=== PATIENT | female | born 1955 | race Caucasian/White ===

== ENCOUNTER → 2019-08-03 10:33 | Outpatient (BNVA) | payer MEDICARE, MEDICAID, SELFPAY | PROVIDERS: Family Provider Family Medicine; Visit Provider Nurse Practitioner Psychiatric/Mental Health | DX: F43.12 Post-traumatic stress disorder, chronic (principal); F32.4 Major depressive disorder, single episode, in partial remission; F33.41 Major depressive disorder, recurrent, in partial remission | CPT/HCPCS: 99214 ==

== ENCOUNTER → 2019-10-13 08:20 | Outpatient (BNVA) | payer MEDICARE, MEDICAID, SELFPAY | PROVIDERS: Family Provider Family Medicine; Visit Provider Nurse Practitioner Psychiatric/Mental Health | DX: F43.12 Post-traumatic stress disorder, chronic (principal); F32.4 Major depressive disorder, single episode, in partial remission; F33.41 Major depressive disorder, recurrent, in partial remission; F41.8 Other specified anxiety disorders | CPT/HCPCS: 99214 ==

== ENCOUNTER → 2019-10-27 07:40 | Outpatient (BNVA) | payer MEDICARE, MEDICAID, SELFPAY | PROVIDERS: Family Provider Family Medicine; Visit Provider Nurse Practitioner Psychiatric/Mental Health | DX: F43.12 Post-traumatic stress disorder, chronic (principal); F32.4 Major depressive disorder, single episode, in partial remission; F33.41 Major depressive disorder, recurrent, in partial remission; F41.8 Other specified anxiety disorders | CPT/HCPCS: 99214 ==

== ENCOUNTER → 2019-11-23 07:30 | Outpatient (BNVA) | payer MEDICARE, MEDICAID, SELFPAY | PROVIDERS: Family Provider Family Medicine; Visit Provider Nurse Practitioner Psychiatric/Mental Health | DX: F33.41 Major depressive disorder, recurrent, in partial remission (principal); F41.8 Other specified anxiety disorders; F43.12 Post-traumatic stress disorder, chronic | CPT/HCPCS: 99214 ==

== ENCOUNTER 2019-11-25 00:02 | Emergency (ER) | payer MEDICARE, MEDICAID, SELFPAY ==
[2019-11-25 00:06] VITALS: BP 143/84; PULSE 87; RESP 18; TEMP 36.1; O2SAT 97; BMI 34.5
--- NOTE | 2019-11-25 00:09 | W.ED.EYEPROB ---
HPI - Eye Problem General: Chief complaint: Eye Problems Stated complaint: FOREIGN BODY IN EYE Time Seen by Provider: 11/25/19 00:09 Source: patient Mode of arrival: ambulatory Limitations: no limitations History of Present Illness: HPI Narrative: Patient comes in for eye irritation to the left eye. Patient states that while she was reading she felt like something had gone into her eye. Patient had rubbed it quite a bit at home but and check to see if she got out but could not tell. Patient appears well. Patient appears in no acute distress at this time. Review of Systems General: Reports: 10 or more systems reviewed and unremarkable except in HPI and below Eyes: Reports: eye discomfort PFSH ED PFSH: Medical History (Updated 11/25/19 @ 00:31 by [facility] Mitchell) Chronic post-traumatic stress disorder High blood pressure High cholesterol History of fibromyalgia History of skull fracture Major depressive disorder, recurrent episode, in partial remission with anxious distress Neuropathy Obstructive sleep apnea Osteoarthritis Type 2 diabetes mellitus Surgical History (Updated 06/30/19 @ 15:14 by Lisa Solorzano LPN) History of bilateral knee replacement History of carpal tunnel surgery Hx of rotator cuff surgery Family History (Updated 06/30/19 @ 15:16 by Lisa Solorzano LPN) Son Suicide Other Diabetes Hypertension Psychiatric illness Social History (Updated 08/03/19 @ 10:38 by Lisa Solorzano LPN) Smoking and tobacco status: never smoked Physical Exam Const: COMMON NORMALS: no acute distress and patient oriented x3 GENERAL APPEARANCE: cooperative HENMT: COMMON NORMALS: normocephalic, TM's normal bilaterally and Normal external nose present HEAD & SCALP: normal to inspection and normocephalic NOSE: Normal external nose present TYMPANIC MEMBRANE: TM's normal bilaterally MOUTH: Normal oral and palatal mucosa present THROAT: posterior oropharynx normal Eye: COMMON NORMALS: Equal, round and reactive pupils present and conjunctivae normal GENERAL EYE: appearance normal, both eyes and all related structures and normal light reflex EYELID: eyelids normal CONJUNCTIVA: Yes conjunctivae normal PUPIL: Yes Equal, round and reactive pupils present DIRECT OPHTHALMOSCOPY: Yes normal light reflex SLIT LAMP EXAM: Yes cornea (No foreign body was present. Eye was irrigated and medication was applied for comfort.) Cornea details: normal appearing Neck/C-Spine: COMMON NORMALS: full ROM Lymph: LYMPHATIC: no lymphadenopathy noted Chest: COMMONS NORMALS: normal inspection of the chest Resp: COMMON NORMALS: normal respiratory effort EFFORT & INSPECTION: Yes able to speak in complete sentences Cardio: COMMON NORMALS: regular rate and regular rhythm RATE: regular rate RHYTHM: regular rhythm GI: COMMON NORMALS: non-tender : COMMON NORMALS: Yes no CVA tenderness BLADDER/KIDNEY EXAM: Yes no CVA tenderness Back/Pelvis: COMMON NORMALS: no CVA tenderness and thoracic and lumbar spine normal to inspection Extremity: COMMON NORMALS: normal to inspection Neuro: COMMON NORMALS: patient oriented x3 and moves all extremities Psych: COMMON NORMALS: mental status grossly normal and cooperative Skin: COMMON NORMALS: no rashes or lesions noted GENERAL SKIN EXAM: no rashes or lesions noted Procedures FB Removal Eye Location: eye (L) Topical anesthetic used: tetracaine Evidence of corneal penetration: No Technique: irrigation Procedure performed under: direct visualization with magnification Post-procedure medication: ophthalmic antibiotic Patient tolerated procedure: well Complications: other (No foreign body was identified before or after procedure.) Course Vital Signs: Vital signs: Vital Signs Temperature 97.0 F L 11/25/19 00:06 Pulse Rate 87 20 00:06 Respiratory Rate 18 20 00:06 Blood Pressure 143/84 11/25/19 00:06 Pulse Oximetry 97 11/25/19 00:06 MDM - Eye Problem MDM Narrative: Medical decision making narrative: Patient comes in today for complaints of discomfort to the left eye. On exam fluorescein stain was used along with lidocaine and eyestrain medication to clear the eye of any foreign body. No foreign body was located. No significant abrasion or corneal scratch was noted. Differential diagnosis includes foreign body, corneal abrasion, conjunctivitis. I believe the patient probably had a foreign body in the eye and an she has sustained a small scratch to the cornea that was unable to visualize due to either placement or location of the scratch under the upper eyelid. We had thoroughly irrigated the eye. Patient tolerated well and felt better after procedure. Patient will be continued on antibiotic ointment eyedrops with steroid for comfort. Patient reports understanding of care plan and need for follow-up. Discharge Plan Discharge Patient Disposition: Home, Self-Care Clinical Impression: Sensation of foreign body in eye Condition: Stable Prescriptions: No Action gabapentin 300 mg capsule 300 mg PO DAILY RF: 0 omega-3 fatty acids [Fish Oil Concentrate] 1,000 mg capsule 1,000 mg PO BID RF: 0 tramadol 50 mg tablet 50 mg PO DAILY PRNRF: 0 hydrocodone-acetaminophen 10-325 mg tablet 1 tab PO Q4H PRNRF: 0 meloxicam 7.5 mg tablet 7.5 mg PO ONCE RF: 0 atorvastatin 80 mg tablet 80 mg PO ONCE RF: 0 topiramate [Topamax] 100 mg tablet 100 mg PO BID RF: 0 levocetirizine [Allergy Relief (levocetirizin)] 5 mg tablet 5 mg PO ONCE RF: 0 oxybutynin chloride 5 mg tablet extended release 24hr 10 mg PO ONCE RF: 0 metformin 500 mg tablet 1,000 mg PO BID RF: 0 lisinopril 10 mg tablet 5 mg PO DAILY RF: 0 venlafaxine [Effexor XR] 150 mg capsule,extended release 24hr 150 mg PO QAM Qty: 90 RF: 2 venlafaxine [Effexor XR] 75 mg capsule,extended release 24hr 75 mg PO QAM Qty: 90 RF: 2 aripiprazole [Abilify] 10 mg tablet 10 mg PO .evening Qty: 90 RF: 2 Discharge Orders: Discharge Order (Routine); Ordered 11/25/19 Ordered By: Luis Goins Referrals: Savannah Jerry MD [Family Provider] - Discharge Diet: Usual diet Discharge Activity: Increase activity as tolerated Activity Restrictions/Additional Instructions: Home and rest. Use eyedrops 1 drop to the affected eye 4 times a day for the next 3 to 5 days. Have eye rechecked in 3 days if continued complaints. Return to the ER for worsening symptoms or new concerns. Coding Level of Care Code ED Hydraulic Controls Technician for Gloria Valdez Exam Comprehensive
[2019-11-25] MEDS: tobramycin-dexametha Op Susp 5 mL Btl 2 DROP EYE-LEFT (00:30)
[2019-11-25] MEDS: tetracaine 0.5% Op Soln 4 mL Btl 1 DROP EYE-LEFT (00:31)
[2019-11-25] MEDS: fluorescein 1 mg Strip EYE-LEFT (00:32)
[2019-11-25] MEDS: eye irrigation 30 mL Btl EYE-LEFT (00:32)
== END 2019-11-25 00:40 | disposition home or self-care (01) ==
PROVIDERS: Emergency Provider Nurse Practitioner Family; Family Provider Family Medicine
DX: H57.12 Ocular pain, left eye (principal); E11.40 Type 2 diabetes mellitus with diabetic neuropathy, unspecified
CPT/HCPCS: 12345; 99281; 99283

== ENCOUNTER 2019-12-03 20:54 | Emergency (ER) | payer MEDICARE, MEDICAID, SELFPAY ==
[2019-12-03 21:01] VITALS: BP 100/72; PULSE 88; RESP 18; TEMP 36.4; O2SAT 97; BMI 34.0
--- NOTE | 2019-12-03 21:10 | ED_ITS ---
HPI - Skin/Abscess/Foreign Bdy General: Chief complaint: Skin/Abscess/Foreign Body Stated complaint: bite Time Seen by Provider: 12/03/19 21:05 History of Present Illness: HPI narrative: Patient states he was bit by some earlier today near her left elbow and is just been itching ever since and she like to have some medicine for the itching has no other signs of allergic reaction MD complaint: insect bite/sting Onset (ago): hour(s) Tetanus up to date: yes Location: LUE Severity: mild Quality: pruritic Associated symptoms: Deny chills, fever(s), nausea or vomiting Review of Systems Const: Denies: fever(s), chills or body aches Eyes: Denies: change in vision or blurry vision ENMT: Denies: throat pain or nasal congestion Card: Denies: chest pain or dyspnea on exertion Resp: Denies: dyspnea, productive cough or non-productive cough GI: Denies: abdominal pain, nausea or vomiting Musc: Denies: extremity pain Skin/Breast: Reports: other (Insect bite left elbow); Denies: rash Neuro: Denies: headache(s) Psych: Denies: anxiety or depression Raymond/Lymph: Denies: easy bruising PFSH ED PFSH: Medical History (Updated 12/03/19 @ 21:10 by [facility] Mcfarland) Chronic post-traumatic stress disorder High blood pressure High cholesterol History of fibromyalgia History of skull fracture Major depressive disorder, recurrent episode, in partial remission with anxious distress Neuropathy Obstructive sleep apnea Osteoarthritis Type 2 diabetes mellitus Surgical History (Updated 06/30/19 @ 15:14 by Lisa Solorzano LPN) History of bilateral knee replacement History of carpal tunnel surgery Hx of rotator cuff surgery Family History (Updated 06/30/19 @ 15:16 by Lisa Solorzano LPN) Son Suicide Other Diabetes Hypertension Psychiatric illness Social History (Updated 08/03/19 @ 10:38 by Lisa Solorzano LPN) Smoking and tobacco status: never smoked Physical Exam Const: COMMON NORMALS: no acute distress, average body habitus and patient oriented x3 HENMT: COMMON NORMALS: normocephalic HEAD & SCALP: normal to inspection and normocephalic FACE & SINUS: normal facial exam Eye: COMMON NORMALS: conjunctivae normal GENERAL EYE: appearance normal, both eyes and all related structures CONJUNCTIVA: Yes conjunctivae normal Neck/C-Spine: COMMON NORMALS: no JVD Chest: COMMONS NORMALS: normal inspection of the chest Resp: COMMON NORMALS: normal respiratory effort and clear to auscultation bilaterally AUSCULTATION: clear to auscultation bilaterally Cardio: COMMON NORMALS: no JVD, regular rate and regular rhythm RATE: regular rate RHYTHM: regular rhythm GI: COMMON NORMALS: Normal to inspection, nondistended, normoactive bowel sounds present Extremity: COMMON NORMALS: normal to inspection and full ROM Neuro: COMMON NORMALS: patient oriented x3 Skin: NARRATIVE SKIN EXAM: Slight area of redness to the left elbow obvious bite but no erythema no swelling no rashes Course Vital Signs: Vital signs: Vital Signs Temperature 97.5 F L 12/03/19 21:01 Pulse Rate 88 12/03/19 21:01 Respiratory Rate 18 12/03/19 21:01 Blood Pressure 100/72 12/03/19 21:01 Pulse Oximetry 97 12/03/19 21:01 Discharge Plan Discharge Patient Disposition: Home, Self-Care Clinical Impression: Insect bites Qualifiers: Encounter type: initial encounter Site of insect bite: forearm Laterality: left Qualified Code(s): S50.862A - Insect bite (nonvenomous) of left forearm, initial encounter Condition: Stable Prescriptions: New hydroxyzine HCl 25 mg tablet 25 mg PO TID PRN (Reason: itching) Qty: 10 RF: 0 Medrol (Robert) 4 mg tablets,dose pack See Rx Instructions .ROUTE .COMPLEX Qty: 21 RF: 0 No Action gabapentin 300 mg capsule 300 mg PO DAILY RF: 0 omega-3 fatty acids [Fish Oil Concentrate] 1,000 mg capsule 1,000 mg PO BID RF: 0 tramadol 50 mg tablet 50 mg PO DAILY PRNRF: 0 hydrocodone-acetaminophen 10-325 mg tablet 1 tab PO Q4H PRNRF: 0 meloxicam 7.5 mg tablet 7.5 mg PO ONCE RF: 0 atorvastatin 80 mg tablet 80 mg PO ONCE RF: 0 topiramate [Topamax] 100 mg tablet 100 mg PO BID RF: 0 levocetirizine [Allergy Relief (levocetirizin)] 5 mg tablet 5 mg PO ONCE RF: 0 oxybutynin chloride 5 mg tablet extended release 24hr 10 mg PO ONCE RF: 0 metformin 500 mg tablet 1,000 mg PO BID RF: 0 lisinopril 10 mg tablet 5 mg PO DAILY RF: 0 venlafaxine [Effexor XR] 150 mg capsule,extended release 24hr 150 mg PO QAM Qty: 90 RF: 2 venlafaxine [Effexor XR] 75 mg capsule,extended release 24hr 75 mg PO QAM Qty: 90 RF: 2 aripiprazole [Abilify] 10 mg tablet 10 mg PO .evening Qty: 90 RF: 2 Discharge Orders: Discharge Order (Routine); Ordered 12/03/19 Ordered By: Fabrizio Zhou Referrals: Savannah Jerry MD [Primary Care Provider] - Discharge Diet: Usual diet Discharge Activity: Resume usual activity Patient Instructions: Insect Bite or Sting (ED) Activity Restrictions/Additional Instructions: Follow-up with medical provider as directed. Take medications as prescribed. Return to the ER or your medical provider if condition worsens. Please read and understand discharge instructions. If any questions ask please. Coding Level of Care Code ED Computer Discovery Teacher for Gloria Valdez
[2019-12-03] MEDS: hyDROXYzine 25 mg Capsule PO (21:15)
[2019-12-03] MEDS: predniSONE 10 mg Tablet PO (21:15)
[2019-12-03 21:25] VITALS: BP 88/63; PULSE 93; RESP 19; O2SAT 97
== END 2019-12-03 21:26 | disposition home or self-care (01) ==
PROVIDERS: Emergency Provider Nurse Practitioner Family; PCP Family Medicine
DX: S50.862A Insect bite (nonvenomous) of left forearm, initial encounter (principal); W57.XXXA Bitten or stung by nonvenomous insect and other nonvenomous arthropods, initial encounter; E11.40 Type 2 diabetes mellitus with diabetic neuropathy, unspecified
CPT/HCPCS: 12345; 99281; 99283; J7512

== ENCOUNTER → 2020-01-18 08:23 | Outpatient (BNVA) | payer MEDICARE, MEDICAID, SELFPAY | PROVIDERS: PCP Family Medicine; Visit Provider Nurse Practitioner Psychiatric/Mental Health | DX: F33.41 Major depressive disorder, recurrent, in partial remission (principal); F41.8 Other specified anxiety disorders; F43.12 Post-traumatic stress disorder, chronic | CPT/HCPCS: 99213 ==

== ENCOUNTER 2020-03-05 09:37 | Outpatient (CLI) | payer MEDICARE, MEDICAID, SELFPAY ==
--- NOTE | 2020-03-05 09:47 | MM_ITS ---
WS: [id number] SCREENING DIGITAL MAMMOGRAM WITH CAD HISTORY: SCREENING COMPARISON: 02/15/2019, 02/13/2019, 01/26/2018 and 09/14/2012 Bilateral CC and MLO views submitted. Computer aided detection analyzed. Breast composition: There are scattered areas of fibroglandular density. Asymmetry noted in the anter ior LEFT breast above the nipple on the lateral projection measures 6 mm. This is probably just centr al or lateral to the nipple on the CC projection. This is not the same asymmetry as described on the prior mammogram. Additional benign calcifications. MM/[place] [id number] IMPRESSION: BI-RADS: 0-Incomplete: Need additional imaging evaluation FOLLOW UP: Need Additional Imaging LEFT breast: Spot compression views (CC and MLO). True ML. Ultrasound to follow if abnormality persists.
== END 2020-03-05 09:38 | disposition home or self-care (01) ==
PROVIDERS: PCP Nurse Practitioner Family; Visit Provider Family Medicine
DX: N64.89 Other specified disorders of breast (principal); Z12.31 Encounter for screening mammogram for malignant neoplasm of breast
CPT/HCPCS: 77067

== ENCOUNTER 2020-04-04 09:08 | Outpatient (CLI) | payer MEDICARE, MEDICAID, SELFPAY ==
--- NOTE | 2020-04-04 09:15 | US_ITS ---
WS: [id number] ADDITIONAL VIEWS LEFT MAMMOGRAM LEFT BREAST ULTRASOUND HISTORY: ABNORMAL MAMMOGRAM COMPARISON: 03/05/2020 and 02/15/2019 and 02/13/2019 LEFT MAMMOGRAM: Spot compression views and true ML. Asymmetry nearly completely resolves in the anterior breast. Small patch of persistent asymmetry at 1 2:00. Ultrasound will be performed. LEFT BREAST ULTRASOUND 2-D and color Doppler imaging submitted. Ultrasound directed circumferentially around the areola. There are several minimally prominent ducts and a small hypoechoic nodule measuring 8 x 3 mm at 12:00 which is benign in appearance and may be in spissated material in the duct. No increased vascularity. US/US breast LT limited* [id number] IMPRESSION: BI-RADS: 2-Benign FOLLOW UP: 1 Year Follow-up
== END 2020-04-04 09:09 | disposition home or self-care (01) ==
LOC: RADSHAW 09:11
PROVIDERS: PCP Nurse Practitioner Family; Visit Provider Nurse Practitioner Family
DX: R92.8 Other abnormal and inconclusive findings on diagnostic imaging of breast (principal); N63.25 Unspecified lump in the left breast, overlapping quadrants
CPT/HCPCS: 76642; 77065

== ENCOUNTER 2020-04-05 09:44 | Outpatient (CLI) | payer MEDICARE, MEDICAID, SELFPAY ==
--- NOTE | 2020-04-05 09:52 | US_ITS ---
WS: [id number] Gallbladder and right upper quadrant ultrasound, 04/05/2020 Clinical Data: EPIGASTRIC ABDOMINAL PAIN/DIARRHEA Comparison: None. Findings: The gallbladder shows no sludge or stone. The wall measures 0.3 cm with no pericholecystic fluid. The common bile duct is 0.3 cm and there are no intrahepatic ductal abnormalities. Liver shows no cysts, masses or dilated intrahepatic ducts. The liver is enlarged measuring 17.47 cm with fatty infiltration The pancreas is not obscured by overlying bowel gas and no cyst, pseudocyst, or evidence of pancreati tis is noted. Right kidney measures 9.9 cm and no cyst, masses or hydronephrosis can be seen. The aorta and inferior vena cava show no vascular abnormalities. US/US abdomen limited [id number] Impression: 1. Negative gallbladder. 2. Fatty infiltration of the liver and hepatomegaly.
== END 2020-04-05 09:45 | disposition home or self-care (01) ==
LOC: US 09:45
PROVIDERS: PCP Nurse Practitioner Family; Visit Provider Nurse Practitioner Family
DX: R10.13 Epigastric pain (principal); R19.7 Diarrhea, unspecified; K76.0 Fatty (change of) liver, not elsewhere classified; R16.0 Hepatomegaly, not elsewhere classified
CPT/HCPCS: 76705

== ENCOUNTER → 2020-04-11 08:27 | Outpatient (BNVA) | payer MEDICARE, MEDICAID, SELFPAY | PROVIDERS: PCP Family Medicine; Visit Provider Nurse Practitioner Psychiatric/Mental Health | DX: F33.41 Major depressive disorder, recurrent, in partial remission (principal); F41.8 Other specified anxiety disorders; F43.12 Post-traumatic stress disorder, chronic | CPT/HCPCS: 99213 ==

== ENCOUNTER 2020-05-03 07:35 | Outpatient (CLI) | payer MEDICARE, MEDICAID, SELFPAY ==
--- NOTE | 2020-05-03 07:39 | NM_ITS ---
WS: [id number] NUCLEAR MEDICINE HIDA SCAN CLINICAL INFORMATION: RUQ ABDOMINAL PAIN TECHNIQUE: Following intravenous administration of 8.0 mCi of technetium 99m mebrofenin, images of th e abdomen were obtained over the course of 60 minutes. Next, gallbladder ejection fraction was determ ined by obtaining preprandial and one-hour postprandial images of the gallbladder following oral quincy stion of Ensure. COMPARISON: None. FINDINGS: Normal hepatic uptake at 5 minutes. Gallbladder is visualized by 10 minutes. Normal hepatic excretion . No evidence of acute cholecystitis. Normal small bowel activity. No evidence of choledocholithiasis . Gallbladder ejection fraction 96% within normal limits. No evidence of chronic cholecystitis. NM/NM hepatobiliary w phar* [id number] IMPRESSION: 1. No evidence of acute or chronic cholecystitis. 2. Normal Gallbladder ejection fraction 96%.
== END 2020-05-03 07:36 | disposition home or self-care (01) ==
LOC: NM 07:36
PROVIDERS: PCP Nurse Practitioner Family; Visit Provider Nurse Practitioner Family
DX: R10.11 Right upper quadrant pain (principal)
CPT/HCPCS: 78227; A9537

== ENCOUNTER 2020-05-13 08:49 | Outpatient (CLI) | payer MEDICARE, MEDICAID, SELFPAY ==
--- NOTE | 2020-05-13 08:56 | CT_ITS ---
WS: [id number] Exam: CT abdomen wo/w con [id number] Date/Time of Exam: 05/13/2020 9:01 AM Reason For Exam: ABDOMINAL PAIN, RIGHT UPPER QUADRANT DLP: 1197.[address] scans at [facility] use at least one of these dose optimization techniques: automat ed exposure control; mA and/or kV adjustment per patient size (includes targeted exams where dose is matched to clinical indication); or iterative reconstruction. 100 mL of the nonionic contrast adminis tered intravenously for the contrast study. Lower lung zones are clear. The liver, gallbladder, stomach, spleen and pancreas appear normal. The a bdominal aorta is normal in caliber. The portal vein and IVC are patent. Normal adrenal glands. No ly mphadenopathy. No free air. Small bowel loops are not dilated. No significant large bowel abnormality seen. No destructive bone lesions. No significant abdominal wall defect. Moderately advanced degener ative changes of the lower lumbar spine. Tiny fat filled periumbilical hernia. CT/CT abdomen wo/w con [id number] IMPRESSION: 1. No mass, lymphadenopathy or acute finding in the abdomen. 2. Moderate atherosclerotic plaquing of the abdominal aorta.
[2020-05-13] MEDS: iohexol 300 mg/mL 50 mL Btl PO (09:15)
[2020-05-13] MEDS: iohexol 300 mg/mL 100 mL Btl IV (09:38)
== END 2020-05-13 08:50 | disposition home or self-care (01) ==
LOC: RADWPI 08:53
PROVIDERS: PCP Nurse Practitioner Family; Visit Provider Nurse Practitioner Family
DX: R10.11 Right upper quadrant pain (principal)
CPT/HCPCS: 74170; Q9967

== ENCOUNTER 2020-07-24 06:00 | Outpatient (RCR) | payer MEDICARE, MEDICAID, SELFPAY | END 2020-07-28 23:59 | disposition home or self-care (01) | LOC: SPT 06:00 | PROVIDERS: PCP Nurse Practitioner Family; Referring Provider Internal Medicine; Visit Provider Internal Medicine | DX: M67.929 Unspecified disorder of synovium and tendon, unspecified upper arm (principal); F33.41 Major depressive disorder, recurrent, in partial remission; F41.8 Other specified anxiety disorders; F43.12 Post-traumatic stress disorder, chronic; F33.2 Major depressive disorder, recurrent severe without psychotic features | CPT/HCPCS: 97110; 99213 ==

== ENCOUNTER 2020-07-29 06:00 | Outpatient (RCR) | payer MEDICARE, MEDICAID, SELFPAY | END 2020-08-25 23:59 | disposition home or self-care (01) | LOC: SPT 06:00 | PROVIDERS: PCP Nurse Practitioner Family; Referring Provider Internal Medicine; Visit Provider Internal Medicine | DX: F33.41 Major depressive disorder, recurrent, in partial remission (principal); F41.8 Other specified anxiety disorders; F43.12 Post-traumatic stress disorder, chronic; F33.2 Major depressive disorder, recurrent severe without psychotic features; M67.929 Unspecified disorder of synovium and tendon, unspecified upper arm | CPT/HCPCS: 97110 ==

== ENCOUNTER 2020-08-26 06:00 | Outpatient (RCR) | payer MEDICARE, MEDICAID, SELFPAY | END 2020-09-25 23:59 | disposition home or self-care (01) | LOC: SPT 06:00 | PROVIDERS: PCP Nurse Practitioner Family; Referring Provider Internal Medicine; Visit Provider Internal Medicine | DX: F33.41 Major depressive disorder, recurrent, in partial remission (principal); F41.8 Other specified anxiety disorders; F43.12 Post-traumatic stress disorder, chronic; F33.2 Major depressive disorder, recurrent severe without psychotic features; M67.929 Unspecified disorder of synovium and tendon, unspecified upper arm | CPT/HCPCS: 97110 ==

== ENCOUNTER 2020-09-26 06:00 | Outpatient (RCR) | payer MEDICARE, MEDICAID, SELFPAY | END 2020-10-25 23:59 | disposition home or self-care (01) | LOC: SPT 06:00 | PROVIDERS: PCP Nurse Practitioner Family; Referring Provider Internal Medicine; Visit Provider Internal Medicine | DX: F33.41 Major depressive disorder, recurrent, in partial remission (principal); F41.8 Other specified anxiety disorders; F43.12 Post-traumatic stress disorder, chronic; F33.2 Major depressive disorder, recurrent severe without psychotic features | CPT/HCPCS: 97110 ==

== ENCOUNTER 2020-10-11 10:40 | Outpatient (CLI) | payer MEDICARE, MEDICAID, SELFPAY ==
--- NOTE | 2020-10-11 10:49 | XR_ITS ---
WS: [id number] Right shoulder, 2 views, 10/11/2020 Clinical Data: R SHOULDER PAIN/BICEPS TENDON DISORDER/R ARM PAIN Comparison: None. Findings: No fractures or dislocations are seen. The AC joint is normal. The adjacent right clavicle, right sca pula and ribs are normal. The soft tissues are unremarkable. The patient has had cervical disc surgery. XR/XR shoulder RT min 2V* [id number] Impression: Negative right shoulder.
== END 2020-10-11 10:41 | disposition home or self-care (01) ==
LOC: RAD 10:47
PROVIDERS: PCP Nurse Practitioner Family; Visit Provider Nurse Practitioner Family
DX: M25.511 Pain in right shoulder (principal); M79.601 Pain in right arm; M67.921 Unspecified disorder of synovium and tendon, right upper arm
CPT/HCPCS: 73030

== ENCOUNTER → 2020-10-15 09:25 | Outpatient (BNVA) | payer MEDICARE, MEDICAID, SELFPAY | PROVIDERS: PCP Nurse Practitioner Family; Visit Provider Nurse Practitioner Psychiatric/Mental Health | DX: F33.41 Major depressive disorder, recurrent, in partial remission (principal); F41.8 Other specified anxiety disorders; F43.12 Post-traumatic stress disorder, chronic | CPT/HCPCS: 99213 ==

== ENCOUNTER 2020-10-16 10:48 | Emergency (ER) | payer MEDICARE, MEDICAID, SELFPAY ==
[2020-10-16 11:10] VITALS: PULSE 101; RESP 16; TEMP 36.5; O2SAT 95; BMI 33.6
--- NOTE | 2020-10-16 11:12 | ED_ITS ---
HPI - General Adult General: Chief complaint: Nausea/Vomiting/Diarrhea Stated complaint: AB PAIN, VOMITING Time Seen by Provider: 10/16/20 11:09 History of Present Illness: HPI narrative: 65-year-old female presents with some generalized malaise and not feeling well for about 3 days. Patient reports that she had a bit of a stomach cramp today vomited x1. Reports that she has had a recent urinary tract infection and is on day 6 of 10 out of Bactrim. She does not report any fevers. Her biggest concern is she just feels little bit shaky. She reports she is diabetic and only on Metformin. She does not check her blood sugars. No reports of cough. She states that she has not had a bowel movement in about 4 to 5 days. No other systemic complaints. Associated symptoms: Reports malaise and nausea; Deny chest pain, dyspnea, headache(s), rash or palpitations Review of Systems Const: Reports: malaise; Denies: fever(s) or chills Eyes: Denies: change in vision ENMT: Denies: throat pain or mouth pain Card: Denies: chest pain, palpitations or irregular heart rhythm Resp: Denies: dyspnea or productive cough GI: Reports: abdominal pain (With vomiting), nausea, vomiting and constipation : Reports: other (Please see HPI); Denies: flank pain Skin/Breast: Denies: rash Neuro: Reports: other (Shaky); Denies: headache(s) [facility] ED PFSH: Medical History Chronic post-traumatic stress disorder High blood pressure High cholesterol History of fibromyalgia History of skull fracture Major depressive disorder, recurrent episode, in partial remission with anxious distress Neuropathy Obstructive sleep apnea Osteoarthritis Type 2 diabetes mellitus Surgical History History of bilateral knee replacement History of carpal tunnel surgery Hx of rotator cuff surgery Family History Son Suicide Other Diabetes Hypertension Psychiatric illness Social History Smoking and tobacco status: never smoked Physical Exam Const: COMMON NORMALS: no acute distress and patient oriented x3 GENERAL APPEARANCE: cooperative NUTRITIONAL APPEARANCE: overweight ORIENTATION/CONSCIOUSNESS: Yes awake Resp: COMMON NORMALS: normal respiratory effort and clear to auscultation bilaterally EFFORT & INSPECTION: Yes able to speak in complete sentences AUSCULTATION: clear to auscultation bilaterally Cardio: COMMON NORMALS: regular rate and regular rhythm RATE: regular rate RHYTHM: regular rhythm GI: COMMON NORMALS: Soft to palpation and non-tender PALPATION: Yes Soft to palpation : COMMON NORMALS: Yes no CVA tenderness BLADDER/KIDNEY EXAM: Yes no CVA tenderness Back/Pelvis: COMMON NORMALS: no CVA tenderness Extremity: COMMON NORMALS: full ROM Neuro: COMMON NORMALS: patient oriented x3 and no focal motor deficits COORDINATION/BALANCE: other (Mild shakes/tremors) SPEECH: speech normal COORDINATION: other (Mild shakes/tremors) Psych: APPEARANCE: Yes grossly normal ATTITUDE: Yes calm ACTIVITY/MOTOR BEHAVIOR: Yes appropriate eye contact Skin: COMMON NORMALS: no rashes or lesions noted GENERAL SKIN EXAM: no rashes or lesions noted Course Vital Signs: Vital signs: Vital Signs Temperature 97.7 F 10/16/20 11:10 Pulse Rate 90 10/16/20 11:48 Respiratory Rate 15 10/16/20 11:48 Blood Pressure 98/73 10/16/20 11:48 Pulse Oximetry 96 10/16/20 11:48 MDM - General Adult MDM Narrative: Medical decision making narrative: Patient is feeling better following some IV fluids. She does have some mild constipation on x-ray. Patient is urine seems to be improving. Patient will stable and will be discharged home. She is to follow-up with her primary care provider in a couple days for recheck of her symptoms and her labs. Lab Data: Labs: Lab Results 10/16/20 10/16/20 10/16/20 Range/Units 11:25 11:37 11:45 WBC 7.1 (4.0-10.0) 10^3/ uL RBC 5.01 (4.1-5.3) 10^6/u L Hgb 14.3 (11.5-15.3) g/dL Hct 45.4 (37.0-47.0) % MCV 90.6 (81-99) fL MCH 28.5 (28.0-34.0) pg MCHC 31.5 (30.0-36.0) g/dL RDW 13.0 (12.1-15.1) % Plt Count 297 (130-400) 10^3/c mm MPV 10.5 H (7.4-10.4) fL Neut % (Auto) 55.7 % Lymph % (Auto) 35.8 % [place] % (Auto) 6.7 % Eos % (Auto) 1.1 % Baso % (Auto) 0.6 % Neut # (Auto) 3.97 (1.8-7.7) 10^3/u L Lymph # (Auto) 2.6 (0.8-4.8) 10^3/u L [place] # (Auto) 0.5 (0.2-0.9) 10^3/u L Eos # (Auto) 0.1 (0.0-0.8) 10^3/u L Baso # (Auto) 0.0 (0.0-0.1) 10^3/u L Nucleated RBC % (a uto) 0 % Nucleated RBCs # 0.0 /100WBC Sodium (136-145) mmol/L Potassium (3.5-5.1) mmol/L Chloride (98-107) mmol/L Carbon Dioxide (22-29) mmol/L Anion Gap (5-19) BUN (8-23) mg/dL Creatinine (0.5-0.9) mg/dL GFR Calculation (90-130) mL/min Glucose (65-115) mg/dL POC Glucose 167 H (70-110) mg/dL Calculated Osmolal ity (285-295) mOsm/k g Calcium (8.5-10.5) mg/dL Total Bilirubin (0.15-1.2) mg/dL AST (0-32) U/L ALT (0-33) U/L Alkaline Phosphata se (35-105) IU/L Total Protein (6.6-8.7) g/dL Albumin (3.5-5.2) g/dL Globulin (1.3-4.6) g/dL Lipase (13-60) U/L Urine Color Yellow (Yellow) Urine Appearance Hazy A (CLEAR) Urine pH 5 (5-7) Ur Specific Gravit y 1.025 (1.005-1.030) Urine Protein Neg (Negative) Urine Glucose (UA) Norm (Normal) Urine Ketones Negative (Negative) Urine Blood Neg (Negative) Urine Nitrate Negative (Negative) Urine Bilirubin 1+ H (Negative) Urine Urobilinogen Norm (Negative) mg/dL Ur Leukocyte Guillermina ase Negative (Negative) Urine RBC None (0-2) /hpf Urine WBC 0-4 H (0-5) /hpf Ur Squamous Epith Cells 10-15 H (0-5) /hpf Uric Acid Crystals 0-4 /hpf Amorphous Sediment Not Reportable Urine Bacteria Trace (NONE) /hpf Hyaline Casts 0-4 H /lpf 10/16/20 Range/Units 11:45 WBC (4.0-10.0) 10^3/ uL RBC (4.1-5.3) 10^6/u L Hgb (11.5-15.3) g/dL Hct (37.0-47.0) % MCV (81-99) fL MCH (28.0-34.0) pg MCHC (30.0-36.0) g/dL RDW (12.1-15.1) % Plt Count (130-400) 10^3/c mm MPV (7.4-10.4) fL Neut % (Auto) % Lymph % (Auto) % [place] % (Auto) % Eos % (Auto) % Baso % (Auto) % Neut # (Auto) (1.8-7.7) 10^3/u L Lymph # (Auto) (0.8-4.8) 10^3/u L [place] # (Auto) (0.2-0.9) 10^3/u L Eos # (Auto) (0.0-0.8) 10^3/u L Baso # (Auto) (0.0-0.1) 10^3/u L Nucleated RBC % (a uto) % Nucleated RBCs # /100WBC Sodium 138 (136-145) mmol/L Potassium 4.6 (3.5-5.1) mmol/L Chloride 101 (98-107) mmol/L Carbon Dioxide 22 (22-29) mmol/L Anion Gap 19.6 H (5-19) BUN 42 H (8-23) mg/dL Creatinine 1.6 H (0.5-0.9) mg/dL GFR Calculation 32.6 L (90-130) mL/min Glucose 164 H (65-115) mg/dL POC Glucose (70-110) mg/dL Calculated Osmolal ity 300 H (285-295) mOsm/k g Calcium 10.0 (8.5-10.5) mg/dL Total Bilirubin 0.2 (0.15-1.2) mg/dL AST 23 (0-32) U/L ALT 28 (0-33) U/L Alkaline Phosphata se 91 (35-105) IU/L Total Protein 7.5 (6.6-8.7) g/dL Albumin 4.9 (3.5-5.2) g/dL Globulin 2.6 (1.3-4.6) g/dL Lipase 60 (13-60) U/L Urine Color (Yellow) Urine Appearance (CLEAR) Urine pH (5-7) Ur Specific Gravit y (1.005-1.030) Urine Protein (Negative) Urine Glucose (UA) (Normal) Urine Ketones (Negative) Urine Blood (Negative) Urine Nitrate (Negative) Urine Bilirubin (Negative) Urine Urobilinogen (Negative) mg/dL Ur Leukocyte Guillermina ase (Negative) Urine RBC (0-2) /hpf Urine WBC (0-5) /hpf Ur Squamous Epith Cells (0-5) /hpf Uric Acid Crystals /hpf Amorphous Sediment Urine Bacteria (NONE) /hpf Hyaline Casts /lpf Imaging Data^: KUB: Attestation: I personally reviewed and interpreted this imaging study as follows: My impression: moderate constipation Radiologist's impression: Findings: No abnormal intraabdominal masses or calcifications are seen. There is no dilatated small bowel or evidence of obstruction. There is a moderate amount of fecal material in the transverse and descending colons. Degenerative change of the lower lumbar spine is moderate. XR/XR KUB portable [id number] Impression: Discharge Plan Discharge Patient Disposition: Home Condition: Stable Prescriptions: No Action gabapentin 300 mg capsule 300 mg PO DAILY RF: 0 omega-3 fatty acids [Fish Oil Concentrate] 1,000 mg capsule 1,000 mg PO BID RF: 0 tramadol 50 mg tablet 50 mg PO DAILY PRNRF: 0 hydrocodone-acetaminophen 10-325 mg tablet 1 tab PO Q4H PRNRF: 0 meloxicam 7.5 mg tablet 7.5 mg PO ONCE RF: 0 atorvastatin 80 mg tablet 80 mg PO ONCE RF: 0 topiramate [Topamax] 100 mg tablet 100 mg PO BID RF: 0 levocetirizine [Allergy Relief (levocetirizin)] 5 mg tablet 5 mg PO ONCE RF: 0 oxybutynin chloride 5 mg tablet extended release 24hr 10 mg PO ONCE RF: 0 metformin 500 mg tablet 1,000 mg PO BID RF: 0 venlafaxine [Effexor XR] 150 mg capsule,extended release 24hr 150 mg PO QAM Qty: 90 RF: 2 venlafaxine [Effexor XR] 75 mg capsule,extended release 24hr 75 mg PO QAM Qty: 90 RF: 2 aripiprazole [Abilify] 10 mg tablet 10 mg PO .evening Qty: 90 RF: 2 lisinopril 10 mg tablet 5 mg PO DAILY RF: 0 coenzyme Q10 100 mg capsule 100 mg PO DAILY RF: 0 Medrol (Robert) 4 mg tablets,dose pack See Rx Instructions .ROUTE .COMPLEX Qty: 21 RF: 0 Discharge Orders: Discharge ED (Routine); Ordered 10/16/20 Ordered By: Sina Rangel Referrals: Rk Garcia NP [Primary Care Provider] - Discharge Diet: Usual diet Discharge Activity: Resume usual activity Patient Instructions: Opioid Safety, Acute Kidney Injury (GEN), Constipation (ED) Activity Restrictions/Additional Instructions: Stop Bactrim after tomorrow. Follow-up with your primary care provider next week for recheck of today's symptoms and your kidney function Coding Level of Care Code ED [place] Machine Operator for Gloria Fwd Exam Comprehensive
--- NOTE | 2020-10-16 11:16 | XR_ITS ---
WS: [id number] KUB, AP view, 10/16/2020 Clinical Data: constipation Comparison: Acute abdomen series, 01/05/2016. Findings: No abnormal intraabdominal masses or calcifications are seen. There is no dilatated small bowel or ev idence of obstruction. There is a moderate amount of fecal material in the transverse and descending colons. Degenerative ch estrada of the lower lumbar spine is moderate. XR/XR KUB portable [id number] Impression: Negative KUB.
[2020-10-16 11:30] LABS: Glucose Point of Care 167 mg/dL (70-110)
[2020-10-16] MEDS: lactated ringers 1,000 ML 999 ML IV (11:47)
[2020-10-16] MEDS: ondansetron 2 mg/ML SDV 2 mL 4 MG IVP (11:47)
[2020-10-16 11:48] VITALS: BP 98/73; PULSE 90; RESP 15; O2SAT 96
[2020-10-16 11:55] LABS: Basophils % 0.6 %; Eosinophils # 0.1 10^3/uL (0.0-0.8); Eosinophils % 1.1 %; Hematocrit 45.4 % (37.0-47.0); Hemoglobin 14.3 g/dL (11.5-15.3); Lymphocytes # 2.6 10^3/uL (0.8-4.8); Lymphocytes % 35.8 %; Mean Corpuscular HGB Conc 31.5 g/dL (30.0-36.0); Mean Corpuscular Hemoglobin 28.5 pg (28.0-34.0); Mean Corpuscular Volume 90.6 fL (81-99); Mean Platelet Volume 10.5 fL (7.4-10.4); Monocytes # 0.5 10^3/uL (0.2-0.9); Monocytes % 6.7 %; Neutrophils # 3.97 10^3/uL (1.8-7.7); Neutrophils % 55.7 %; Nucleated Red Blood Cells % 0 %; Platelet Count 297 10^3/cmm (130-400); Red Blood Count 5.01 10^6/uL (4.1-5.3); White Blood Count 7.1 10^3/uL (4.0-10.0)
[2020-10-16 12:17] LABS: Urine Appearance Hazy (CLEAR); Urine Color Yellow (Yellow); pH Urine 5 (5-7)
[2020-10-16 12:18] LABS: Add Urine Microscopic? YES; Blood Urine Neg (Negative); Glucose Urine UA Norm (Normal); Ketones Urine Negative (Negative); Leukocyte Esterase Urine Negative (Negative); Nitrate Urine Negative (Negative); Protein Urine Neg (Negative); Specific Gravity, Urine 1.025 (1.005-1.030); Urobilinogen Urine Norm (Negative)
[2020-10-16 12:29] LABS: Alanine Aminotransferase 28 U/L (0-33); Albumin Level 4.9 g/dL (3.5-5.2); Alkaline Phosphatase 91 IU/L (35-105); Anion Gap 19.6 (5-19); Aspartate Amino Transferase 23 U/L (0-32); Blood Urea Nitrogen 42 mg/dL (8-23); Carbon Dioxide 22 mmol/L (22-29); Chloride 101 mmol/L (98-107); Globulin 2.6 g/dL (1.3-4.6); Glomerular Filtration Rate 32.6 mL/min (90-130); Glucose 164 mg/dL (65-115); Lipase 60 U/L (13-60); Osmolality Calculated 300 mOsm/kg (285-295); Potassium 4.6 mmol/L (3.5-5.1); Sodium 138 mmol/L (136-145); Total Bilirubin 0.2 mg/dL (0.15-1.2); Total Protein 7.5 g/dL (6.6-8.7)
[2020-10-16 12:40] LABS: Bilirubin Urine 1+ (Negative)
[2020-10-16 12:42] LABS: Bacteria Urine TRACE /hpf; Hyaline Casts Urine 0-4 /lpf; WBC Urine 0-4 /hpf (0-5)
[2020-10-16 12:49] LABS: Add Urine Culture? No; Uric Acid Crystals Urine 0-4 /hpf
[2020-10-16 13:11] VITALS: BP 102/63; PULSE 83; RESP 15; O2SAT 98
== END 2020-10-16 13:17 | disposition home or self-care (01) ==
PROVIDERS: Emergency Provider Student in an Organized Health Care Education/Training Program; PCP Nurse Practitioner Family
DX: R11.0 Nausea (principal); R53.81 Other malaise; E11.40 Type 2 diabetes mellitus with diabetic neuropathy, unspecified
CPT/HCPCS: 36416; 74018; 80053; 81001; 82962; 83690; 85025; 96361; 96374; 99283; J2405

== ENCOUNTER 2021-01-27 06:27 | Outpatient (CLI) | payer MEDICARE, MEDICAID, SELFPAY ==
--- NOTE | 2021-01-27 | USCV_ITS ---
Corrine eRn Age: 65 Gender: F : 1955 Exam Date: 01/27/2021 06:49 Ordering Phys: Kelli Robbins Technologist: Tena Fiore [place] [facility] [place]: SMOKER/DM2 RIGHT LEFT Brachial 113.00 mmHg Brachial 114.00 mmHg Pressure (mmHg) Waveform Pressure (mmHg) Waveform 136.00 TRANSMISSION AND COORDINATION ENGINEER 135.00 131.00 DPA 137.00 1.19 Ankle/Brachial Index 1.20 94.00 Pre-Exercise Toe Pressure 75.00 0.82 Pre-Exercise Toe/Brachial Index 0.66 FINDINGS Normal resting DEBORAH and TBI on the right side Normal resting DEBORAH with a slightly diminished resting TBI on the left side CONCLUSIONS No significant arterial obstruction on the right side Features of mild peripheral artery disease on the left side Dr Miley Knox MD FAC (Electronically Signed) Final Date: 02 February 2021 18:38 S
--- NOTE | 2021-01-27 | US_ITS ---
WS: [id number] INDICATION: Right upper arm pain TECHNIQUE: Ultrasound right upper arm area of concern FINDINGS: Ultrasound right upper arm area of concern. No evidence of cystic or solid mass. No drainab le fluid collections. No suspicious findings. US/US soft tissue/extremity [id number] IMPRESSION: No suspicious findings.
== END 2021-01-27 06:28 | disposition home or self-care (01) ==
PROVIDERS: PCP Nurse Practitioner Family; Visit Provider Nurse Practitioner Family
DX: M79.601 Pain in right arm (principal); F17.210 Nicotine dependence, cigarettes, uncomplicated; E11.9 Type 2 diabetes mellitus without complications
CPT/HCPCS: 76882; 93922

== ENCOUNTER 2021-01-29 08:03 | Outpatient (CLI) | payer MEDICARE, MEDICAID, SELFPAY ==
[2021-01-29 08:39] VITALS: BP 119/75; PULSE 72; RESP 18; O2SAT 98; BMI 24.2
[2021-01-29 09:01] VITALS: BP 103/64; PULSE 101; RESP 16; O2SAT 96
[2021-01-29 11:18] VITALS: BP 103/64; PULSE 101; RESP 19; O2SAT 96
== END 2021-01-29 14:12 | disposition home or self-care (01) ==
PROVIDERS: PCP Nurse Practitioner Family; Visit Provider Nurse Practitioner Family
DX: U07.1 COVID-19 (principal)
CPT/HCPCS: 96365

== ENCOUNTER → 2021-02-06 07:37 | Outpatient (BNVA) | payer MEDICARE, MEDICAID, SELFPAY | PROVIDERS: PCP Nurse Practitioner Family; Visit Provider Nurse Practitioner Psychiatric/Mental Health | DX: F33.41 Major depressive disorder, recurrent, in partial remission (principal); F41.8 Other specified anxiety disorders; F43.12 Post-traumatic stress disorder, chronic | CPT/HCPCS: 99214 ==

== ENCOUNTER 2021-03-06 05:49 | Emergency (ER) | payer MEDICARE, MEDICAID, SELFPAY ==
[2021-03-06 05:51] VITALS: BP 110/79; PULSE 122; RESP 20; TEMP 36.6; O2SAT 96; BMI 31.8
--- NOTE | 2021-03-06 06:09 | ECG_ITS ---
[facility] Test Date: 2021-03-06 Pat Name: Corrine Ren Department: Room: Gender: Female Comprehensive Ophthalmologist: : 1955 Requested By: Vin Lee Order Number: [id number] Nubia MD: Figueroa Carrillo M.D. Measurements Intervals [place] Rate: 95 P: -78 TN: 93 QRS: -17 QRSD: 82 T: 16 QT: 336 QTc: 424 Interpretive Statements ECTOPIC SUPRAVENTRICULAR RHYTHM No previous ECG available for comparison Electronically Signed On 03-06-2021 20:05:31 CDT by Figueroa Carrillo M.D. [id number]
[2021-03-06] MEDS: ondansetron 2 mg/ML SDV 2 mL 4 MG IVP (06:16)
[2021-03-06] MEDS: sodium chloride 0.9% 1,000 ML 999 ML IV (06:16)
--- NOTE | 2021-03-06 06:19 | ED_ITS ---
HPI - Nausea/Vomiting/Diarrhea General: Chief complaint: Nausea/Vomiting/Diarrhea Stated complaint: N\V Diarrhea Time Seen by Provider: 03/06/21 05:59 History of Present Illness: MD elicited complaint: nausea, vomiting and diarrhea Onset (ago): hour(s) Description of vomiting: food contents and bilious Description of diarrhea: semi-solid Associated nausea: Yes Associated abdominal pain: No Location of pain: None Severity: mild Quality: cramping Exacerbating factors: none Relieving factors: none Associated symtoms: Reports nausea; Denies altered mental status, anxiety, bloating, change in vision, chest pain, cough, diaphoresis, decreased urine output, dizziness, dysuria, epistaxis, fatigue, fecal incontinence, fevers/chills, headache(s), anorexia, malaise, myalgias, numbness, palpitations, rash, short of breath, syncope, tenesmus, tinnitus or weakness Review of Systems Const: Denies: fatigue, malaise or diaphoresis Eyes: Denies: change in vision ENMT: Denies: tinnitus or epistaxis Card: Denies: chest pain, palpitations or syncope Resp: Denies: dyspnea, productive cough or non-productive cough GI: Reports: nausea; Denies: bloating or fecal incontinence : Denies: dysuria Skin/Breast: Denies: rash or pruritus Neuro: Denies: headache(s) or dizziness Psych: Denies: anxiety PFSH ED PFSH: Medical History Chronic post-traumatic stress disorder High blood pressure High cholesterol History of fibromyalgia History of skull fracture Major depressive disorder, recurrent episode, in partial remission with anxious distress Neuropathy Obstructive sleep apnea Osteoarthritis Type 2 diabetes mellitus Surgical History History of bilateral knee replacement History of carpal tunnel surgery Hx of rotator cuff surgery Family History Son Suicide Other Diabetes Hypertension Psychiatric illness Social History Smoking and tobacco status: former smoker Physical Exam Const: COMMON NORMALS: no acute distress EXAM LIMITATIONS: no altered mental status GENERAL APPEARANCE: cooperative and comfortable ORIENTATION/CONSCIOUSNESS: Yes awake, Yes oriented to person, Yes oriented to place and Yes oriented to time HENMT: COMMON NORMALS: normocephalic, atraumatic and hearing grossly normal bilaterally HEAD & SCALP: normocephalic and atraumatic Neck/C-Spine: COMMON NORMALS: no JVD Resp: COMMON NORMALS: normal respiratory effort, No retractions, No use of accessory muscles and clear to auscultation bilaterally AUSCULTATION: clear to auscultation bilaterally Cardio: COMMON NORMALS: no JVD, regular rate, regular rhythm and No murmurs present (Cardio) RATE: regular rate RHYTHM: regular rhythm GI: COMMON NORMALS: Soft to palpation and No hepatosplenomegaly present AUSCULTATION: Yes normoactive bowel sounds PALPATION: Yes Soft to palpation, No Tenderness to palpation present (GI), No Guarding due to palpation present (GI) and Yes No hepatosplenomegaly present Extremity: COMMON NORMALS: normal to inspection, capillary refill normal, no clubbing, cyanosis or edema, no calf tenderness and no pedal edema Neuro: SENSORIUM/ORIENTATION: Yes oriented to person, Yes oriented to place and Yes oriented to time Skin: COMMON NORMALS: no rashes or lesions noted GENERAL SKIN EXAM: no rashes or lesions noted Course Vital Signs: Vital signs: Vital Signs Temperature 97.8 F 03/06/21 05:51 Pulse Rate 103 H 03/06/21 08:39 Respiratory Rate 19 H 03/06/21 08:39 Blood Pressure 116/68 03/06/21 08:39 Pulse Oximetry 99 03/06/21 08:39 MDM - Nausea/Vomiting/Diarrhea MDM Narrative: Medical decision making narrative: Patient improved after insulin and fluids we will discharge her home and have her hold her lisinopril continue her other medications give her Zofran to use. Follow-up wth your primary care physician within the next 5 to 7 days. Lab Data: Labs: Lab Results 03/06/21 03/06/21 03/06/21 Range/Units 06:10 06:10 07:16 WBC 11.4 H (4.0-10.0) 10^3/ uL RBC 4.56 (4.1-5.3) 10^6/u L Hgb 13.0 (11.5-15.3) g/dL Hct 40.8 (37.0-47.0) % MCV 89.5 (81-99) fl MCH 28.5 (28.0-34.0) pg MCHC 31.9 (30.0-36.0) g/dL RDW 13.6 (12.1-15.1) % Plt Count 234 (130-400) 10^3/c mm MPV 10.5 H (7.4-10.4) fL Neut % (Auto) 83.1 % Lymph % (Auto) 9.1 % [place] % (Auto) 7.1 % Eos % (Auto) 0.0 % Baso % (Auto) 0.4 % Neut # (Auto) 9.45 H (1.8-7.7) 10^3/u L Lymph # (Auto) 1.0 (0.8-4.8) 10^3/u L [place] # (Auto) 0.8 (0.2-0.9) 10^3/u L Eos # (Auto) 0.0 (0.0-0.8) 10^3/u L Baso # (Auto) 0.0 (0.0-0.1) 10^3/u L Nucleated RBC % (a uto) 0 % Nucleated RBCs # 0.0 /100WBC Sodium 141 (136-145) mmol/L Potassium 4.5 (3.5-5.1) mmol/L Chloride 107 (98-107) mmol/L Carbon Dioxide 17 L (22-29) mmol/L Anion Gap 21.5 H (5-19) BUN 26 H (8-23) mg/dL Creatinine 0.9 (0.5-0.9) mg/dL GFR Calculation 63.2 L (90-130) mL/min Glucose 268 H (65-115) mg/dL POC Glucose (70-110) mg/dL Calculated Osmolal ity 306 H (285-295) mOsm/k g Calcium 8.8 (8.5-10.5) mg/dL Total Bilirubin 0.3 (0.15-1.2) mg/dL AST 22 (0-32) U/L ALT 28 (0-33) U/L Alkaline Phosphata se 94 (35-105) IU/L Creatine Kinase 47 (26-192) U/L Total Protein 7.1 (6.6-8.7) g/dL Albumin 4.3 (3.5-5.2) g/dL Globulin 2.8 (1.3-4.6) g/dL Lipase 40 (13-60) U/L Urine Color Yellow (Yellow) Urine Appearance Clear (CLEAR) Urine pH 5 (5-7) Ur Specific Gravit y 1.020 (1.005-1.030) Urine Protein Neg (Negative) Urine Glucose (UA) Trace H (Normal) Urine Ketones Negative (Negative) Urine Blood Neg (Negative) Urine Nitrate Negative (Negative) Urine Bilirubin Neg (Negative) Urine Urobilinogen Norm (Negative) mg/dL Ur Leukocyte Guillermina ase Negative (Negative) 03/06/21 Range/Units 07:53 WBC (4.0-10.0) 10^3/ uL RBC (4.1-5.3) 10^6/u L Hgb (11.5-15.3) g/dL Hct (37.0-47.0) % MCV (81-99) fl MCH (28.0-34.0) pg MCHC (30.0-36.0) g/dL RDW (12.1-15.1) % Plt Count (130-400) 10^3/c mm MPV (7.4-10.4) fL Neut % (Auto) % Lymph % (Auto) % [place] % (Auto) % Eos % (Auto) % Baso % (Auto) % Neut # (Auto) (1.8-7.7) 10^3/u L Lymph # (Auto) (0.8-4.8) 10^3/u L [place] # (Auto) (0.2-0.9) 10^3/u L Eos # (Auto) (0.0-0.8) 10^3/u L Baso # (Auto) (0.0-0.1) 10^3/u L Nucleated RBC % (a uto) % Nucleated RBCs # /100WBC Sodium (136-145) mmol/L Potassium (3.5-5.1) mmol/L Chloride (98-107) mmol/L Carbon Dioxide (22-29) mmol/L Anion Gap (5-19) BUN (8-23) mg/dL Creatinine (0.5-0.9) mg/dL GFR Calculation (90-130) mL/min Glucose (65-115) mg/dL POC Glucose 182 H (70-110) mg/dL Calculated Osmolal ity (285-295) mOsm/k g Calcium (8.5-10.5) mg/dL Total Bilirubin (0.15-1.2) mg/dL AST (0-32) U/L ALT (0-33) U/L Alkaline Phosphata se (35-105) IU/L Creatine Kinase (26-192) U/L Total Protein (6.6-8.7) g/dL Albumin (3.5-5.2) g/dL Globulin (1.3-4.6) g/dL Lipase (13-60) U/L Urine Color (Yellow) Urine Appearance (CLEAR) Urine pH (5-7) Ur Specific Gravit y (1.005-1.030) Urine Protein (Negative) Urine Glucose (UA) (Normal) Urine Ketones (Negative) Urine Blood (Negative) Urine Nitrate (Negative) Urine Bilirubin (Negative) Urine Urobilinogen (Negative) mg/dL Ur Leukocyte Guillermina ase (Negative) Discharge Plan Discharge Patient Disposition: Home Clinical Impression: Diabetes mellitus, Nausea & vomiting Condition: Stable Prescriptions: New Zofran 4 mg tablet 4 mg PO Q6H PRN (Reason: nausea and vomiting) Qty: 14 RF: 0 Discontinued lisinopril 10 mg tablet 5 mg PO DAILY RF: 0 No Action gabapentin 300 mg capsule 300 mg PO DAILY RF: 0 omega-3 fatty acids [Fish Oil Concentrate] 1,000 mg capsule 1,000 mg PO BID RF: 0 tramadol 50 mg tablet 50 mg PO DAILY PRNRF: 0 hydrocodone-acetaminophen 10-325 mg tablet 1 tab PO Q4H PRNRF: 0 meloxicam 7.5 mg tablet 7.5 mg PO ONCE RF: 0 atorvastatin 80 mg tablet 80 mg PO ONCE RF: 0 topiramate [Topamax] 100 mg tablet 100 mg PO BID RF: 0 levocetirizine [Allergy Relief (levocetirizin)] 5 mg tablet 5 mg PO ONCE RF: 0 oxybutynin chloride 5 mg tablet extended release 24hr 10 mg PO ONCE RF: 0 metformin 500 mg tablet 1,000 mg PO BID RF: 0 aripiprazole [Abilify] 10 mg tablet 10 mg PO .evening Qty: 90 RF: 2 venlafaxine [Effexor XR] 150 mg capsule,extended release 24hr 150 mg PO QAM Qty: 90 RF: 2 venlafaxine [Effexor XR] 75 mg capsule,extended release 24hr 75 mg PO QAM Qty: 90 RF: 2 coenzyme Q10 100 mg capsule 100 mg PO DAILY RF: 0 dicyclomine 10 mg capsule 10 mg PO DAILY RF: 0 Discharge Orders: Discharge ED (Routine); Ordered 03/06/21 Ordered By: Vin Orellana Discharge Diet: Usual diet Discharge Activity: Increase activity as tolerated Patient Instructions: Opioid Safety Coding Level of Care Code ED Boat Tester for Gloria Fwd Exam Comprehensive
[2021-03-06 06:22] LABS: Basophils % 0.4 %; Hematocrit 40.8 % (37.0-47.0); Lymphocytes % 9.1 %; Mean Corpuscular HGB Conc 31.9 g/dL (30.0-36.0); Mean Corpuscular Hemoglobin 28.5 pg (28.0-34.0); Mean Corpuscular Volume 89.5 fl (81-99); Mean Platelet Volume 10.5 fL (7.4-10.4); Monocytes # 0.8 10^3/uL (0.2-0.9); Monocytes % 7.1 %; Neutrophils # 9.45 10^3/uL (1.8-7.7); Neutrophils % 83.1 %; Nucleated Red Blood Cells % 0 %; Platelet Count 234 10^3/cmm (130-400); Red Blood Count 4.56 10^6/uL (4.1-5.3); Red Cell Distribution Width 13.6 % (12.1-15.1); White Blood Count 11.4 10^3/uL (4.0-10.0)
[2021-03-06 06:38] LABS: Alanine Aminotransferase 28 U/L (0-33); Albumin Level 4.3 g/dL (3.5-5.2); Alkaline Phosphatase 94 IU/L (35-105); Anion Gap 21.5 (5-19); Aspartate Amino Transferase 22 U/L (0-32); Blood Urea Nitrogen 26 mg/dL (8-23); Calcium 8.8 mg/dL (8.5-10.5); Carbon Dioxide 17 mmol/L (22-29); Chloride 107 mmol/L (98-107); Creatine Phosphokinase 47 U/L (26-192); Globulin 2.8 g/dL (1.3-4.6); Glomerular Filtration Rate 63.2 mL/min (90-130); Glucose 268 mg/dL (65-115); Lipase 40 U/L (13-60); Osmolality Calculated 306 mOsm/kg (285-295); Potassium 4.5 mmol/L (3.5-5.1); Sodium 141 mmol/L (136-145); Total Bilirubin 0.3 mg/dL (0.15-1.2); Total Protein 7.1 g/dL (6.6-8.7)
[2021-03-06] MEDS: insulin regular-human 100 units/1 mL 5 UNIT IVP (07:13)
[2021-03-06 07:18] VITALS: PULSE 106; RESP 14; O2SAT 98
[2021-03-06 07:22] LABS: Add Urine Microscopic? NO; Charge for UA Resulting for Rev
[2021-03-06 07:41] LABS: Bilirubin Urine Neg (Negative); Blood Urine Neg (Negative); Glucose Urine UA Trace (Normal); Ketones Urine Negative (Negative); Nitrate Urine Negative (Negative); Protein Urine Neg (Negative); Urine Appearance Clear (CLEAR); Urine Color Yellow (Yellow); pH Urine 5 (5-7)
[2021-03-06 07:42] LABS: Leukocyte Esterase Urine Negative (Negative); Urobilinogen Urine Norm (Negative)
[2021-03-06 07:57] LABS: Glucose Point of Care 182 mg/dL (70-110)
[2021-03-06 08:39] VITALS: BP 116/68; PULSE 103; RESP 19; O2SAT 99
== END 2021-03-06 08:44 | disposition home or self-care (01) ==
PROVIDERS: Emergency Provider Family Medicine
DX: E11.40 Type 2 diabetes mellitus with diabetic neuropathy, unspecified (principal); R11.2 Nausea with vomiting, unspecified; Z79.84 Long term (current) use of oral hypoglycemic drugs; Z87.891 Personal history of nicotine dependence
CPT/HCPCS: 36416; 80053; 81003; 82550; 82962; 83690; 85025; 93005; 96361; 96374; 96375; 99284; J1815; J2405; J7030

== ENCOUNTER 2021-03-31 10:17 | Outpatient (CLI) | payer MEDICARE, MEDICAID, SELFPAY ==
--- NOTE | 2021-03-31 10:24 | MM_ITS ---
WS: [id number] Bilateral screening digital mammogram, 03/31/2021 Clinical Data: SCREENING Comparison: 04/04/2020, 03/05/2020, 02/15/2019, 02/13/2019, 01/26/2018, 01/06/2017, 06/12/2016, 09/14/2012, 07/04/2010, 05/31/2008. Findings: The breast parenchymal pattern shows fibroglandular tissue No spiculated masses or clustered calcific ations are seen. There are no secondary signs of carcinoma. There are small scattered benign calcific ations throughout both breasts. MM/[place] [id number] Impression: 1. Negative bilateral mammogram unchanged. 2. Recommend annual screening mammograms. BIRADS: 1-Negative FOLLOW UP: 1 Year Follow-up The CAD credit checker was used.
== END 2021-03-31 10:18 | disposition home or self-care (01) ==
LOC: RADSHAW 10:22
PROVIDERS: PCP Nurse Practitioner Family; Visit Provider Nurse Practitioner Family
DX: Z12.31 Encounter for screening mammogram for malignant neoplasm of breast (principal)
CPT/HCPCS: 77067

== ENCOUNTER 2021-04-01 09:07 | Outpatient (CLI) | payer MEDICARE, MEDICAID, SELFPAY ==
--- NOTE | 2021-04-01 09:21 | MR_ITS ---
WS: [id number] MRI RIGHT SHOULDER HISTORY: SHOULDER PAIN RIGHT/ARM PAIN,RIGHT COMPARISON: Radiograph 10/11/2020 TECHNIQUE: Multiplanar sequences of the shoulder joint are submitted. Moderate osteoarthritis at the AC joint. Bone and soft tissue hypertrophy with fluid along the AC lig ament and in the subacromial and subdeltoid bursa. Moderate impingement upon the supraspinatus tendon and muscle. Mild subacromial impingement. Subacromial impingement is due to a 5 mm osteophyte. Along the undersurface of the acromion causing a significant encroachment upon the anterior supraspinatus tendon and muscle. Os acromion. Biceps tendon in normal position. There is a large amount of increased T2 signal in the distal 3 to 4 cm of the supraspinatus tendon. L oss of the normal signal of the tendon. No retraction but there is mild atrophy of the supraspinatus. There is an insertion site tear and fluid extending interstitial along the supraspinatus tendon. The re is also superimposed tendinopathy. Significant tendinopathy of the infraspinatus tendon but no def inite tear is identified. There may be a very slight insertion site tear at the overlapping of the in terdigitations between the supraspinatus and infraspinatus tendons. No muscle atrophy or edema of the infraspinatus. Increased signal and thickening within the distal subscapularis tendon from tendinopa thy. There is narrowing of the coracohumeral interval by osteophytes. No labral tear. No fracture. MR/MR shoulder RT wo con* [id number] IMPRESSION: 1. Moderate AC joint hypertrophy with moderate impingement upon the supraspina tus muscle and tendon. 2. 5 mm osteophyte from the distal undersurface of the acromion causing subacr omial impingement. 3. Significant tendinopathy in the distal supraspinatus tendon. There is an in sertion site tear with interstitial fluid extending along the tendon. 4. Mild atrophy of the supraspinatus muscle. 5. Insertion site tear suspected between the interdigitations between the infr aspinatus and supraspinatus tendons. No atrophy of the infraspinatus muscle.
== END 2021-04-01 09:08 | disposition home or self-care (01) ==
LOC: RADWPI 09:10
PROVIDERS: PCP Nurse Practitioner Family; Visit Provider Nurse Practitioner Family
DX: M25.511 Pain in right shoulder (principal); M79.601 Pain in right arm; M25.711 Osteophyte, right shoulder; M62.511 Muscle wasting and atrophy, not elsewhere classified, right shoulder
CPT/HCPCS: 73221

== ENCOUNTER 2021-05-19 12:07 | Outpatient (CLI) | payer MEDICARE, MEDICAID, SELFPAY ==
--- NOTE | 2021-05-19 12:15 | XRR_ITS ---
PROCEDURE INFORMATION: Exam: XR Right Hip Exam date and time: 05/19/2021 12:15 PM Age: 65 years old Clinical indication: Hip pain; Right hip; Patient HX: No known injury pain to RT hip x 2-3 months; Additional info: R hip pain TECHNIQUE: Imaging protocol: XR Right hip. Views: 1 view hip with pelvis when performed. COMPARISON: CR XR KUB portable [id number] 10/16/2020 11:16 AM FINDINGS: Bones/joints: No evidence of acute or aggressive osseous lesion. The femoral head is in normal position. Minimal joint space narrowing. Soft tissues: Unremarkable. XR/XR hip RT 2-3V wo/w pel* [id number] IMPRESSION: No acute radiographic findings. Radiation Dose CTDIVOL = (mGy): DLP = (mGy-cm)
== END 2021-05-19 12:08 | disposition home or self-care (01) ==
LOC: RAD 12:11
PROVIDERS: PCP Nurse Practitioner Family; Visit Provider Nurse Practitioner Family
DX: M25.551 Pain in right hip (principal)
CPT/HCPCS: 73502

== ENCOUNTER → 2021-05-29 08:47 | Outpatient (BNVA) | payer MEDICARE, MEDICAID, SELFPAY | PROVIDERS: PCP Nurse Practitioner Family; Referring Provider Nurse Practitioner Family; Visit Provider Nurse Practitioner Family | DX: N39.0 Urinary tract infection, site not specified (principal) | CPT/HCPCS: 81003 ==

== ENCOUNTER → 2021-06-09 07:37 | Outpatient (BNVA) | payer MEDICARE, MEDICAID, SELFPAY | PROVIDERS: PCP Nurse Practitioner Family; Visit Provider Nurse Practitioner Psychiatric/Mental Health | DX: F33.41 Major depressive disorder, recurrent, in partial remission (principal); F41.8 Other specified anxiety disorders; F43.12 Post-traumatic stress disorder, chronic | CPT/HCPCS: 99214 ==

== ENCOUNTER 2021-07-08 20:00 | Outpatient (CLI) | payer MEDICARE, MEDICAID, SELFPAY | END 2021-07-08 20:01 | disposition home or self-care (01) | LOC: SLEEP 07-09 05:46 | PROVIDERS: PCP Nurse Practitioner Family; Visit Provider Nurse Practitioner Family | DX: G47.33 Obstructive sleep apnea (adult) (pediatric) (principal) | CPT/HCPCS: 95811 ==

== ENCOUNTER 2021-07-16 12:25 | Outpatient (CLI) | payer MEDICARE, MEDICAID, SELFPAY ==
--- NOTE | 2021-07-16 | MR_ITS ---
WS: [id number] MRI RIGHT HIP non- CONTRAST. COMPARISON: Radiograph 05/19/2021. Multiplanar, multisequence imaging is performed without contrast. Moderate narrowing of the RIGHT hip joint. Moderate subchondral cysts along the superior acetabulum w ith loss of the normal joint. No subluxation or fracture. There is no marrow edema or significant katy nt effusion. No loose body is identified. There is mild acetabular osteophytic ridging. No labral tea r is identified. No muscle edema or atrophy. Very mild joint space narrowing and arthritis involving the LEFT hip. Atrophic uterus. No free fluid or adenopathy visualized within the pelvis. MR/MR hip RT wo con* [id number] IMPRESSION: 1. Moderate osteoarthritis at the RIGHT hip. Moderate-sized subchondral cysts along the superior acetabulum. 2. No marrow edema or fracture.
== END 2021-07-16 12:26 | disposition home or self-care (01) ==
LOC: RADSHAW 12:31
PROVIDERS: PCP Nurse Practitioner Family; Visit Provider Nurse Practitioner Family
DX: M16.11 Unilateral primary osteoarthritis, right hip (principal)
CPT/HCPCS: 73721

== ENCOUNTER → 2021-10-02 10:48 | Outpatient (BNVA) | payer MEDICARE, MEDICAID, SELFPAY | PROVIDERS: PCP Nurse Practitioner Family; Visit Provider Nurse Practitioner Psychiatric/Mental Health | DX: F33.41 Major depressive disorder, recurrent, in partial remission (principal); F41.8 Other specified anxiety disorders; F43.12 Post-traumatic stress disorder, chronic | CPT/HCPCS: 99214 ==

== ENCOUNTER → 2021-12-24 12:56 | Outpatient (BNVA) | payer MEDICARE, MEDICAID, SELFPAY | PROVIDERS: PCP Nurse Practitioner Family; Visit Provider Nurse Practitioner Psychiatric/Mental Health | DX: F33.41 Major depressive disorder, recurrent, in partial remission (principal); F41.8 Other specified anxiety disorders; F43.12 Post-traumatic stress disorder, chronic | CPT/HCPCS: 99214 ==

== ENCOUNTER → 2022-01-12 12:06 | Outpatient (BNVA) | payer MEDICARE, MEDICAID, SELFPAY | PROVIDERS: PCP Nurse Practitioner Family; Visit Provider Urology | DX: N39.0 Urinary tract infection, site not specified (principal); N39.46 Mixed incontinence | CPT/HCPCS: 51798; 81003; 99213 ==

== ENCOUNTER 2022-04-03 10:56 | Outpatient (CLI) | payer MEDICARE, MEDICAID, SELFPAY ==
--- NOTE | 2022-04-03 11:05 | MM_ITS ---
WS: [id number] SCREENING DIGITAL TOMOSYNTHESIS MAMMOGRAM WITH CAD HISTORY: SCREENING COMPARISON: 03/31/2021 and 03/05/2020 Bilateral CC and MLO with tomosynthesis views submitted. Synthetic mammography reviewed. Computer aid ed detection analyzed. Breast composition: There are scattered areas of fibroglandular density. No suspicious masses, microc alcifications or architectural distortion. Benign calcifications in each breast. Stable nodule centra l RIGHT breast. MM/[place] [id number] IMPRESSION: BI-RADS: 2-Benign FOLLOW UP: 1 Year Follow-up
== END 2022-04-03 10:57 | disposition home or self-care (01) ==
LOC: RAD 10:56
PROVIDERS: PCP Family Medicine; Visit Provider Family Medicine
DX: Z12.31 Encounter for screening mammogram for malignant neoplasm of breast (principal)
CPT/HCPCS: 77063; 77067

== ENCOUNTER → 2022-05-15 15:01 | Outpatient (BNVA) | payer MEDICARE, MEDICAID, SELFPAY | PROVIDERS: PCP Family Medicine; Visit Provider Emergency Medicine | DX: J02.9 Acute pharyngitis, unspecified (principal); J02.0 Streptococcal pharyngitis | CPT/HCPCS: 87071; 87880 ==

== ENCOUNTER → 2022-06-09 08:34 | Outpatient (BNVA) | payer MEDICARE, MEDICAID, SELFPAY | PROVIDERS: PCP Family Medicine; Visit Provider Family Medicine | DX: E11.9 Type 2 diabetes mellitus without complications (principal); I10 Essential (primary) hypertension | CPT/HCPCS: 80053; 80061; 83036 ==

== ENCOUNTER 2022-06-12 11:20 | Outpatient (CLI) | payer MEDICARE, MEDICAID, SELFPAY ==
--- NOTE | 2022-06-12 11:32 | MR_ITS ---
WS: [id number] MRI LUMBAR SPINE WITH CONTRAST TECHNIQUE: Sagittal T1, T2 and STIR imaging. Axial T1 and T2 imaging. Post gadolinium imaging was obt ained. CLINICAL INFORMATION: FAILED BACK SYNDROME/LUMBOSACRAL RADICULOPATHY COMPARISON: MRI January 16, 2019 FINDINGS: Mild lumbar curve. No acute compression. Disc desiccation worse at L4-L5 with presumed laminectomies microdiscectomy at this level. Chronic anterior wedging in the lower thoracic spine. No abnormal gado linium enhancement. Prior postoperative changes with normal postoperative enhancement L1-L2: No significant disc bulging. Moderate facet arthropathy. Slight narrowing of the subarticular recess. Spinal canal and foramen are patent. L2-L3: Mild annular bulging with slight effacement of the ventral thecal sac. Moderate facet arthropa thy. Spinal canal and foramen are patent. L3-L4: Mild disc bulging with osteophytic ridging. Mild central canal stenosis. Slight impingement on the LEFT subarticular recess. Moderate facet arthropathy. Small RIGHT foraminal protrusion with mild RIGHT foraminal narrowing and slight impingement on the exiting RIGHT L3 nerve root. L4-L5: Disc osteophyte complex with endplate ridging. Mild central canal stenosis. Slight impingement traversing L5 nerve roots bilaterally. Moderate facet arthropathy with small facet effusions consist ent with synovitis. Moderate LEFT foraminal narrowing impinges the exiting LEFT L4 nerve root. L5-S1: Disc osteophyte complex with endplate ridging eccentric to the RIGHT. Severe RIGHT and mild LE FT foraminal narrowing. Moderate facet arthropathy. Spinal canal remains patent. Small bilateral renal cysts LEFT greater than RIGHT. MR/MR lumbar spine wo/w con [id number] IMPRESSION: 1. Mild lumbar curve. No acute compression. Anterior wedging lower thoracic sp ine at T10 and T11 appears progressed compared to 2000 however no acute appeari ng compression fractures. 2. Presumed prior microdiscectomy L4-L5. Central canal stenosis at this level has progressed with mild central canal stenosis and impingement traversing L5 n erve roots bilaterally. 3. Moderate LEFT L4-L5 foraminal narrowing impinges the exiting LEFT L4 nerve root slightly progressed. 4. Severe RIGHT L5-S1 foraminal narrowing impinges the exiting RIGHT L5 nerve root appears slightly progressed. 5. Mild central canal stenosis L2-L3 progressed compared to previous. 6. Mild central canal stenosis L3-L4 has progressed with impingement traversin g L4 nerve roots bilaterally. 7. RIGHT foraminal protrusion L3-L4 impinges the exiting RIGHT L3 nerve root w ith mild RIGHT foraminal narrowing. This is similar to previous.
[2022-06-12] MEDS: gadobenate dimeglumine 20 mL vial IV (12:25)
== END 2022-06-12 11:21 | disposition home or self-care (01) ==
LOC: RAD 11:25
PROVIDERS: PCP Family Medicine; Visit Provider General Practice
DX: M96.1 Postlaminectomy syndrome, not elsewhere classified (principal); M54.17 Radiculopathy, lumbosacral region
CPT/HCPCS: 72158; A9577

== ENCOUNTER → 2022-07-13 12:49 | Outpatient (BNVA) | payer MEDICARE, MEDICAID, SELFPAY | PROVIDERS: PCP Family Medicine; Visit Provider Urology | DX: N39.0 Urinary tract infection, site not specified (principal); N39.46 Mixed incontinence | CPT/HCPCS: 81003; 99213 ==

== ENCOUNTER 2022-09-01 20:00 | Outpatient (CLI) | payer MEDICARE, MEDICAID, SELFPAY | END 2022-09-01 20:01 | disposition home or self-care (01) | LOC: SLEEP 09-02 08:06 | PROVIDERS: PCP Family Medicine; Visit Provider Specialist | DX: G47.33 Obstructive sleep apnea (adult) (pediatric) (principal) | CPT/HCPCS: 95810 ==

== ENCOUNTER 2022-09-14 13:47 | Outpatient (CLI) | payer MEDICARE, MEDICAID, SELFPAY ==
--- NOTE | 2022-09-14 14:29 | ECG_ITS ---
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 Measurements Intervals [place] Rate: 97 P: -84 [place]: 100 QRS: -38 QRSD: 82 T: 36 QT: 333 QTc: 424 Interpretive Statements JUNCTIONAL RHYTHM LEFT AXIS DEVIATION [QRS AXIS < -30] PATTERN CONSISTENT WITH PULMONARY DISEASE Compared to ECG 03/06/2021 06:42:43 Junctional rhythm now present Left-axis deviation now present Supraventricular rhythm no longer present Electronically Signed On 09-15-2022 23:13:22 CDT by Miley Knox M.D. [id number]
[2022-09-14 14:38] LABS: Basophils % 0.7 %; Eosinophils # 0.1 10^3/uL (0.0-0.8); Eosinophils % 0.9 %; Hematocrit 50.1 % (37.0-47.0); Hemoglobin 16.1 g/dL (11.5-15.3); Lymphocytes # 1.8 10^3/uL (0.8-4.8); Lymphocytes % 30.8 %; Mean Corpuscular HGB Conc 32.1 g/dL (30.0-36.0); Mean Corpuscular Hemoglobin 27.8 pg (28.0-34.0); Mean Corpuscular Volume 86.5 fl (81-99); Mean Platelet Volume 10.9 fL (7.4-10.4); Monocytes # 0.4 10^3/uL (0.2-0.9); Monocytes % 6.7 %; Neutrophils # 3.56 10^3/uL (1.8-7.7); Neutrophils % 60.7 %; Nucleated Red Blood Cells % 0 %; Platelet Count 226 10^3/cmm (130-400); Red Blood Count 5.79 10^6/uL (4.1-5.3); Red Cell Distribution Width 13.2 % (12.1-15.1); White Blood Count 5.9 10^3/uL (4.0-10.0)
[2022-09-14 14:56] LABS: Alanine Aminotransferase 21 U/L (0-33); Albumin Level 4.6 g/dL (3.5-5.2); Alkaline Phosphatase 110 U/L (35-105); Anion Gap 17.6 (5-19); Aspartate Amino Transferase 16 U/L (0-32); Blood Urea Nitrogen 32 mg/dL (8-23); Carbon Dioxide 25 mmol/L (22-29); Chloride 101 mmol/L (98-107); Globulin 2.5 g/dL (1.3-4.6); Glomerular Filtration Rate 37.7 mL/min (90-130); Glucose 293 mg/dL (65-115); Osmolality Calculated 306 mOsm/kg (285-295); Potassium 4.6 mmol/L (3.5-5.1); Sodium 139 mmol/L (136-145); Total Bilirubin 0.3 mg/dL (0.15-1.2); Total Protein 7.1 g/dL (6.6-8.7)
== END 2022-09-14 13:48 | disposition home or self-care (01) ==
PROVIDERS: PCP Family Medicine; Visit Provider Family Medicine
DX: E11.9 Type 2 diabetes mellitus without complications (principal); I10 Essential (primary) hypertension
CPT/HCPCS: 80053; 85025; 93005

== ENCOUNTER → 2022-09-15 08:46 | Outpatient (BNVA) | payer MEDICARE, MEDICAID, SELFPAY | PROVIDERS: PCP Family Medicine; Visit Provider Family Medicine | DX: I10 Essential (primary) hypertension (principal); E11.9 Type 2 diabetes mellitus without complications; R42 Dizziness and giddiness | CPT/HCPCS: 80053; 80061; 83036 ==

== ENCOUNTER → 2022-12-17 09:46 | Outpatient (BNVA) | payer MEDICARE, MEDICAID, SELFPAY | PROVIDERS: PCP Family Medicine; Visit Provider Family Medicine | DX: I10 Essential (primary) hypertension (principal); E11.9 Type 2 diabetes mellitus without complications | CPT/HCPCS: 80053; 80061; 83036 ==

== ENCOUNTER → 2023-03-10 14:22 | Outpatient (BNVA) | payer MEDICARE, SELFPAY | PROVIDERS: PCP Family Medicine; Visit Provider Family Medicine | DX: E11.9 Type 2 diabetes mellitus without complications; I10 Essential (primary) hypertension | CPT/HCPCS: 80053; 80061; 83036 ==

== ENCOUNTER 2023-04-05 10:02 | Outpatient (CLI) | payer MEDICARE, MEDICAID, SELFPAY ==
--- NOTE | 2023-04-05 10:10 | MM_ITS ---
WS: [id number] BILATERAL SCREENING DIGITAL TOMOSYNTHESIS MAMMOGRAM WITH CAD HISTORY: screening COMPARISON: 04/03/2022 and 03/31/2021 Bilateral CC and MLO views with tomosynthesis and synthetic mammography submitted. Computer aided det ection analyzed. Breast composition: There are scattered areas of fibroglandular density. No suspicious masses, microc alcifications or architectural distortion. Benign calcifications. Stable nodules which may be lymph n odes in the central RIGHT breast. IMPRESSION: MM/[place] [id number] BI-RADS: 2-Benign FOLLOW UP: 1 Year Follow-up
== END 2023-04-05 10:03 | disposition home or self-care (01) ==
PROVIDERS: PCP Family Medicine; Visit Provider Family Medicine
DX: Z12.31 Encounter for screening mammogram for malignant neoplasm of breast
CPT/HCPCS: 77063; 77067

== ENCOUNTER 2023-04-11 18:26 | Emergency (ER) | payer MEDICARE, MEDICAID, SELFPAY ==
[2023-04-11 18:28] VITALS: BP 168/95; PULSE 121; RESP 18; TEMP 36.9; O2SAT 96; BMI 35.4
[2023-04-11 20:51] LABS: SARS Covid-2 Antigen negative (Negative)
[2023-04-11] MEDS: ketorolac 60 mg/2 mL INJ IM (20:58)
[2023-04-11] MEDS: predniSONE 20 mg Tablet 60 MG PO (20:58)
--- NOTE | 2023-04-11 21:06 | ED_ITS ---
HPI - URI/Sore Throat General: Chief Complaint: Upper Respiratory Infection Stated Complaint: sore throat/fever Time Seen by Provider: 04/11/23 19:40 Source: patient Mode of arrival: ambulatory Limitations: no limitations History of Present Illness: Patient presents to the emergency department today for evaluation treatment of complaints of sore throat. Patient states she woke up this morning with sore throat. She was seen at another facility today and tested negative for strep. However, she states she did not receive any medication from them and states they told her it was due to her allergies. Patient has chronic year-long allergies for which she takes medication daily but states she does not think this is due to her allergies. She has not had fever. She denies cough. No ear pain. Review of Systems General: Reports: 10 or more systems reviewed and unremarkable except in HPI and below PFSH ED PFSH: Medical History Chronic back pain Chronic post-traumatic stress disorder High blood pressure High cholesterol History of deviated nasal septum History of fibromyalgia History of skull fracture Hypertension Major depressive disorder, recurrent episode, in partial remission with anxious distress Mixed stress and urge urinary incontinence Neuropathy Obstructive sleep apnea Osteoarthritis Recurrent UTI Type 2 diabetes mellitus Surgical History History of bilateral knee replacement History of carpal tunnel surgery History of cervical spinal surgery History of thoracic surgery Hx of rotator cuff surgery Family History Son Suicide Father , AT 55 Heart disease Liver disease Mother , AT AGE 93 Natural Other Diabetes Hypertension Psychiatric illness Social History Smoking and tobacco/nicotine status: former use of tobacco/nicotine Alcohol intake: current Alcohol intake frequency: holidays/special occasions only Substance/Drug Use: never Marital status: Current occupational status: disabled Physical Exam Const: COMMON NORMALS: no acute distress, patient oriented x3 and alert HENMT: OTHER: TMs are translucent bilaterally without erythema or bulging. Pharynx is mildly erythematous but no signs of exudate or petechial rash. Eye: COMMON NORMALS: Equal, round and reactive pupils present, EOMs intact bilaterally and conjunctivae normal CONJUNCTIVA: Yes conjunctivae normal PUPIL: Yes Equal, round and reactive pupils present Neck/C-Spine: COMMON NORMALS: no JVD Lymph: LYMPHATIC: no lymphadenopathy noted Resp: COMMON NORMALS: normal respiratory effort, No retractions and No use of accessory muscles Cardio: COMMON NORMALS: no JVD and regular rate RATE: regular rate : COMMON NORMALS: Yes no CVA tenderness BLADDER/KIDNEY EXAM: Yes no CVA tenderness Back/Pelvis: COMMON NORMALS: no CVA tenderness, thoracic and lumbar spine normal to inspection and thoraco-lumbar ROM normal Extremity: COMMON NORMALS: normal to inspection, full ROM and no pedal edema Neuro: COMMON NORMALS: patient oriented x3 SENSORIUM/ORIENTATION: Yes alert Skin: COMMON NORMALS: no rashes or lesions noted and turgor normal GENERAL SKIN EXAM: no rashes or lesions noted and turgor normal Course Vital Signs: Vital signs: Vital Signs Temperature 98.4 F 04/11/23 18:28 Pulse Rate 121 H 04/11/23 18:28 Respiratory Rate 18 04/11/23 18:28 Blood Pressure 168/95 04/11/23 18:28 Pulse Oximetry 96 04/11/23 18:28 Oxygen Delivery Me thod Room Air 04/11/23 18:28 MDM - URI/Sore Throat Medical Decision Making Chart review shows patient had a negative strep test today and indicates that there is a culture pending. Patient did wish to have a COVID test performed which was negative here in the emergency department. Pharynx was erythematous but no signs of exudate or petechial rash. We treated symptomatically here in the emergency department as well as provided a prescription to be picked up and continued in the morning again, to help with symptomatic discomfort of the throat. She was given strict return precautions for change or worsening in condition including difficulty swallowing or breathing. Patient verbalized understanding and agreement to treatment plan. Differential Diagnosis Likely upper respiratory infection, viral infection and pharyngitis; Unlikely croup, otitis media, sinusitis, bronchitis or influenza Lab Data Laboratory Results SARS-CoV-2 Ag (Rapid) negative (Negative) 04/11/23 20:08 No radiology studies performed this visit Discharge Plan Discharge Patient Disposition: Home Clinical Impression: Pharyngitis Condition: Stable Prescriptions: New prednisone 20 mg tablet 20 mg PO BID 5 Days Qty: 10 0RF No Action gabapentin 300 mg capsule 300 mg PO DAILY hydrocodone-acetaminophen 10-325 mg tablet 1 tab PO Q4H PRN levocetirizine [Allergy Relief (levocetirizin)] 5 mg tablet 5 mg PO ONCE omega-3 fatty acids [Fish Oil Concentrate] 1,000 mg capsule 2,000 mg PO BID Rx Instructions: 2400MG BID dicyclomine 10 mg capsule 10 mg PO QID Jardiance 25 mg tablet 25 mg PO DAILY Carlos Zheng U-300 Insulin 300 unit/mL (1.5 mL) insulin pen 35 unit SUBCUT BID Qty: 4.5 11RF famotidine 20 mg tablet 40 mg PO BID Gemtesa 75 mg tablet 75 mg PO DAILY aripiprazole [Abilify] 10 mg tablet 10 mg PO .evening Qty: 90 2RF Rx Instructions: Take one tablet in evening venlafaxine [Effexor XR] 150 mg capsule,extended release 24hr 150 mg PO QAM Qty: 90 2RF Rx Instructions: Take one capsule every morning atorvastatin 80 mg tablet 80 mg PO DAILY Qty: 90 3RF Victoza 3-Robert 0.6 mg/0.1 mL (18 mg/3 mL) pen injector See Rx Instructions .ROUTE .COMPLEX Qty: 27 3RF Dose Instruction: INJECT SUBCUTANEOUSLY 1.8 MG DAILY Rx Instructions: INJECT SUBCUTANEOUSLY 1.8 MG DAILY (DME) Comfort EZ Pen [place] 33 gauge x 5/16 needle See Rx Instructions .Route Qty: 100 3RF Rx Instructions: As directed Discharge Orders: Discharge ED (Routine); Ordered 04/11/23 Ordered By: Alva Barber Referrals: Jt Ruiz MD [Primary Care Provider] - Discharge Diet: Usual diet Discharge Activity: Increase activity as tolerated Patient Instructions: Pharyngitis (ED) Activity Restrictions/Additional Instructions: After referencing the note from earlier today, it does appear he had a negative strep test but, they are using your throat swab for culture over the next 24 to 48 hours to look for a variant strain of strep. They indicated that if for any reason these cultures are positive you will be notified. Your COVID test today here in the emergency department is negative. We are treating your sore throat with medication here in the emergency department tonight with a prescription to be filled first thing in the morning and continued as prescribed. You may still continue your typical [id number] medications for your allergies in addition to warm salt water gargles, numbing throat lozenges and sprays, and soft/cold foods for the next few days as well. If you develop inability to swallow, any difficulty breathing, or develop a rash she should be seen and reevaluated. Coding Level of Care Code ED Deputy Sheriff Generalist/Bailiff for Gloria Valdez
[2023-04-11 21:13] VITALS: BP 168/95; PULSE 121; RESP 18; TEMP 36.9; O2SAT 96
== END 2023-04-11 21:15 | disposition home or self-care (01) ==
PROVIDERS: Emergency Provider Physician Assistant; PCP Family Medicine
DX: J02.9 Acute pharyngitis, unspecified (principal); Z79.4 Long term (current) use of insulin; Z11.52 Encounter for screening for COVID-19; Z87.891 Personal history of nicotine dependence; I10 Essential (primary) hypertension; E11.9 Type 2 diabetes mellitus without complications
CPT/HCPCS: 87071; 87426; 87880; 96372; 99284; J1885; J7512

== ENCOUNTER → 2023-06-14 10:19 | Outpatient (BNVA) | payer MEDICARE, MEDICAID, SELFPAY | PROVIDERS: PCP Family Medicine; Visit Provider Family Medicine | DX: E10.9 Type 1 diabetes mellitus without complications (principal); R25.1 Tremor, unspecified; R42 Dizziness and giddiness; I10 Essential (primary) hypertension | CPT/HCPCS: 80053; 80061; 83036; 85025 ==

== ENCOUNTER 2023-08-31 09:31 | Outpatient (CLI) | payer MEDICARE, MEDICAID, SELFPAY ==
--- NOTE | 2023-08-31 09:39 | XRR_ITS ---
PROCEDURE INFORMATION: Exam: XR Chest Exam date and time: 08/31/2023 9:53 AM Age: 68 years old Clinical indication: Shortness of breath; Additional info: SOB with exertion, worse after meals TECHNIQUE: Imaging protocol: Radiologic exam of the chest. Views: 2 views. COMPARISON: MR shoulder RT wo con* [id number] 04/01/2021 9:37 AM FINDINGS: Lungs: No consolidation. Pleural spaces: No pleural effusion. No pneumothorax. Heart/Mediastinum: No cardiomegaly. Vagal nerve stimulator. Bones/joints: No acute findings. XR/XR chest 2V* [id number] IMPRESSION: No acute findings.
== END 2023-08-31 09:32 | disposition home or self-care (01) ==
LOC: RAD 09:33
PROVIDERS: PCP Family Medicine; Visit Provider Clinical Nurse Specialist Adult Health
DX: R06.02 Shortness of breath (principal)
CPT/HCPCS: 71046

== ENCOUNTER 2023-09-20 12:11 | Outpatient (CLI) | payer MEDICARE, MEDICAID, SELFPAY ==
--- NOTE | 2023-09-20 | ECG_ITS ---
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 Interpretive Statements NAME OF STUDY: TREADMILL STRESS TEST INDICATION: [SOB WITH EXERTION, ] EXERCISE DATA: The patient was exercised by Thang protocol. Baseline heart rate was 87 beats per minute. Baseline blood pressure was 159/86 millimeters of mercury. Maximal predicted heart rate was 154 beats per minute. Maximum heart rate achieved was 133, which was 86% of the maximum predicted heart rate. Maximum blood pressure was 203/73 millimeters of mercury. Total exercise time was 2 minutes and 33 seconds. Maximum METs achieved was 4.6. The reason for ending the test was completion of protocol. The patient complained of shortness of breath during the stress test, which then resolved at the end of the test. ELECTROCARDIOGRAM: BASELINE: Showed ectopic atrial rhythm, normal axis, no significant ST-T changes at the baseline noted. [] EXERCISE: At the peak exercise level, [] No significant ST-T changes suggestive of ischemia noted. [] RECOVERY: During the recovery period, heart rate dropped appropriately. No significant ST-T changes in the recovery suggestive of ischemia noted. [] CONCLUSION: 1. Exercise capacity is poor 2. Heart rate response was appropriate. 3. Blood pressure response was hypertensive 4. Symptoms not suggestive of ischemia. 5. Stress test does not show ischemia Electronically Signed On 09-27-2023 12:16:58 CDT by Figueroa Carrillo M.D. [id number]
[2023-09-20 12:20] VITALS: BMI 36.6
[2023-09-20 12:50] VITALS: BP 191/85; PULSE 97
== END 2023-09-20 12:12 | disposition home or self-care (01) ==
LOC: CDL 12:12
PROVIDERS: PCP Family Medicine; Visit Provider Clinical Nurse Specialist Adult Health
DX: R06.02 Shortness of breath (principal)
CPT/HCPCS: 93017

== ENCOUNTER → 2023-09-27 08:48 | Outpatient (BNVA) | payer MEDICARE, MEDICAID, SELFPAY | PROVIDERS: PCP Family Medicine; Visit Provider Family Medicine | DX: E11.22 Type 2 diabetes mellitus with diabetic chronic kidney disease (principal); I12.9 Hypertensive chronic kidney disease with stage 1 through stage 4 chronic kidney disease, or unspecified chronic kidney disease; N18.9 Chronic kidney disease, unspecified; R73.03 Prediabetes; F33.41 Major depressive disorder, recurrent, in partial remission; F43.12 Post-traumatic stress disorder, chronic; F41.8 Other specified anxiety disorders | CPT/HCPCS: 80053; 80061; 83036; 85025 ==

== ENCOUNTER → 2023-12-18 18:11 | Outpatient (BNVA) | payer MEDICARE, MEDICAID, SELFPAY | PROVIDERS: PCP Family Medicine; Visit Provider Emergency Medicine | DX: R30.0 Dysuria (principal) | CPT/HCPCS: 81000 ==

== ENCOUNTER → 2023-12-29 09:41 | Outpatient (BNVA) | payer MEDICARE, MEDICAID, SELFPAY | PROVIDERS: PCP Family Medicine; Visit Provider Family Medicine | DX: E11.22 Type 2 diabetes mellitus with diabetic chronic kidney disease (principal); I11.0 Hypertensive heart disease with heart failure; N18.9 Chronic kidney disease, unspecified; R73.03 Prediabetes; F33.41 Major depressive disorder, recurrent, in partial remission; F41.8 Other specified anxiety disorders; E11.9 Type 2 diabetes mellitus without complications; F43.12 Post-traumatic stress disorder, chronic | CPT/HCPCS: 80053; 80061; 83036; 85025 ==

== ENCOUNTER 2024-01-20 13:41 | Emergency (ER) | payer MEDICARE, MEDICAID, SELFPAY ==
[2024-01-20 13:42] VITALS: BP 138/84; PULSE 108; RESP 16; TEMP 36.9; O2SAT 96
--- NOTE | 2024-01-20 13:54 | W.ED.GENADLT ---
HPI - General Adult General: Chief complaint: General Medical Stated complaint: throat problems Time Seen by Provider: 01/20/24 13:53 History of Present Illness: 68-year-old female comes in today with complaints of throat discomfort. Patient reports for the last 2 weeks she has felt like symptoms been in the back of her throat that when she swallows she gags. Patient appears nontoxic. Patient appears in no pain. Patient has a inspire device to help with sleep apnea. Review of Systems General: Reports: 10 or more systems reviewed and unremarkable except in HPI and below PFSH ED PFSH: Medical History Chronic back pain Hypertension Mixed stress and urge urinary incontinence History of deviated nasal septum Recurrent UTI Major depressive disorder, recurrent episode, in partial remission with anxious distress History of skull fracture Obstructive sleep apnea Chronic post-traumatic stress disorder Osteoarthritis High blood pressure High cholesterol Type 2 diabetes mellitus Neuropathy History of fibromyalgia Surgical History History of thoracic surgery History of cervical spinal surgery History of bilateral knee replacement History of carpal tunnel surgery Hx of rotator cuff surgery Family History Son Suicide Father , AT 55 Heart disease Liver disease Mother , AT AGE 93 Natural Other Diabetes Hypertension Psychiatric illness Social History Smoking and tobacco/nicotine status: unknown if used tobacco/nicotine Alcohol intake: current Alcohol intake frequency: holidays/special occasions only Substance/Drug Use: never Marital status: Current occupational status: disabled Physical Exam Const: COMMON NORMALS: alert HENMT: COMMON NORMALS: normocephalic HEAD & SCALP: normocephalic THROAT: posterior oropharynx abnormal cobblestoning Neck/C-Spine: COMMON NORMALS: full ROM Chest: COMMONS NORMALS: normal inspection of the chest Resp: COMMON NORMALS: normal respiratory effort and clear to auscultation bilaterally AUSCULTATION: clear to auscultation bilaterally Cardio: COMMON NORMALS: regular rate RATE: regular rate GI: COMMON NORMALS: non-tender : COMMON NORMALS: Yes no CVA tenderness BLADDER/KIDNEY EXAM: Yes no CVA tenderness Back/Pelvis: COMMON NORMALS: no CVA tenderness and thoracic and lumbar spine normal to inspection Extremity: COMMON NORMALS: normal to inspection Neuro: SENSORIUM/ORIENTATION: Yes alert Skin: COMMON NORMALS: turgor normal GENERAL SKIN EXAM: turgor normal Course Vital Signs: Vital signs: Vital Signs Temperature 98.4 F 01/20/24 13:42 Pulse Rate 108 H 01/20/24 13:42 Respiratory Rate 16 01/20/24 13:42 Blood Pressure 138/84 01/20/24 13:42 Pulse Oximetry 96 01/20/24 13:42 Oxygen Delivery Me thod Room Air 01/20/24 13:42 MDM - General Adult Medical Decision Making Patient presents with complaints of throat discomfort. Patient also reports some difficulty of swallowing. On exam posterior pharynx is slightly erythematous with cobblestoning. Mild discharge is noted in the nose. Bilateral TMs normal. Lungs are clear to auscultation. Differential diagnosis includes but not limited to postnasal drip, seasonal allergies, exposed surgical implant device. CT scan of the soft tissues of the neck did not notice any abscess or any erosion of the wire into the esophagus or trachea. Dr. Massey, radiologist, discussed this with me and expressed a concern about the coiling of the wire at the base of the tongue which may be contributing to patient's discomfort. She recommended the images be reviewed by the patient's specialist to see if this is appropriate placement or if patient may need to have an adjustment to her wire. Patient has no signs of severe illness or injury. It is recommended at this time that she follow-up with her specialist for further evaluation and treatment. Copies of the CT were sent with patient to take to her specialist. Patient was recommended to use daily antihistamine to help with seasonal allergies otherwise. Lab Data Radiology Impressions Neck CT 01/20/24 14:06 IMPRESSION: 1. Redundant wires along the RIGHT lateral neck are slightly coiled and extending very close to the lateral RIGHT tongue base. No prior studies to evaluate for possible change in position. Wires do not extend into the oropharynx or nasopharynx. 2. No abscess or mass. All radiology interpretation(s) finalized by discharge Discharge Plan Discharge Patient Disposition: Home Clinical Impression: Seasonal allergies Pharyngitis Qualifiers: Pharyngitis/tonsillitis etiology: unspecified etiology Qualified Code(s): J02.9 - Acute pharyngitis, unspecified Condition: Stable Prescriptions: No Action hydrocodone-acetaminophen 10-325 mg tablet 1 tab PO Q4H PRN venlafaxine [Effexor XR] 75 mg capsule,extended release 24hr 75 mg PO QAM Qty: 90 2RF Rx Instructions: Take one capsule every morning aripiprazole [Abilify] 10 mg tablet 10 mg PO .evening Qty: 90 2RF Rx Instructions: Take one tablet in evening famotidine 20 mg tablet 40 mg PO BID Gemtesa 75 mg tablet 75 mg PO DAILY Jardiance 25 mg tablet 25 mg PO DAILY Qty: 90 3RF phenazopyridine [Pyridium] 200 mg tablet 200 mg PO Q8H PRN (Reason: pain) Qty: 6 0RF sulfamethoxazole-trimethoprim [Bactrim DS] 800-160 mg tablet 1 tab PO BID 7 Days Qty: 14 0RF atorvastatin 80 mg tablet See Rx Instructions .ROUTE .COMPLEX Qty: 90 3RF Dose Instruction: TAKE 1 TABLET BY MOUTH DAILY Rx Instructions: TAKE 1 TABLET BY MOUTH DAILY Ozempic 0.25 mg or 0.5 mg (2 mg/3 mL) pen injector 0.5 mg SUBCUT .weekly Qty: 3 11RF (DME) pen needle, diabetic [BD Ultra-Fine Vilma Pen Needle] 32 gauge x 5/32 needle See Rx Instructions .ROUTE .COMPLEX Qty: 40 11RF Dose Instruction: USE DIRECTED Rx Instructions: USE DIRECTED dicyclomine 10 mg capsule 10 mg PO QID Qty: 60 11RF Toujeo SoloStar U-300 Insulin 300 unit/mL (1.5 mL) insulin pen 40 unit SUBCUT BID Qty: 27 11RF gabapentin 300 mg capsule 300 mg PO DAILY Qty: 90 3RF Discharge Orders: Discharge ED (Routine); Ordered 01/20/24 Ordered By: Luis Goins Referrals: Jt Ruiz MD [Primary Care Provider] - Discharge Diet: Usual diet Discharge Activity: Increase activity as tolerated Patient Instructions: Allergies (ED) Activity Restrictions/Additional Instructions: Contact your specialist office for follow-up and further evaluation throat irritation. At this time your CT scan did not see any erosion of the wire into the esophagus or signs of an abscess. The radiologist and myself recommend following up with your specialist for further evaluation with the CD images to see if there may need to be an adjustment of the wire to help with your discomfort. Other possibility for the discomfort it was noted cobblestoning in the posterior pharynx which may be indication of postnasal drip and seasonal allergies. I recommend Claritin 10 mg 1 tablet 1-2 times daily to help with seasonal allergies. You may use throat spray or lozenges to help with your discomfort otherwise. Return to ER for new concerns or worsening symptoms such as high fever, or increased shortness of breath. Coding Level of Care Code ED Hat Finishing Materials Preparer for Gloria Valdez
--- NOTE | 2024-01-20 14:06 | CT_ITS ---
WS: [id number] CT NECK WITH CONTRAST HISTORY: pharyngitis, possible migrated Inspire wire TECHNIQUE: Contiguous 2 mm axial images are performed through the neck with intravenous contrast. Sag ittal and coronal reformats are also submitted. All CT scans at [facility] use at least one o f these dose optimization techniques: automated exposure control; mA and/or kV adjustment per patient size (includes targeted exams where dose is matched to clinical indication); or iterative reconstruc tion. CONTRAST: CONTRAST: Omnipaque 350; 100 mL IV. DLP: 335.04 mGy.cm COMPARISON: None available. Implanted wire is noted along the RIGHT neck. The wires extend from the RIGHT upper chest wall superi francisco along the soft tissues over the sternocleidomastoid muscle. Wire become coiled at the level of t he parotid gland and submandibular glands. The wires are very closely associated with the soft tissue s and do abut the lateral tongue muscles on the RIGHT. The wires do not extend into the oropharynx. No soft tissue mass. Small cervical chain lymph nodes. Mild atherosclerosis through the aortic arch. CT/CT neck wo con [id number] IMPRESSION: 1. Redundant wires along the RIGHT lateral neck are slightly coiled and extend ing very close to the lateral RIGHT tongue base. No prior studies to evaluate f or possible change in position. Wires do not extend into the oropharynx or naso pharynx. 2. No abscess or mass.
[2024-01-20 15:38] VITALS: BP 135/82; PULSE 100; O2SAT 92
[2024-01-20 15:41] VITALS: BP 135/82; PULSE 92; O2SAT 92
== END 2024-01-20 15:43 | disposition home or self-care (01) ==
PROVIDERS: Emergency Provider Nurse Practitioner Family; PCP Family Medicine
DX: J02.9 Acute pharyngitis, unspecified (principal); J30.2 Other seasonal allergic rhinitis; Z79.85 Long-term (current) use of injectable non-insulin antidiabetic drugs; Z79.4 Long term (current) use of insulin; I10 Essential (primary) hypertension; E11.40 Type 2 diabetes mellitus with diabetic neuropathy, unspecified
CPT/HCPCS: 70490; 99284

== ENCOUNTER → 2024-03-21 10:47 | Outpatient (BNVA) | payer MEDICARE, OTHER, SELFPAY | PROVIDERS: PCP Family Medicine; Visit Provider Family Medicine | DX: E11.22 Type 2 diabetes mellitus with diabetic chronic kidney disease (principal); I12.9 Hypertensive chronic kidney disease with stage 1 through stage 4 chronic kidney disease, or unspecified chronic kidney disease; N18.9 Chronic kidney disease, unspecified | CPT/HCPCS: 80053; 80061; 83036; 85025 ==

== ENCOUNTER 2024-04-07 11:00 | Outpatient (CLI) | payer MEDICARE, MEDICAID, SELFPAY ==
--- NOTE | 2024-04-07 11:02 | MM_ITS ---
WS: [id number] BILATERAL 3D TOMOSYNTHESIS DIGITAL SCREENING MAMMOGRAPHY WITH CAD CLINICAL INFORMATION: SCREENING HISTORY: Screening mammogram. No current complaints. COMPARISON: 2022 TECHNIQUE: Bilateral CC and MLO views. FINDINGS: Scattered fibroglandular densities bilaterally. No suspicious focal mass, asymmetry, calcifications, or architectural distortion. No evidence of malignancy. Incidental punctate calcifications. MM/MM [facility] tomosynthesis [id number] IMPRESSION: DENSITY: There are scattered areas of fibroglandular density. BI-RADS: 2 - Benign. FOLLOW UP: 1 Year Follow-up Recommend return to annual screening mammography.
== END 2024-04-07 11:01 | disposition home or self-care (01) ==
LOC: RAD 11:01
PROVIDERS: PCP Family Medicine; Visit Provider Family Medicine
DX: Z12.31 Encounter for screening mammogram for malignant neoplasm of breast (principal); R92.323 Mammographic fibroglandular density, bilateral breasts; R92.1 Mammographic calcification found on diagnostic imaging of breast
CPT/HCPCS: 77063; 77067

== ENCOUNTER → 2024-06-27 15:12 | Outpatient (BNVA) | payer MEDICARE, MEDICAID, OTHER, SELFPAY | PROVIDERS: PCP Family Medicine; Visit Provider Family Medicine | DX: I10 Essential (primary) hypertension (principal); E78.00 Pure hypercholesterolemia, unspecified; E11.9 Type 2 diabetes mellitus without complications; R09.81 Nasal congestion | CPT/HCPCS: 87400; 87426 ==

== ENCOUNTER → 2024-07-10 08:30 | Outpatient (BNVA) | payer MEDICARE, MEDICAID, SELFPAY | PROVIDERS: PCP Family Medicine; Visit Provider Family Medicine | DX: Z00.00 Encounter for general adult medical examination without abnormal findings (principal); I10 Essential (primary) hypertension; E11.9 Type 2 diabetes mellitus without complications | CPT/HCPCS: 80053; 80061; 83036; 85025 ==

== ENCOUNTER → 2024-10-20 08:29 | Outpatient (BNVA) | payer MEDICARE, MEDICAID, SELFPAY | PROVIDERS: PCP Family Medicine; Visit Provider Family Medicine | DX: Z00.00 Encounter for general adult medical examination without abnormal findings (principal); E11.9 Type 2 diabetes mellitus without complications; I10 Essential (primary) hypertension | CPT/HCPCS: 80053; 80061; 83036; 85025 ==

== ENCOUNTER → 2024-12-12 10:23 | Outpatient (BNVA) | payer MEDICARE, MEDICAID, OTHER, SELFPAY | PROVIDERS: PCP Family Medicine; Visit Provider Orthopaedic Surgery | DX: M25.512 Pain in left shoulder (principal) | CPT/HCPCS: 73030; 99204 ==

== ENCOUNTER → 2025-01-19 11:40 | Outpatient (BNVA) | payer MEDICARE, MEDICAID, SELFPAY | PROVIDERS: PCP Family Medicine; Visit Provider Family Medicine | DX: I10 Essential (primary) hypertension (principal); E11.9 Type 2 diabetes mellitus without complications | CPT/HCPCS: 80053; 80061; 83036; 85025 ==

== ENCOUNTER 2025-01-20 10:10 | Emergency (ER) | payer MEDICARE, MEDICAID, SELFPAY ==
[2025-01-20 10:18] VITALS: BP 140/81; PULSE 91; RESP 16; TEMP 36.7; O2SAT 98; BMI 37.2
--- OUTSIDE RECORDS SUMMARY | 2025-01-20 10:20 | XMS_ITS | Clinical Summary ---
Author Organization [facility] Address [address] [place] [address] Care Team Providers Care Engagement Liaison Name Role Phone Jt Ruiz MD Primary Care Provider [phone] Allergies No known active allergies Medications OTHER VITAMINS AND SUPPLEMENTS 0 Active ARIPiprazole (ABILIFY) 10 mg tablet Take 5 mg by mouth daily at bedtime. 0 Active HYDROcodone-lacey taminophen (NORCO) 10-325 mg Tablet Take 1 Tablet by mouth every 4 hours as needed for Pain, Moderate. 0 Active ondansetron (ZOFRAN) 4 mg Tablet Take 1 Tablet (4 mg) by mouth every 12 hours as needed for Nausea/Emesis. Take one tablet 30 min prior to each prep half. 2 Tablet 0 1 Active venlafaxine (EFFEXOR XR) 150 mg Extended Release 24 hour capsule Take 150 mg by mouth daily at bedtime. 9 Active Lactoperoxi/Glu c Oxid/Pot Thio (BIOTENE DRY MOUTH MM) 5 Sprays by Mucous Membrane route daily at bedtime. 9 Active atorvastatin (LIPITOR) 80 mg tablet Take 80 mg by mouth daily at bedtime . 5 Active dicyclomine (BENTYL) 10 mg capsuleIndicati ons:Chronic diarrhea Take 1 Capsule (10 mg) by mouth 4 times daily as needed for Pain (abd cramping). 360 Capsule 3 2 Active gabapentin (NEURONTIN) 300 mg capsule Take 300 mg by mouth daily at bedtime. 9 Active levocetirizine (XYZAL) 5 mg tablet Take 5 mg by mouth daily at bedtime. 9 Active TechLITE Pen Needle 32 gauge x 32 Needle USE DIRECTED 3 Active montelukast (SINGULAIR) 10 mg tablet Take 10 mg by mouth daily. 3 Active Accu-Chek Softclix Lancets 3 Active Toujeo SoloStar U-300 Insulin 300 unit/mL (1.5 mL) pen syringe 3 Active Jardiance 25 mg tablet Take 25 mg by mouth daily in the morning. 3 Active oxygen home delivery Home Oxygen Concentrator yes 1 L/M Sleep, Delivery Device: Nasal Cannula Portability: yes, May provide device best for patient needs(E system,home fill, conserving device) Length of Need: 99 months 1 Each 4 Active CPAP / BIPAP supplies Resmed CPAP 6cwp Length of need: 99 months Mask Type: per patient comfort with headgear every 6 months, mask only every 3 months,as needed cushions per month. Tubing: heated 1 every 3 months, water chamber 1 every 6 months, chin strap 1 every 6 months, filters disposable 2 per month, filters reusable 1 per 6 months, Efficacy data download and mask fitting. Please link efficiency data download to Dr. Clark account. Diagnosis: G47.33 1 Each 5 Active Gemtesa 75 mg Tablet Take 1 Tablet by mouth daily. 4 Active Active Problems Problem Noted Date Diagnosed Date Thoracic spinal stenosis 01/17/2020 Allergic rhinitis 01/17/2020 Hyperkalemia 01/17/2020 Spondylosis with myelopathy 04/05/2019 Obesity (BMI 30.0-34.9) 04/05/2019 Elevated serum creatinine 04/05/2019 Status post total left knee replacement 12/24/19 16 Status post total right knee replacement 015 Preoperative general physical examination 2014 Female stress incontinence 10/17/2010 S/P carpal tunnel release 08/01/2009 Depression Diabetes mellitus Essential hypertension EPIFANIO on CPAP Dyslipidemia Anxiety Fibromyalgia Osteoporosis Peripheral neuropathy Resolved Problems Problem Noted Date Diagnosed Date Resolved Date Primary osteoarthritis of right knee 05/07/2015 10/09/2015 Shortness of breath on exertion 10/09/2015 Encounters Date Type Department Care Team Description 01/10/2025 External Device Data STL ABSTRACTION Provider, Abstract 01/10/2025 External Device Data STL ABSTRACTION Provider, Abstract 01/10/2025 External Device Data STL ABSTRACTION Provider, Abstract 12/26/2024 External Device Data STL ABSTRACTION Provider, Abstract 12/19/2024 External Device Data STL ABSTRACTION Provider, Abstract 11/15/2024 External Device Data STL ABSTRACTION Provider, Abstract 11/15/2024 External Device Data STL ABSTRACTION Provider, Abstract from Last 3 Months Immunizations Immunization Administration Dates Next Due (SPIKEVAX) (12 YRS UP PRIMAR Y SERIES) COVID-19 VACCINE - MRNA-1273(PF) 100 MCG/0.5 ML IM SUSP 09/18/2020,08/21/2020 Influenza Seasonal Unspecified Formulation IM Family History Medical History Relation Name Comments Diabetes Brother Eliseo Heart Disease Brother Eliseo Asthma Father Valeria Heart Disease Father Valeria Liver Disease Father Valeria Respiratory Disease Father Valeria Diabetes Mother Ludmila High Cholesterol Mother Ludmila Hypertension Mother Ludmila Asthma Sister 1 Paulette Healthy Sister 2 Ann Breast Cancer Sister 3 Roxanna Healthy Son 1 Jt Other Son 2 Everton Healthy Son 3 Danny Colon Cancer Neg Hx Relation Name Status Comments Brother Eliseo Alive Father Valeria (Age 55) Mother Ludmila (Age 93) Sister 1 Paulette Alive Sister 2 Ann Alive Sister 3 Roxanna Alive Son 1 Jt Alive Son 2 Everton Suicide Son 3 Danny Alive Social History Tobacco Use Types Packs/Day Years Used Date Smoking Tobacco: Former Cigarettes Q uit: 05/24/2006 Smokeless Tobacco: Never Tobacco Cessation:Counseling Given: Not Answered Alcohol Use Standard Drinks/Week Comments Yes 0 (1 standard drink = 0.6 oz pur e alcohol) Comments Unknown Sex and Gender Information Value Date Recorded Sex Assigned at Not on file Legal Sex Female 2:32 AM TERRA COTTA ROOFER HELPER Gender Identity Not on file Sexual Orientation Not on file Last Filed Vital Signs Vital Sign Reading Time Taken Comments Blood Pressure 142/91 08/04/2024 9:48 AM TERRA COTTA ROOFER HELPER Pulse 94 08/04/2024 9:48 AM TERRA COTTA ROOFER HELPER Temperature 36.9 C (98.4 F) 08/04/2024 9:48 AM TERRA COTTA ROOFER HELPER Respiratory Rate 20 08/04/2024 9:48 AM TERRA COTTA ROOFER HELPER Oxygen Saturation 98% 08/04/2024 9:48 AM TERRA COTTA ROOFER HELPER Inhaled Oxygen Concentration - - Weight 94.2 kg (207 lb 9.6 oz) 08/04/2024 9:48 A M TERRA COTTA ROOFER HELPER Height 160 cm (5' 3 ) 08/04/2024 9:48 AM TERRA COTTA ROOFER HELPER Body Mass Index 36.77 08/04/2024 9:48 AM TERRA COTTA ROOFER HELPER Plan of Treatment Health Maintenance Due Date Last Done Comments DIABETES ANNUAL FOOT EXAM 1975 DIABETES ANNUAL RETINAL EXAM 1975 DIABETES MICROALBUMIN ANNUAL SCREEN 1975 LDL CHOLESTEROL ANNUAL 1975 DTAP/TDAP/TD VACCINES (1 - Tdap) 1976 FIT-DNA Q 3 years 2002 FIT/FOBT Q 1 year 2002 Flex Sig/CT Colonography Q 5 years 2002 ZOSTER VACCINE (1 of 2) 2007 PNEUMOCOCCAL VACCINE 50+ YEA RS (2 of 2 - PCV) 04/19/2015 04/19/2014 RSV VACCINE (60+ or ) (1 - Risk 60-74 years 1-dose series) 2017 BREAST CANCER SCREENING 06/12/2017 06/12/2016 OSTEOPOROSIS SCREENING 2022 DIABETES HBA1C Q 6 MONTHS 09/01/20222021, 01/17/2020, 01/17/2020, Additional history exists COVID-19 Vaccine (5 - 2023-2 5 season) 2024 04/07/2022, 11/12/2021, 09/18/2020, Additional history exists INFLUENZA VACCINE (#1) 2025 , 05/30/2019, 06/28/2017, Additional history exists COLORECTAL SCREENING 08/29/2030 08/29/2020, 08/30/19 21 Colorectal Cancer Screening 08/29/2030 Medical Devices Implanted Type Area Portrait Consultant Device Identifier Shelf Expiration Date Model / Serial / Lot Sealant Duraseal 5ml - [id number] Implanted:02/06 by Jabier Silva MD (Quantity not on file) Biological N/A: Spine Thoracic [facility] [id number] 03/27/2021 / / [id number] Cement Simplex Hvisc 6194-1-001 - [id number] Implanted:Qty: 1 on 05/30/2015 by Jerome Eugene MD Cement Right: Knee [employer] 11/25/2016 6194-1-001 / / [id number] Cement Simplex Hvisc 6194-1-001 - [id number] Implanted:Qty: 1 on 10/24/2015 by Jerome Eugene MD Cement Left: Knee [employer] 05/27/2017 6194-1-001 / / [id number] Hemostatic Surgiflo 8ml W/Thrombin 2993 - [id number] Implanted:02/06 by Jabier Silva MD (Quantity not on file) Hemostatic N/A: Spine Thoracic [employer] [id number] 11/25/2020 299 / / [id number] Hemostatic Surgifoam Sz12-7 1971 - [id number] Implanted:02/06 by Jabier Silva MD (Quantity not on file) Hemostatic N/A: Spine Thoracic [employer] [id number] 08/03/2023 1972 / / [id number] Hemostatic Surgicel 3x4in 1942 - S0 [id number] Implanted:Qty: 1 on 06/08/2023 by Fredo Conley MD at [facility] Hemostatic Right: Chest Wall [employer] 08/06/20273 / [id number] 22 / Comp Fem Trthln Cr Sz4 Rt 5510-F-402 - [id number] Implanted:Qty: 1 on 05/30/2015 by Jerome Eugene MD Knee [employer] 03/27/2020 5510-F-402 / / [id number] Comp Tib Triathlon Cmnt 5520-B-400 - [id number] Implanted:Qty: 1 on 05/30/2015 by Jerome Eugene MD Knee [employer] 05/08/2020 5520-B-400 / / [id number] Insert Tib Triathlon Cr 5530-P-411 - [id number] Implanted:Qty: 1 on 05/30/2015 by Jerome Eugene MD Knee [employer] 08/25/2016 5530-P-411 / / [id number] Patella Trthln Asym Poly 5551-L-299 - [id number] Implanted:Qty: 1 on 05/30/2015 by Jerome Eugene MD Knee [employer] 04/06/2020 5551-L-299 / / [id number] Comp Fem Trthln Cr Sz4 Lt 5510-F-401 - [id number] Implanted:Qty: 1 on 10/24/2015 by Jerome Eugene MD Knee Left: Knee [employer] 08/06/2020 5510-F-401 / / [id number] Comp Tib Triathlon Cmnt 5520-B-400 - [id number] Implanted:Qty: 1 on 10/24/2015 by Jerome Eugene MD Knee Left: Knee [employer] 09/21/2020 5520-B-400 / / [id number] Tib Trthln Cs Sz4 5531-P-409 - [id number] Implanted:Qty: 1 on 10/24/2015 by Jerome Eugene MD Knee Left: Knee [employer] 12/26/2019 5531-P-409 / / [id number] Patella Trthln Asym Poly 5551-L-299 - [id number] Implanted:Qty: 1 on 10/24/2015 by Jerome Eugene MD Knee Left: Knee [employer] 08/19/2020 5551-L-299 / / [id number] Lead Neurostimulator Inspire Stim Obstruct Sleep 4063 - [id number] Implanted:Qty: 1 on 06/08/2023 by Fredo Conley MD at [facility] Lead Right: Neck [employer] 03/10/2026 4063 / [id number] / Lead Neurostimulator Inspire Pulse Gen Obstruct Sleep 3028 - [id number] Implanted:Qty: 1 on 06/08/2023 by Fredo Conley MD at [facility] Lead Right: Chest Wall [employer] 04/14/2026 3028 / [id number] / Lead Neurostimulator Inspire Respiration-Sen sing Obstruct Sleep 4340 - [id number] Implanted:Qty: 1 on 06/08/2023 by Fredo Conley MD at [facility] Lead Right: Chest Wall [employer] 04/19/2026 4340 / [id number] / [id number] - Bladder Slings And Tapes - 1 - Sling Lynx Mid Urethra [id number] Implanted:Qty: 1 on 09/25/2010 Other N/A: Urethra [place] [employer]- UROLOGY/ETYMOLOGY TEACHER 01/25/2013 [id number] / . / [id number] Disc Mobi-C Crvcl 15x15 H5 Hw3745 - [id number] Implanted:Qty: 1 on 04/24/2019 by Jabier Silva MD Spine N/A: Neck LDR SPINE 07/29/2023 [id number] / / [id number] Disc Mobi-C Crvcl 15x17 H5 Id8427 - [id number] Implanted:04/24 by Jabier Silva MD (Quantity not on file) Spine N/A: Neck LDR SPINE 07/29/2023 [id number] / / [id number] Procedures Procedure Name Priority Date/Time Associated Diagnosis Comments COLONOSCOPY REPORT 08/29/2020 7: 49 AM TERRA COTTA ROOFER HELPER HEMOGLOBIN A1C Routine 01/17/2020 1:29 PM CDT from Last 3 Months or Most Recently Relevant to Health Maintenance Results * COLONOSCOPY REPORT (08/29/2020 7:49 AM TERRA COTTA ROOFER HELPER) Narrative Procedure Note Sudhir Coronado DO - 08/29/2020 7:49 AM CST Procedures signed by Sudhir Coronado DO at 08/29/2020 7:49 AM Author: Sudhir Coronado DO Service: -- Author Type: Physician Filed: 08/29/2020 7:49 AM Date of Service: 08/29/2020 7:49 AM Status:Signed Journalists And Other Writers: Sudhir Coronado DO (Physician) Procedure Orders 1. COLONOSCOPY REPORT [[id number]] ordered by Sudhir Coronado DOat 08/29/[address] [facility] GI Patient Name: Corrine Ren Procedure Date: 08/29/2020 Date of : 1955 Admit Type: Outpatient Age: 65 Attending MD: Sudhir Coronado MD Procedure: Colonoscopy Indications: Chronic diarrhea Providers: Sudhir Coronado MD Referring MD: Savannah Jerry MD Medicines: Propofol per Anesthesia Complications: No immediate complications. Procedure: After I obtained informed consent, the scope was passed under direct vision. Throughout the procedure, the patient's blood pressure, pulse, and oxygen saturations were monitored continuously. The Colonoscope was introduced through the anus and advanced to the cecum, identified by appendiceal orifice and ileocecal valve. The colonoscopy was performed without difficulty. The patient tolerated the procedure well. The quality of the bowel preparation was adequate to identify polyps. Estimated Blood Loss: Estimated blood loss was minimal. Findings: Internal hemorrhoids were found during retroflexion. The hemorrhoids were small. Normal mucosa was found in the entire colon. Biopsies for histology were taken with a cold forceps from the right colon and left colon for evaluation of microscopic colitis. The terminal ileum appeared normal. Impression: - Internal hemorrhoids. - Normal mucosa in the entire examined colon. Biopsied. - The examined portion of the ileum was normal. Recommendation: - Patient has a contact number available for emergencies. The signs and symptoms of potential delayed complications were discussed with the patient. Return to normal activities tomorrow. Written discharge instructions were provided to the patient. - Resume previous diet. - Continue present medications. - Repeat colonoscopy date to be determined after pending pathology results are reviewed for surveillance. Sudhir Coronado MD 08/29/2020 7:49:10 AM Number of Addenda: 0 Note Initiated On: 08/29/2020 7:22 AM Scope Withdrawal Time 0 hours 7 minutes 52 seconds Scope In: 7:35:22 AM Scope Out: 7:47:16 AM [address] [place], [place] Sudhir Coronado DO GI PROCEDURE ORDERABLES Edited Result - Final * (ABNORMAL) HEMOGLOBIN A1C (01/17/2020 1:29 PM CDT) HEMOGLOBIN A1C 8.0(H) <=5.6 % 01/17/2020 1:59 PM CDT [facility] EST. AVG GLUCOSE, A1C 183 mg/dL 01/17/2020 1:59 PM CDT [facility] Blood Venipuncture / Unknown 01/17/2020 1:29 PM CDT 01/17/2020 1:33 PM CDT Narrative [facility] - 01/17/2020 1:59 PM CDT HGB A1C INTERPRETATION NORMAL: <5.7% PRE-DIABETES: 5.7 - 6.4% DIABETES: 6.5% OR GREATER Wade Castillo MD CHEMISTRY ORDERABLES Final Resu lt [facility] CLIA #[id number] [address] [place] [address] [id number] [address] [place] [address] from Last 3 Months or Most Recently Relevant to Health Maintenance Insurance [place]ID [place] D[place] COMPLETE H[place] [facility] [id number] [facility] DUAL ADVANTAGE O DSNP * Guarantor: CORRINE REN Account Type Relation to Patient Date of Phone Billing Address Personal/Family [address] [place] [id number] [employer] Medicare Part D Advance Directives For more information, please contact: [phone] * Full Code (Latest Code Status on File) Date Activated Date Inactivated Comments 06/08/2023 9:21 AM 06/08/2023 1:29 PM * Full Code Date Activated Date Inactivated Comments 06/08/2023 6:54 AM 06/08/2023 9:21 AM Care Teams Engagement Liaison Relationship Specialty Start Date End Date Jt Ruiz MD [address] [place] [address] PCP - General Family Practice 04/30/22
--- OUTSIDE RECORDS SUMMARY | 2025-01-20 10:20 | XMS_ITS | Encounter Summary ---
Author Organization [facility] Address [address] [place] [address] Care Team Providers Care Business Editor Name Role Phone Rk Garcia NP Primary Care Provider [phone] Reason for Referral * CT Scan (Routine) - Closed Specialty Diagnoses / Procedures Referred By Contac t Referred To Contact Diagnoses Smoking greater than [address] LUNG SCREENING Savannah Jerry MD [address] [place] [address] Phone: tel: fax: [facility] Pre-Registration High View CALL TO MAKE APPOINTMENT ONLY [address] [place] [address] Phone: tel: fax: Referral ID Status Reason Start Date Expiration Date V isits Requested Visits Authorized [id number] Closed [facility] TO SCHEDULE (SGF) 07/01/2018 08/01/2019 1 1 TYPIST Encounter Details Date Type Department Care Team (Late st Contact Info) Description 07/01/2018 Ancillary Orders [facility] Pre-Registration High View CALL TO MAKE APPOINTMENT ONLY [address] [place] [address] Savannah Jerry MD [address] [place] [address] Smoking greater than 30 pack years Social History Tobacco Use Types Packs/Day Years Used Date Smoking Tobacco: Former Cigarettes 1 35 1 07/24/1970 - 05/24/2006 Smokeless Tobacco: Never Alcohol Use Standard Drinks/Week Comments Yes 0 (1 standard drink = 0.6 oz pure alcohol) wine or vodka 1 every 6-12 months Comments No Sex and Gender Information Value Date Recorded Sex Assigned at Not on file Legal Sex Female 4:48 AM MONOTYPIST Gender Identity Not on file Sexual Orientation Not on file documented as of this encounter Plan of Treatment Not on file documented as of this encounter Results * CT LUNG SCREENING (07/07/2018 12:32 PM MONOTYPIST) Anatomical Region Laterality Modality Chest Computed Tomogra phy 07/07/2018 12:3 2 PM MONOTYPIST Impressions 07/07/2018 3:32 PM MONOTYPIST IMPRESSION: No suspicious pulmonary nodules. RECOMMENDATION: Continue lung cancer screening CT in 12 months. Lung-RADS CATEGORY: 1 Lung-RADS 0 subcategory: N/A S modifier category: N/A S modifier 3 - Mass subcategory: N/A S modifier 4 - Other ILD subcategory: N/A [id number] Narrative 07/07/2018 3:[address] LUNG SCREENING COMPARISON: None Reason For Exam: See Diagnosis. Diagnosis: Smoking greater than 30 pack years. PROCEDURE: Helical 1.25 mm thick scans were obtained through the chest using low-dose technique. Soft tissue windows were reconstructed at 5 mm thick sections. Please note that detailed evaluation of the extrapulmonary structures is limited to some degree by the low-dose technique, and the lack of intravenous contrast. The exam was performed with automated exposure control, and on select scanners in the department, iterative reconstruction to minimize radiation exposure. FINDINGS: No suspicious pulmonary nodules. No focal consolidation. No pleural or pericardial effusion. No enlarged lymph nodes are seen within the chest within limitations of noncontrast technique. Mild three-vessel coronary arterial calcification is identified. Included upper abdomen is unrevealing. No acute osseous abnormality. Procedure Note [place] MD - 07/07/2018 CT LUNG SCREENING COMPARISON: None Reason For Exam: See Diagnosis. Diagnosis: Smoking greater than 30 pack years. PROCEDURE: Helical 1.25 mm thick scans were obtained through the chest using low-dose technique. Soft tissue windows were reconstructed at 5 mm thick sections. Please note that detailed evaluation of the extrapulmonary structures is limited to some degree by the low-dose technique, and the lack of intravenous contrast. The exam was performed with automated exposure control, and on select scanners in the department, iterative reconstruction to minimize radiation exposure. FINDINGS: No suspicious pulmonary nodules. No focal consolidation. No pleural or pericardial effusion. No enlarged lymph nodes are seen within the chest within limitations of noncontrast technique. Mild three-vessel coronary arterial calcification is identified. Included upper abdomen is unrevealing. No acute osseous abnormality. IMPRESSION: No suspicious pulmonary nodules. RECOMMENDATION: Continue lung cancer screening CT in 12 months. Lung-RADS CATEGORY: 1 Lung-RADS 0 subcategory: N/A S modifier category: N/A S modifier 3 - Mass subcategory: N/A S modifier 4 - Other ILD subcategory: N/A [id number] ORDERABLES Final R esult documented in this encounter Visit Diagnoses Diagnosis Smoking greater than 30 pack years Tobacco use disorder Smoking greater than 30 pack years Tobacco use disorder documented in this encounter Care Teams Business Editor Relationship Specialty Start Date End Date Rk Garcia NP [address] [place] [address] PCP - General Nurse Practitioner Family 08/22/20 documented as of this encounter
--- OUTSIDE RECORDS SUMMARY | 2025-01-20 10:20 | XMS_ITS | Encounter Summary ---
Author Organization [facility] Address [address] [place] [address] Care Team Providers Care Electric Motor Controls Assembler Name Role Phone Rk Garcia RELIEF MANAGER Primary Care Provider [phone] Encounter Details Date Type Department Care Team (Late st Contact Info) Description 08/01/2009 Ancillary Orders [facility] [address] [place] [address] Jocelyn Porras MD [address] [place] [address] Finger Pain Social History Tobacco Use Types Packs/Day Years Used Date Smoking Tobacco: Former Cigarettes 2 35 1 07/24/1971 - 05/24/2007 Alcohol Use Standard Drinks/Week Comments Yes 0 (1 standard drink = 0.6 oz pur e alcohol) rare Comments No Sex and Gender Information Value Date Recorded Sex Assigned at Not on file Legal Sex Female 4:48 AM LACQUER COATER Gender Identity Not on file Sexual Orientation Not on file documented as of this encounter Plan of Treatment Not on file documented as of this encounter Results * XR FINGER(S) RIGHT (08/01/2009 10:42 AM LACQUER COATER) Anatomical Region Laterality Modality Wrist / Hand Computed Radiogr aphy Narrative 08/05/2009 2:27 PM LACQUER COATER X-rays of her right thumb show joint space narrowing with some bone spur formation consistent with Eaton stage III arthritis. Procedure Note Jocelyn Porras MD - 08/07/2009 X-rays of her right thumb show joint space narrowing with some bone spurformation consistent with Eaton stage III arthritis. us Jocelyn Porras MD DIAGNOSTIC IMAGING ORDERABLE S Final Result documented in this encounter Visit Diagnoses Diagnosis Finger pain Pain in limb documented in this encounter Care Teams Electric Motor Controls Assembler Relationship Specialty Start Date End Date Rk Garcia, RELIEF MANAGER [address] [place] [address] PCP - General Nurse Practitioner Family 08/22/20 documented as of this encounter
--- OUTSIDE RECORDS SUMMARY | 2025-01-20 10:20 | XMS_ITS | Clinical Summary ---
Author Organization [facility] Address [address] [place] [address] Care Team Providers Care Family Services Worker Name Role Phone Rk Garcia FINGERPRINT CLASSIFIER Primary Care Provider [phone] Allergies No known active allergies Medications topiramate (TOPAMAX) 100 mg Oral Tab Take 100 mg by mouth 2 times daily. Active venlafaxine SR 24 hour (EFFEXOR XR) 75 mg Oral Cp24 Take 75 mg by mouth daily. 1 Active lisinopril (PRINIVIL) 10 mg Oral Tab Take 5 mg by mouth daily foster parent . Active metFORMIN (GLUCOPHAGE) 500 mg tablet Take 1,000 mg by mouth 2 times daily with meals. 5 Active atorvastatin (LIPITOR) 80 mg tablet Take 80 mg by mouth daily at bedtime . 5 Active meloxicam (MOBIC) 7.5 mg tablet Take 7.5 mg by mouth daily foster parent. Active gabapentin (NEURONTIN) 300 mg capsule Take 300 mg by mouth daily at bedtime. Active levocetirizine (XYZAL) 5 mg tablet Take 5 mg by mouth daily at bedtime. Active venlafaxine (EFFEXOR XR) 150 mg Extended Release 24 hour capsule Take 150 mg by mouth daily at bedtime. 9 Active Lactoperoxi/Glu c Oxid/Pot Thio (BIOTENE DRY MOUTH MM) 5 Sprays by Mucous Membrane route daily at bedtime. Active ARIPiprazole (ABILIFY) 10 mg tablet Take 5 mg by mouth daily at bedtime. Active oxybutynin chloride (DITROPAN XL) 10 mg Extended Release 24 hour tablet Take 10 mg by mouth daily at bedtime. Active OTHER VITAMINS AND SUPPLEMENTS Active tiZANidine (ZANAFLEX) 4 mg Tablet Take 1 Tablet (4 mg) by mouth every 6 hours as needed for Pain or Spasm. 40 Tablet 02/07/2020 11:35 AM CDT 0 Active HYDROcodone-lacey taminophen (NORCO) 10-325 mg Tablet Take 1 Tablet by mouth every 4 hours as needed for Pain, Moderate. Active traMADoL (ULTRAM) 50 mg tablet Take 50 mg by mouth every 6 hours as needed for Pain. Active Victoza 2-Robert 0.6 mg/0.1 mL (18 mg/3 mL) daily. 0 Active docosahexaenoic acid/epa (FISH OIL ORAL) Take by mouth daily. Active coenzyme Q10 Capsule Take 10 mg by mouth daily. Active ondansetron (Zofran) 4 mg Tablet Take 1 Tablet (4 mg) by mouth every 12 hours as needed for Nausea/Emesis. Take one tablet 30 min prior to each prep half. 2 Tablet 1 Active Active Problems Problem Noted Date Diagnosed Date Thoracic spinal stenosis 01/17/2020 Allergic rhinitis 01/17/2020 Hyperkalemia 01/17/2020 Spondylosis with myelopathy 04/05/2019 Obesity (BMI 30.0-34.9) 04/05/2019 Elevated serum creatinine 04/05/2019 Status post total left knee replacement 12/24/19 16 Status post total right knee replacement 015 Preoperative general physical examination 2014 Female stress incontinence 10/17/2010 S/P carpal tunnel release 08/01/2009 Anxiety Depression Diabetes mellitus Dyslipidemia Essential hypertension Osteoporosis Fibromyalgia EPIFANIO on CPAP Peripheral neuropathy Resolved Problems Problem Noted Date Diagnosed Date Resolved Date Primary osteoarthritis of right knee 05/07/2015 10/09/2015 Shortness of breath on exertion 10/09/2015 Immunizations Immunization Administration Dates Next Due Influenza Seasonal Unspecified Formulation IM Family History Medical History Relation Name Comments Diabetes Brother Max Heart Disease Brother Max Asthma Father Valeria Heart Disease Father Valeria Liver Disease Father Valeria Respiratory Disease Father Valeria Diabetes Mother Ludmila High Cholesterol Mother Ludmila Hypertension Mother Ludmila Healthy Sister 1 Ann Breast Cancer Sister 2 Roxanna Asthma Sister 3 Paulette Healthy Son 1 Jt Healthy Son 2 Danny Other Son 3 Everton Colon Cancer Neg Hx Relation Name Status Comments Brother Eliseo Alive Father Valeria (Age 55) Mother Ludmila (Age 93) Sister 1 Ann Alive Sister 2 Roxanna Alive Sister 3 Paulette Alive Son 1 Jt Alive Son 2 Danny Alive Son 3 Everton Suicide Social History Tobacco Use Types Packs/Day Years [...] on file Legal Sex Female 4:48 AM RETURN AGENT Gender Identity Not on file Sexual Orientation Not on file Last Filed Vital Signs Vital Sign Reading Time Taken Comments Blood Pressure 106/73 08/29/2020 8:10 AM RETURN AGENT Pulse 83 08/29/2020 8:10 AM RETURN AGENT Temperature 36.4 C (97.6 F) 02/23/2020 12:21 PM CDT Respiratory Rate 20 08/29/2020 8:10 AM RETURN AGENT Oxygen Saturation 100% 08/29/2020 8:10 AM RETURN AGENT Inhaled Oxygen Concentration - - Weight 86.2 kg (190 lb) 08/21/2020 3:25 PM RETURN AGENT Height 160 cm (5' 3 ) 08/21/2020 3:25 PM RETURN AGENT Body Mass Index 33.66 08/21/2020 3:25 PM RETURN AGENT Plan of Treatment Health Maintenance Due Date Last Done Comments DIABETES ANNUAL FOOT EXAM 1975 DIABETES ANNUAL RETINAL EXAM 1975 DIABETES MICROALBUMIN ANNUAL SCREEN 1975 LDL CHOLESTEROL ANNUAL 1975 DTAP/TDAP/TD VACCINES (1 - Tdap) 1976 PNEUMOCOCCAL VACCINE 50+ YEA RS (1 of 2 - PCV) 1976 FIT-DNA Q 3 years 2002 FIT/FOBT Q 1 year 2002 Flex Sig/CT Colonography Q 5 years 2002 ZOSTER VACCINE (1 of 2) 2007 BREAST CANCER SCREENING 06/12/2017 06/12/2016 DIABETES HBA1C Q 6 MONTHS 07/19/20202019, 04/05/2019, 03/29/2017, Additional history exists OSTEOPOROSIS SCREENING 2022 INFLUENZA VACCINE (#1) 2025 04/25/2015 COLORECTAL SCREENING 08/29/2030 08/29/2020, 08/30/19 21 Colorectal Cancer Screening 08/29/2030 RSV VACCINE (60+ or ) (1 - 1-dose 75+ series) 2032 Medical Devices Implanted Type Area Switchboard Operator Assistant Device Identifier Shelf Expiration Date Model / Serial / Lot Sealant Duraseal 5ml [id number] Implanted:05/2020 by Jabier Silva MD at [facility] (Quantity not on file) Biological N/A: Spine Thoracic [employer] [facility] [id number] 03/27/2021 / / [id number] Cement Simplex Hvisc 6194-1-001 - [id number] Implanted:Qty : 1 on 05/30/2015 by Jerome Eugene MD at [facility] Cement Right: Knee [employer] 11/25/2016 6194-1-00 / / [id number] W Cement Simplex Hvisc 6194-1-001 - [id number] Implanted:Qty : 1 on 10/24/2015 by Jerome Eugene MD at [facility] Cement Left: Knee [employer] 05/27/2017 6194-1-00 / / [id number] Hemostatic Surgiflo 8ml W/Thrombin 2993 - [id number] Implanted:05/2020 by Jabier Silva MD at [facility] (Quantity not on file) Hemostatic N/A: Spine Thoracic [employer] [id number] 11/25/2020 299 / / [id number] Hemostatic Surgifoam Sz12-7 1971 - [id number] Implanted:05/2020 by Jabier Silva MD at [facility] (Quantity not on file) Hemostatic N/A: Spine Thoracic [employer] [id number] 08/03/20231971 / / [id number] Comp Tib Triathlon Cmnt 5520-B-400 - [id number] Implanted:Qty : 1 on 05/30/2015 by Jerome Eugene MD at [facility] Knee [employer] 05/08/2020 5520-B-40 0 / / [id number] Insert Tib Triathlon Cr 5530-P-411 - [id number] Implanted:Qty : 1 on 05/30/2015 by Jerome Eugene MD at [facility] Knee [employer] 08/25/2016 5530-P-41 1 / / [id number] Patella Trthln Asym Poly 5551-L-299 - [id number] Implanted:Qty : 1 on 05/30/2015 by Jerome Eugene MD at [facility] Knee [employer] 04/06/2020 5551-L-29 9 / / [id number] Comp Fem Trthln Cr Sz4 Rt 5510-F-402 - [id number] Implanted:Qty : 1 on 05/30/2015 by Jerome Eugene MD at [facility] Knee [employer] 03/27/2020 5510-F-40 2 / / [id number] Comp Tib Triathlon Cmnt 5520-B-400 - [id number] Implanted:Qty : 1 on 10/24/2015 by Jerome Eugene MD at [facility] Knee Left: Knee [employer] 09/21/2020 5520-B-40 0 / / [id number] Comp Fem Trthln Cr Sz4 Lt 5510-F-401 - [id number] Implanted:Qty : 1 on 10/24/2015 by Jerome Eugene MD at [facility] Knee Left: Knee [employer] 08/06/2020 5510-F-40 1 / / [id number] Patella Trthln Asym Poly 5551-L-299 - [id number] Implanted:Qty : 1 on 10/24/2015 by Jerome Eugene MD at [facility] Knee Left: Knee [employer] 08/19/2020 5551-L-29 9 / / [id number] Tib Trthln Cs Sz4 5531-P-409 - [id number] Implanted:Qty : 1 on 10/24/2015 by Jerome Eugene MD at [facility] Knee Left: Knee [employer] 12/26/2019 5531-P-40 9 / / [id number] - Bladder Slings And Tapes - 1 - Sling [employer] Mid Urethra [id number] Implanted:Qty : 1 on 09/25/2010 at [facility] Other N/A: Urethra [employer] 01/25/2013 [id number] / . / [id number] 1 Disc Mobi-C Crvcl 15x15 H5 [id number] - [id number] Implanted:Qty : 1 on 04/24/2019 by Jabier Silva MD at [facility] Spine N/A: Neck LDR SPINE 07/29/2023 RR1584 / / [id number] Disc Mobi-C Crvcl 15x17 H5 [id number] - [id number] Implanted: by Jabier Silva MD at [facility] (Quantity not on file) Spine N/A: Neck LDR SPINE 07/29/2023 [id number] / / [id number] Procedures Procedure Name Priority Date/Time Associated Diagnosis Comments COLONOSCOPY REPORT 08/29/2020 7: 50 AM RETURN AGENT HEMOGLOBIN A1C Routine 01/17/2020 1:29 PM CDT from Last 3 Months or Most Recently Relevant to Health Maintenance Results * COLONOSCOPY REPORT (08/29/2020 7:50 AM RETURN AGENT) Narrative Procedure Note Sudhir Coronado DO - 08/29/2020 7:49 AM CST [facility] GI Patient Name: Corrine Ren Procedure Date: [...] AM Scope Out: 7:47:16 AM [address] [place], [place] Sudhir Coronado DO GI PROCEDURE ORDERABLES Final Result * (ABNORMAL) HEMOGLOBIN A1C (01/17/2020 1:29 PM CDT) HEMOGLOBIN A1C 8.0(H) <=5.6 % 01/17/2020 1:59 PM CDT [facility] EST. AVG GLUCOSE, A1C 183 mg/dL 01/17/2020 1:59 PM CDT [facility] Blood Venipuncture / Unknown 01/17/2020 1:29 PM CDT 01/17/2020 1:33 PM CDT Narrative [facility] - 01/17/2020 1:59 PM CDT HGB A1C INTERPRETATION NORMAL: <5.7% PRE-DIABETES: 5.7 - 6.4% DIABETES: 6.5% OR GREATER Wade Castillo MD CHEMISTRY ORDERABLES Final Resu lt [facility] CLIA #[id number] [address] [place] [address] from Last 3 Months or Most Recently Relevant to Health Maintenance Insurance MEDICAID [facility] [id number] [facility] [employer] Medicare Part D Advance Directives For more information, please contact: [phone] * Full Code (Latest Code Status on File) Date Activated Date Inactivated Comments 08/29/2020 6:40 AM 08/29/2020 10:38 AM * Full Code Date Activated Date Inactivated Comments 02/07/2020 7:18 AM 02/07/2020 4:54 PM * Full Code Date Activated Date Inactivated Comments 02/07/2020 5:10 AM 02/07/2020 7:18 AM * Full Code Date Activated Date Inactivated Comments 04/24/2019 9:20 PM 04/25/2019 1:18 PM * Full Code Date Activated Date Inactivated Comments 04/24/2019 3:41 PM 04/24/2019 9:20 PM Care Teams Family Services Worker Relationship Specialty Start Date End Date Rk Garcia NP [address] [place] [id number] PCP - General Nurse Practitioner Family 08/22/20
--- OUTSIDE RECORDS SUMMARY | 2025-01-20 10:20 | XMS_ITS | Patient Health Record ---
Author Organization [facility] Address [address] [place] [address] Support Name Relationship Address , Danny Ren Emergency Contact Unknown Unavailable Corrine Ren Guarantor Unknown [phone] Care Team Providers Care Test Designer Name Role Phone Jt Ruiz Primary Care Provider UnavailCrescencio Luna Unavailable [phone] Migration, Provider Unavailable Unavailable Lulu Waldron Unavailable [phone] Allergies No Known Allergies Results Component Value Reference Range Flag Notes MRI Lumbar Spine w/o Cont-72 [id number] Reviewed date:10/11/2024 02:35:20 PM Interpretation: Performing Lab: Notes/Report: [id number] Drug Screen (confir mation by instrument) - [id number] Reviewed date:07/19/2024 04:23:27 PM Interpretation: Performing Lab: Notes/Report: Schedule Confirmation (Not y et reviewed by provider) Interpretation: Performing Lab: Notes/Report: MRI Lumbar Spine w/o Cont Tox Results Reviewed date:12/06/2024 02:57:54 PM Interpretation: Performing Lab: Notes/Report: Urine Drug Screen (cup read) - [id number] Reviewed date:11/29/2024 12:39:02 PM Interpretation: Performing Lab: Notes/Report: AMP - PARKER - BUP - BZO - MDMA - OPI + PCP - OXY - MTD - MAMP - Urine Confirmation Panel (in strument) - [id number] Reviewed date:12/06/2024 02:49:30 PM Interpretation: Performing Lab: Notes/Report: 6-Acetylmorphine 0 <6 ng/mL N This al t was developed and its performance characteristics determined by [facility]. It has not been cleared or approved by the U.S. Food and Drug Administration. 7-Aminoclonazepam 0 <60 ng/mL N This te st was developed and its performance characteristics determined by [facility]. It has not been cleared or approved by the U.S. Food and Drug Administration. Alprazolam 0 <60 ng/mL N This test was developed and its performance characteristics determined by [facility]. It has not been cleared or approved by the U.S. Food and Drug Administration. Amphetamine 0 <75 ng/mL N This test was developed and its performance characteristics determined by [facility]. It has not been cleared or approved by the U.S. Food and Drug Administration. aOH-Alprazolam 0 <60 ng/mL N This test was developed and its performance characteristics determined by [facility]. It has not been cleared or approved by the U.S. Food and Drug Administration. Buprenorphine 0.0 <7.5 ng/mL N This test w as developed and its performance characteristics determined by [facility]. It has not been cleared or approved by the U.S. Food and Drug Administration. Norbuprenorphine 0.0 <37.5 ng/mL N This te st was developed and its performance characteristics determined by [facility]. It has not been cleared or approved by the U.S. Food and Drug Administration. Carisoprodol 0 <75 ng/mL N This test wa s developed and its performance characteristics determined by [facility]. It has not been cleared or approved by the U.S. Food and Drug Administration. Codeine 0 <75 ng/mL N This test was developed and its performance characteristics determined by [facility]. It has not been cleared or approved by the U.S. Food and Drug Administration. EDDP 0 <75 ng/mL N This test was developed and its performance characteristics determined by [facility]. It has not been cleared or approved by the U.S. Food and Drug Administration. Fentanyl 0 <6 ng/mL N This test was developed and its performance characteristics determined by [facility]. It has not been cleared or approved by the U.S. Food and Drug Administration. Hydrocodone 496 <75 ng/mL H This test was developed and its performance characteristics determined by [facility]. It has not been cleared or approved by the U.S. Food and Drug Administration. Hydromorphone 226 <75 ng/mL H This test w as developed and its performance characteristics determined by [facility]. It has not been cleared or approved by the U.S. Food and Drug Administration. Lorazepam 0 <60 ng/mL N This test was developed and its performance characteristics determined by [facility]. It has not been cleared or approved by the U.S. Food and Drug Administration. MDMA 0 <75 ng/mL N This test was developed and its performance characteristics determined by [facility]. It has not been cleared or approved by the U.S. Food and Drug Administration. Meperidine 0.0 <37.5 ng/mL N This test was developed and its performance characteristics determined by [facility]. It has not been cleared or approved by the U.S. Food and Drug Administration. Meprobamate 0 <75 ng/mL N This test was developed and its performance characteristics determined by [facility]. It has not been cleared or approved by the U.S. Food and Drug Administration. Methamphetamine 33 <75 ng/mL N This test was developed and its performance characteristics determined by [facility]. It has not been cleared or approved by the U.S. Food and Drug Administration. Methadone 0 <75 ng/mL N This test was developed and its performance characteristics determined by [facility]. It has not been cleared or approved by the U.S. Food and Drug Administration. Morphine 0 <75 ng/mL N This test was developed and its performance characteristics determined by [facility]. It has not been cleared or approved by the U.S. Food and Drug Administration. Nordiazepam 0 <60 ng/mL N This test was developed and its performance characteristics determined by [facility]. It has not been cleared or approved by the U.S. Food and Drug Administration. Norfentanyl 0 <6 ng/mL N This test was developed and its performance characteristics determined by [facility]. It has not been cleared or approved by the U.S. Food and Drug Administration. Normeperidine 0.0 <37.5 ng/mL N This test was developed and its performance characteristics determined by [facility]. It has not been cleared or approved by the U.S. Food and Drug Administration. O-desmethyltramadol 58 <75 ng/mL N This test was developed and its performance characteristics determined by [facility]. It has not been cleared or approved by the U.S. Food and Drug Administration. Oxazepam 0 <60 ng/mL N This test was developed and its performance characteristics determined by [facility]. It has not been cleared or approved by the U.S. Food and Drug Administration. Oxycodone 0.0 <37.5 ng/mL N This test was developed and its performance characteristics determined by [facility]. It has not been cleared or approved by the U.S. Food and Drug Administration. Oxymorphone 0 <75 ng/mL N This test was developed and its performance characteristics determined by [facility]. It has not been cleared or approved by the U.S. Food and Drug Administration. Phencyclidine 0.0 <7.5 ng/mL N This test w as developed and its performance characteristics determined by [facility]. It has not been cleared or approved by the U.S. Food and Drug Administration. Tapentadol 0.0 <37.5 ng/mL N This test was developed and its performance characteristics determined by [facility]. It has not been cleared or approved by the U.S. Food and Drug Administration. Temazepam 0 <60 ng/mL N This test was developed and its performance characteristics determined by [facility]. It has not been cleared or approved by the U.S. Food and Drug Administration. Tramadol 0 <75 ng/mL N This test was developed and its performance characteristics determined by [facility]. It has not been cleared or approved by the U.S. Food and Drug Administration. Norhydrocodone 2135 <75 ng/mL H This test was developed and its performance characteristics determined by [facility]. It has not been cleared or approved by the U.S. Food and Drug Administration. Noroxycodone 0 <38 ng/mL N This test wa s developed and its performance characteristics determined by [facility]. It has not been cleared or approved by the U.S. Food and Drug Administration. Pregabalin 0 <225 ng/mL N This test was developed and its performance characteristics determined by [facility]. It has not been cleared or approved by the U.S. Food and Drug Administration. Gabapentin >66494 <225 ng/mL > This test was developed and its performance characteristics determined by [facility]. It has not been cleared or approved by the U.S. Food and Drug Administration. Benzoylecgonine 0.0 <37.5 ng/mL N This al t was developed and its performance characteristics determined by [facility]. It has not been cleared or approved by the U.S. Food and Drug Administration. 4-Hydroxy Xylazine 0 <25 ng/mL N This t est was developed and its performance characteristics determined by [facility]. It has not been cleared or approved by the U.S. Food and Drug Administration. MRI Lumbar Spine w/o Cont-72 [id number] Reviewed date:10/11/2024 02:35:27 PM Interpretation: Performing Lab: Notes/Report: See Below For Report MRI Lumbar Spine w/o Cont Diagnosis Description: Spondylosis without myelopathy or radiculopathy, lumbosacral region Read See Below For Report Schedule Confirmation (Not y et reviewed by provider) Interpretation: Performing Lab: Notes/Report: MRI Lumbar Spine w/o Cont Reason For Referral Reason Left Shoulder eval a nd treat Diagnosis 1 Rotator cuff syndrom e of left shoulder (M75.102) Referral Organization [facility] Referring Provider First Name Crescencio Referring Provider Last Name John Referring Provider Speciality [facility] Referred Provider [facility] Referred Provider Specialty Orthopedic S urgery Referral Priority Routine Medications Medication SIG (Take, Route, Frequency, Duration) Notes Start Date End Date Status Lisinopril 10 MG Tablet Take 1 tablet(s) by mouth daily Oral; Duration: 30 Lisinopril 10mg Tablet Take 1 tablet(s) by mouth daily 08/08/2012 Active Venlafaxine HCl ER 150 MG Tablet Extended Release 24 Hour 1 tab po bid Oral; Duration: 30 Venlafaxine ER 150mg Tablets, Extended Release 1 tab po bid 08/08/2012 Active atorvastatin *Reorder from [facility] for eRx and Interaction Alerts* Active oxyBUTYnin Chloride *Pick strength-form from [facility] for eRX* Active Ativan 1 MG Tablet 1 tablet Orally twice a day; Duration: 1 days take one an hour before MRI and second if needed right before MRI Fill a few days before MRI pt will call 09/06/2024 Active metFORMIN HCl 500 MG Tablet 1 tab(s) po bid Oral; Duration: 30 Metformin HCl 500mg Tablet 1 tab(s) po bid 08/08/2012 Active CeleBREX 200 MG Capsule Take 1 capsule(s) by mouth bid Oral; Duration: 30 Celebrex 200mg Capsules Take 1 capsule(s) by mouth bid 08/08/2012 Active Symbicort 80-4.5 MCG/ACT Aerosol Inhale 2 inhalation(s) by mouth bid Inhalation; Duration: 30 Symbicort 80/4.5 Oral Inhaler Inhale 2 inhalation(s) by mouth bid 08/08/2012 Active Atorvastatin Calcium 80 MG Tablet Take 1 tablet(s) by mouth daily Oral; Duration: 30 Atorvastatin Calcium 80mg Tablet Take 1 tablet(s) by mouth daily 08/08/2012 Active pantoprazole *Reorder from [facility] for eRx and Interaction Alerts* Active Fish Oil *Pick strength-form from [facility] for eRX* Active Toujeo SoloStar U-300 Insulin *Reorder from [facility] for eRx and Interaction Alerts* Active Dicyclomine *Reorder from [facility] for eRx and Interaction Alerts* Active Topamax 100 MG Tablet 1 tab(s) po q 12 Oral; Duration: 30 Topamax 100mg Tablet 1 tab(s) po q 12 08/08/2012 Active traMADol HCl 50 MG Tablet 1 tab(s) po bid prn pain Oral; Duration: 30 Tramadol 50mg Tablet 1 tab(s) po bid prn pain 08/08/2012 Not-Taking Hydrocodone Bitartrate *Pick strength-form from [facility] for eRX* Active tramadol *Reorder from [facility] for eRx and Interaction Alerts* Active ARIPiprazole *Pick strength-form from [facility] for eRX* Active Lisinopril *Pick strength-form from [facility] for eRX* Active Abilify 10 MG Tablet Take 1 tablet(s) by mouth daily Oral; Duration: 30 Abilify 10mg Tablet Take 1 tablet(s) by mouth daily 08/08/2012 Active levocetirizine *Reorder from [facility] for eRx and Interaction Alerts* Active venlafaxine *Reorder from [facility] for eRx and Interaction Alerts* Not-Taking Aspirin 81 MG Tablet Chewable 1 tab(s) po q PM Oral; Duration: 30 Aspirin (ASA) 81mg Chewable Tablet 1 tab(s) po q PM 08/08/2012 Active HYDROcodone-Acetamin ophen 10-325 MG Tablet 1 tablet as needed Orally every 6 hrs; Duration: 30 days As needed Do not exceed 4 per day Fill on 07-15-25 11/29/2024 08/14/202 5 Active Social History Tobacco Use: Social History Observation Description Date Details (start date - stop date) Never Smoker NA - NA Social History Household: Social Info Question Answer Notes Household Marital status: Tobacco Use: Social Info Question Answer Notes Tobacco Control (Standard) Tobacco use: Nonsmoker Additional Details Category Social Info Options Details Miscellaneous: Legal problems: none Current Employment Status unempl oyed, on disability 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 No Migrated Social History Migrated Social History Alcoholic beverages? - No, Are you or is there a chance you could be - No, Currently on disability? - Yes, Drug or substance abuse? - No, Education - Grade School, Involved in any legal proceedings or lawsuits? - No, Marital Status - , Nonprescription drug use? - No, Participation in detoxification or rehabilitation - No, Smoking - No, Working currently? - No Section Notes: Patient is on disability Patient is on disability Problems Problem Type SNOMED Code ICD Code Onset Dates Problem Status W/U Status Risk Notes Problem Obesity (722445671) Obesity, unspecified (E66.9) Active confirmed Problem Chronic pain due to injury (893650701) Chronic pain due to trauma (G89.21) Active confirmed Problem Chronic pain syndrome (575241825) Chronic pain syndrome (G89.4) Active confirmed Problem Lumbosacral spondylosis without myelopathy (disorder) (89458921) Spondylosis without myelopathy or radiculopathy, lumbosacral region (M47.817) Active confirmed Problem Degeneration of cervical intervertebral disc (76629716) Other cervical disc degeneration, unspecified cervical region (M50.30) Active confirmed Problem Radiculopathy due to lumbar intervertebral disc disorder (671145124852200) Intervertebral disc disorders with radiculopathy, lumbar region (M51.16) Active confirmed Problem Degeneration of lumbar intervertebral disc (93911657) Other intervertebral disc degeneration, lumbar region (M51.36) Active confirmed Problem Lumbosacral radiculopathy (5942972) Radiculopathy, lumbosacral region (M54.17) Active confirmed Problem Fibromyalgia (946312899) Fibromyalgia (M79.7) Active confirmed Problem Post-laminectomy syndrome (68743736) Postlaminectomy syndrome, not elsewhere classified (M96.1) Active confirmed Problem Abnormal gait (85608157) Unspecified abnormalities of gait and mobility (R26.9) Active confirmed Problem Left rotator cuff syndrome (703719913129754) Rotator cuff syndrome of left shoulder (M75.102) Active confirmed Problem Recurrent urinary tract infection (404251184) Recurrent UTI (N39.0) Active confirmed Problem Lumbosacral radiculopathy (1740146) Lumbosacral radiculopathy (M54.17) Active confirmed Problem Abnormal gait (86127862) Abnormality of gait and mobility (R26.9) Active confirmed Problem Depressive disorder (18514963) Depressive disorder not elsewhere classified (311) Active confirmed Claudy-985 911- Problem Type II diabetes mellitus without complication (509637111) NIDDM (250.00) Active confirmed Claudy-985 911- Problem Screening for breast cancer (893304223) Screening for breast cancer (V76.10) Problem resolved confirmed Claudy-985 911- Problem Intermittent claudication (23780254) Intermittent claudication (443.9) Problem resolved confirmed Claudy-985 911- Problem Screening for malignant neoplasm of colon (806297799) Screening for colorectal cancer (V76.49) Problem resolved confirmed Claudy-985 911- Problem COPD - Chronic obstructive pulmonary disease (38571208) COPD (496) Problem resolved confirmed Claudy-985 911- Problem Impacted cerumen (83281161) External cerumen impaction (380.4) Problem resolved confirmed Claudy-985 911- Vital Signs Height-cm 160.02 cm 11/29/2024 Weight-kg 96.16 kg 11/29/2024 Height 63.00 in 11/29/2024 Weight 212 lbs 11/29/2024 BMI 37.55 kg/m2 11/29/2024 Procedures Procedure Date Ordered Date Performed Result Body Sit e Epidural, Lumbar/Sacral (Cau santo), w/ imaging guidance - [id number] 10/19/2024 10/19/2024 N/A Encounters Encounter Location Date Provider Diagnosis [facility] [address] [address] 10/11/2024 Crescencio Lopez Chronic pain due to trauma G89.21 ; Chronic pain syndrome G89.4 ; Other cervical disc degeneration, unspecified cervical region M50.30 ; Degeneration of intervertebral disc of lumbar region with discogenic back pain M51.360 ; Radiculopathy, lumbosacral region M54.17 ; Spondylosis without myelopathy or radiculopathy, lumbosacral region M47.817 ; Trochanteric bursitis, right hip M70.61 ; Fibromyalgia 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.7 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 [facility] [address] [address] 09/06/2024 Crescencio Lopez Chronic pain due to trauma G89.21 ; Chronic pain syndrome G89.4 ; Other cervical disc degeneration, unspecified cervical region M50.30 ; Degeneration of intervertebral disc of lumbar region with discogenic back pain M51.360 ; Radiculopathy, lumbosacral region M54.17 ; Spondylosis without myelopathy or radiculopathy, lumbosacral region M47.817 ; Trochanteric bursitis, right hip M70.61 ; Fibromyalgia M79.7 and retirement (current) use of opiate analgesic Z79.891 [facility] [address] [address] 07/13/2024 Lulu Waldron Chronic pain due to trauma G89.21 ; Other cervical disc degeneration, unspecified cervical region M50.30 ; Degeneration of intervertebral disc of lumbar region with discogenic back pain M51.360 ; Radiculopathy, lumbosacral region M54.17 ; Spondylosis without myelopathy or radiculopathy, lumbosacral region M47.817 ; Trochanteric bursitis, right hip M70.61 ; Fibromyalgia M79.7 and retirement (current) use of opiate analgesic Z79.891 [facility] [address] [place] [place] [address] 04/27/2024 Lulu Waldron [facility] [address] [place] [place] [address] 01/26/2024 [facility]io Lopez [facility] [address] [place] [address] 02/22/2024 [facility] [address] [place] [address] 10/19/2024 Crescencio Lopez Radiculopathy, lumbosacral region M54.17 [facility] [address] [place] [place] [place] [address] 11/29/2024 Crescencio Lopez Chronic pain syndrom e G89.4 ; Chronic pain due to trauma G89.21 ; Other cervical disc degeneration, unspecified cervical region M50.30 ; Degeneration of intervertebral disc of lumbar region with discogenic back pain M51.360 ; Radiculopathy, lumbosacral region M54.17 ; Trochanteric bursitis, right hip M70.61 ; Fibromyalgia M79.7 ; Rotator cuff syndrome of left shoulder M75.102 ; retirement (current) use of opiate analgesic Z79.891 and Spondylosis without myelopathy or radiculopathy, lumbosacral region M47.817 [facility] [address] [place] [address] 03/07/2024 Crescencio Murciaalf [facility] [address] [place] [place] [address] 08/08/2024 Crescencio Murciaalf [facility] [address] [place] [address] 07/13/2024 Crescencio Murciaalf [facility] [address] [place] [address] 07/09/2024 Lulu Waldron Chronic pain syndrom e G89.4 ; Intervertebral disc disorders with radiculopathy, lumbar region M51.16 ; Spondylosis without myelopathy or radiculopathy, lumbosacral region M47.817 ; Trochanteric bursitis, right hip M70.61 ; Chronic pain due to trauma G89.21 ; Postlaminectomy syndrome, not elsewhere classified M96.1 ; Fibromyalgia M79.7 ; Other cervical disc degeneration, unspecified cervical region M50.30 ; Lumbosacral radiculopathy M54.17 ; Abnormality of gait and mobility R26.9 ; Obesity, unspecified E66.9 ; Chronic prescription opiate use Z79.891 and H/O lumbosacral spine surgery Z98.890 [facility] [address] [place] [address] 06/29/2024 Crescencio Lopez [facility] [address] [place] [address] 06/08/2024 Crescencio Lopez Migrated_Facility 0 0 04/23/2024 Provider Migration Migrated_Facility 0 0 04/22/2024 Provider Migration [facility] [address] [place] [address] 08/14/2024 Crescencio Lopez Lumbosacral radiculopathy M54.17 Assessments Encounter Date Diagnosis (ICD Code) Assessment Notes Treatment Notes Treatment Clinical Notes Section Notes 07/09/2024 Chronic pain syndrome (ICD-10 - G89.4) 07/09/2024 Intervertebral disc disorders with radiculopathy, lumbar region (ICD-10 - M51.16) 07/13/2024 Other cervical disc degeneration, unspecified cervical region (ICD-10 - M50.30) 07/13/2024 Chronic pain due to trauma (ICD-10 - G89.21) 09/06/2024 Chronic pain due to trauma (ICD-10 - G89.21) 09/06/2024 Chronic pain syndrome (ICD-10 - G89.4) I had a nice visit with the patient today regarding her chronic pain issues. She feels like she is doing a little bit worse and is struggling to get around and exercise, and is even struggling using a recumbent bike due to the pain in her lower extremities. We discussed treatment options and at this point since it has been quite some time, we will get an updated lumbar MRI. We will get that order sent over. We did review her last urine drug screen which is consistent with what we had expected. We will provide some Ativan for her claustrophobia and continue her medication unchanged. We will see her back in about 6 weeks. Order lumbar MRI 10/19/2024 Radiculopathy, lumbosacral region (ICD-10 - M54.17) 11/29/2024 Chronic pain due to trauma (ICD-10 - G89.21) 11/29/2024 Chronic pain syndrome (ICD-10 - G89.4) I had a nice visit with the patient today regarding her chronic pain issues. She did well with her lumbar epidural steroid injection and feels like she's had some pretty good relief and is able to function a bit better. We did discuss her main complaint today which was her shoulders especially the left one. It does appear she has some degree of rotator cuff syndrome, and I would recommend a referral to an orthopedic surgeon to discuss this further. We'll get her over to see somebody and continue her medications unchanged. We'll see her back in about 2 months. RECOMMEND URINE TESTING TODAY Urine drug screening will be performed today to monitor compliance with opioid therapy or to serve as a baseline screen for a patient who may be a candidate for opioid therapy in the future, pending UDS results. We will monitor with in-office testing (rapid testing) today and review the results prior to dispensing prescription. All positive results will be sent for quantitative analysis to ensure accuracy and quantify amounts. Any expected positive results that return negative will also be sent for quantitative analysis. Any questionable read or any medication we cannot test for in the office confidently will be sent for quantitative analysis, as well. Patient has been made aware of this policy and agrees to abide by our urine testing policy. 10/11/2024 Chronic pain due to trauma (ICD-10 - G89.21) 10/11/2024 Chronic pain syndrome (ICD-10 - G89.4) I had a nice visit with the patient today regarding her chronic pain issues. She reports that the symptoms persist in her lumbar region radiating down into her lower extremities and it is worse on the right side. She says she got the MRI done and we did review that today which shows stenosis, mainly foraminal, at the L5-S1 level, worst on the right. We discussed treatment options and she is interested in trying another lumbar epidural steroid injection as it has been a couple of years since she has done one of these. We will get her setup with the epidural and continue her medications unchanged. Hopefully we can get her some relief as she is interested in getting into quilting and is having some increased pain with that. Schedule LESI 11/29/2024 Other cervical disc degeneration, unspecified cervical region (ICD-10 - M50.30) 09/06/2024 Other cervical disc degeneration, unspecified cervical region (ICD-10 - M50.30) 07/13/2024 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 - M51.360) 08/14/2024 Lumbosacral radiculopathy (ICD-10 - M54.17) 07/09/2024 Spondylosis without myelopathy or radiculopathy, lumbosacral region (ICD-10 - M47.817) 07/09/2024 Trochanteric bursitis, right hip (ICD-10 - M70.61) 07/13/2024 Radiculopathy, lumbosacral region (ICD-10 - M54.17) 09/06/2024 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 - M51.360) 10/11/2024 Other cervical disc degeneration, unspecified cervical region (ICD-10 - M50.30) 11/29/2024 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 - 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) 11/29/2024 Radiculopathy, lumbosacral region (ICD-10 - M54.17) 10/11/2024 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 - M51.360) 07/09/2024 Chronic pain due to trauma (ICD-10 - G89.21) 09/06/2024 Radiculopathy, lumbosacral region (ICD-10 - M54.17) 07/13/2024 Spondylosis without myelopathy or radiculopathy, lumbosacral region (ICD-10 - M47.817) 07/13/2024 Trochanteric bursitis, right hip (ICD-10 - M70.61) 07/09/2024 Postlaminectomy syndrome, not elsewhere classified (ICD-10 - M96.1) 09/06/2024 Spondylosis without myelopathy or radiculopathy, lumbosacral region (ICD-10 - M47.817) 10/11/2024 Radiculopathy, lumbosacral region (ICD-10 - M54.17) RECOMMEND THERAPEUTIC LUMBAR EPIDURAL STEROID INJECTION, levels L5-S1 The patient reports overall 50% improvement in function and decrease in pain for greater than one month from previous diagnostic WILY. The patient also reports improvement in tolerance to activities which generally cause pain. Based on the results of previous diagnostic WILY, a therapeutic WILY is recommended. Expectation from a successful therapeutic epidural steroid injection is at least 50-70% relief of pain from baseline and evidence of improved function for at least six to eight weeks after delivery. The goal of epidural steroid injections is to reduce pain and inflammation, restoring range of motion and, thereby, facilitating progress in more active treatment programs, and avoiding surgery. The procedure and risks were discussed with the patient including but not limited to infection, bleeding, neurological complications, side effects from medications, no change in pain, worsening of pain, or even . We also discussed conservative options, surgical options, and medical management with patient as well. The patient indicates understanding and wishes to proceed with the recommended treatment approach. The patient was given written information about the procedure and all questions were answered. 11/29/2024 Trochanteric bursitis, right hip (ICD-10 - M70.61) 11/29/2024 Fibromyalgia (ICD-10 - M79.7) 10/11/2024 Spondylosis without myelopathy or radiculopathy, lumbosacral region (ICD-10 - M47.817) 09/06/2024 Trochanteric bursitis, right hip (ICD-10 - M70.61) 07/09/2024 Fibromyalgia (ICD-10 - M79.7) 07/13/2024 Fibromyalgia (ICD-10 - M79.7) 07/13/2024 retirement (current) use of opiate analgesic (ICD-10 - Z79.891) 07/09/2024 Other cervical disc degeneration, unspecified cervical region (ICD-10 - M50.30) 09/06/2024 Fibromyalgia (ICD-10 - M79.7) 10/11/2024 Trochanteric bursitis, right hip (ICD-10 - M70.61) 11/29/2024 Rotator cuff syndrome of left shoulder (ICD-10 - M75.102) 11/29/2024 retirement (current) use of opiate analgesic (ICD-10 - Z79.891) 10/11/2024 Fibromyalgia (ICD-10 - M79.7) 09/06/2024 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 She states she is overall doing pretty well on her current medication regimen. She states she still has neck and lower back pain but feels with the help of her medication and periodic interventional procedures she is doing pretty well. She denies any changes in her health since we last seen her besides having COVID about a week ago. She will continue her medication at present level and return to clinic in 2 months to monitor for treatment effectiveness and compliance as well as for biannual appointment with Dr. Lopez. 09/06/2024 Other I, Nate Hicks, am scribing for Dr. Crescencio Lopez. I, Dr. Crescencio Lopez, personally performed the services described in this documentation, as scribed by Nate Hicks, and it is both accurate and complete. 10/11/2024 Other Nate Guillen, am scribing for Dr. Crescencio Lopez. I, Dr. Crescencio Lopez, personally performed the services described in this documentation, as scribed by Nate Hicks, and it is both accurate and complete. 11/29/2024 Other Yue Guillen, am scribing for Dr. Lopez. I, Dr. Lopez, personally performed the services described in this documentation, as scribed by Yue Quintana, and it is both accurate and complete. Plan Of Treatment Pending Test Test Name Order Date Schedule Confirmation 10/03/2024 Schedule Confirmation 10/03/2024 Next Appt Details Provider Name:Crescencio Lopez, 01/31/2025 09:40:00 AM, [address] [place], [address], Insurance Providers Payer Name Payer Address Payer Phone Subscriber Number Group Number Insured Name Patient Relationship to Insured Coverage Start Date Coverage End Date [facility] Medicare Replacement [address] [place] [address] [id number] Corrine Ren Self - patient is the insured Medical (General) History Medical History History ICD Code HyperlipidemiaHypertension F ibromyalgiaOsteoarthritis Type 2 Diabetes CURRENT MEDICAL PROVIDERS:[facility] PREVENTIVE HEALTH MAINTENANCE COLONOSCOPY: was last done 08/25/12 MAMMOGRAM: was last done 08/2012 with normal results INFLUENZA VACCINE: was last done 2011 Hep C Screening: was last done 08/08/12 with negative results PNEUMOCOCCAL VACCINE: was last done 2007 Surgical History Surgery Date(Month/Year) Back surgery skull fracture Urethral surgery Neck surgery Knee replacement surgery Carpal tunnel surgery
--- OUTSIDE RECORDS SUMMARY | 2025-01-20 10:20 | XMS_ITS | Encounter Summary ---
Author Organization [facility] Address [address] [place] [address] Care Team Providers Care Magnet Valve Assembler Name Role Phone Rk Garcia NP Primary Care Provider [phone] Encounter Details Date Type Department Care Team (Latest Contact Info) Description 05/19/2006 Outpatient Historical [facility] Orthopedics- 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
--- OUTSIDE RECORDS SUMMARY | 2025-01-20 10:20 | XMS_ITS | Encounter Summary ---
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 No / Unsure 02/07/2020 5:20 AM CDT documented as of this encounter Plan of Treatment Not on file documented as of this encounter Results * XR THORACOLUMBAR SPINE 1 VW (02/07/2020 10:07 AM CDT) Anatomical Region Laterality Modality Spine Computed Radiogr aphy 02/07/2020 10:0 7 AM CDT Impressions 02/07/2020 11:03 AM CDT IMPRESSION: Please see below. EXAM: XR THORACOLUMBAR SPINE 1 VW DATE/TIME OF EXAM: 02/07/2020 10:07 AM HISTORY: Other - Please see comments COMPARISON: None FINDINGS: Single intraoperative image of the thoracolumbar spine. With surgical retractors overlying the T10-T11 intervertebral disc space, based on the location of the most inferior (assumed to be 12th) rib. Narrative Procedure Note Maddie Ashley MD - 02/07/2020 IMPRESSION: Please see below. EXAM: XR THORACOLUMBAR SPINE 1 VW DATE/TIME OF EXAM: 02/07/2020 10:07 AM HISTORY: Other - Please see comments COMPARISON: None FINDINGS: Single intraoperative image of the thoracolumbar spine. With surgical retractors overlying the T10-T11 intervertebral disc space, based on the location of the most inferior (assumed to be 12th) rib. us Jabier Silva MD DIAGNOSTIC IMAGING ORDERABL ES Final Result documented in this encounter Visit Diagnoses Diagnosis Thoracic stenosis Spinal stenosis of thoracic region documented in this encounter Care Teams Machine Clerical Verifier Relationship Specialty Start Date End Date Rk Garcia NP [address] [place] [address] PCP - General Nurse Practitioner Family 08/22/20 documented as of this encounter
--- OUTSIDE RECORDS SUMMARY | 2025-01-20 10:20 | XMS_ITS | Encounter Summary ---
Author Organization [facility] Address [address] [place] [address] Care Team Providers Care Office Service Coordinator Name Role Phone Rk Garcia NP Primary Care Provider Reason for Referral * CT Scan (Routine) - Closed Specialty Diagnoses / Procedures Referred By Contac t Referred To Contact Radiology Diagnoses Smoking greater than [address] LUNG SCREENING (LDCT BASELINE OR ANNUAL) [place] LDCT FOR LUNG CA SCREEN Savannah Jerry MD [address] [place] [address] Phone: tel: fax: [facility] [address] [address] Phone: tel: fax: Referral ID Status Reason Start Date Expiration Date V isits Requested Visits Authorized [id number] Closed F MC TO SCHEDULE (SGF) 09/07/2019 01/06/2020 1 1 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 Encounter Details Date Type Department Care Team (Late st Contact Info) Description 08/03/2019 Ancillary Orders [facility] Pre-Registration [place] CALL TO MAKE APPOINTMENT ONLY [address] [place] [address] Savannah Jerry MD [address] [place] [address] Smoking greater than 30 pack years [...] on file 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 Exam: CT LUNG SCREENING (LDCT BASELINE OR ANNUAL) Date/Time of Exam: 12/04/2019 1:38 PM Reason For Exam: See Diagnosis. Diagnosis: Smoking greater than 30 pack years. Technique: Low-dose CT of the chest was performed without the use of contrast. Comparison: 07/07/2018. FINDINGS: Evaluation of the vasculature is limited without the use of contrast. Thoracic Inlet: The thoracic inlet is within normal limits. Lymph Nodes: No pathologic axillary, mediastinal or hilar lymph nodes are identified given limitations of lack of contrast. Heart: The heart is normal in size. There are coronary artery calcifications. There is no pericardial effusion. Thoracic Aorta: The thoracic aorta is nonaneurysmal. Pulmonary Arteries: The pulmonary arteries are within normal limits. Upper Abdomen: There is no significant upper abdominal pathology. Subcutaneous Soft Tissues: There is no significant subcutaneous soft tissue pathology. Bones: The osseous structures appear grossly intact. No suspicious osseous lesions are identified. Tracheobronchial Tree: The tracheobronchial tree is within normal limits. Lungs: There is no pulmonary consolidation. There are no suspicious pulmonary lesions. Pleura: There is no pleural effusion or pneumothorax. IMPRESSION: Lung-RADS 1: NEGATIVE. No nodules or definitely benign nodules. Continue annual screening with LDCT in 12 months. Narrative Procedure Note Crescencio Smith, DO - 12/04/2019 IMPRESSION: Please see below. Exam: CT LUNG SCREENING (LDCT BASELINE OR ANNUAL) Date/Time of Exam: 12/04/2019 1:38 PM Reason For Exam: See Diagnosis. Diagnosis: Smoking greater than 30 pack years. Technique: Low-dose CT of the chest was performed without the use of contrast. Comparison: 07/07/2018. FINDINGS: Evaluation of the vasculature is limited without the use of contrast. Thoracic Inlet: The thoracic inlet is within normal limits. Lymph Nodes: No pathologic axillary, mediastinal or hilar lymph nodes are identified given limitations of lack of contrast. Heart: The heart is normal in size. There are coronary artery calcifications. There is no pericardial effusion. Thoracic Aorta: The thoracic aorta is nonaneurysmal. Pulmonary Arteries: The pulmonary arteries are within normal limits. Upper Abdomen: There is no significant upper abdominal pathology. Subcutaneous Soft Tissues: There is no significant subcutaneous soft tissue pathology. Bones: The osseous structures appear grossly intact. No suspicious osseous lesions are identified. Tracheobronchial Tree: The tracheobronchial tree is within normal limits. Lungs: There is no pulmonary consolidation. There are no suspicious pulmonary lesions. Pleura: There is no pleural effusion or pneumothorax. IMPRESSION: Lung-RADS 1: NEGATIVE. No nodules or definitely benign nodules. Continue annual screening with LDCT in [address] MD [address] ORDERABLES Final R esult documented in this encounter Visit Diagnoses Diagnosis Smoking greater than 30 pack years Tobacco use disorder Smoking greater than 30 pack years Tobacco use disorder documented in this encounter Care Teams Office Service Coordinator Relationship Specialty Start Date End Date Rk Garcia NP [address] [place] [address] PCP - General Nurse Practitioner Family 08/22/20 documented as of this encounter
--- OUTSIDE RECORDS SUMMARY | 2025-01-20 10:20 | XMS_ITS | Encounter Summary ---
Author Organization [email or web address] Address [address] [place] [address] Care Team Providers Care Tubing Machine Operator Name Role Phone Jt Ruiz MD Primary Care Provider [phone] Encounter Details Date Type Department Care Team (Late st Contact Info) Description 01/10/2025 External Device Data [facility] ABSTRACTION Provider, Abstract NO ADDRESS ON FILE Social History Tobacco Use Types Packs/Day Years Used Date Smoking Tobacco: Former Cigarettes Q uit: 05/24/2006 Smokeless Tobacco: Never Alcohol Use Standard Drinks/Week Comments Yes 0 (1 standard drink = 0.6 oz pur e alcohol) Comments Unknown Sex and Gender Information Value Date Recorded Sex Assigned at Not on file Legal Sex Female 2:32 AM CREDIT DIRECTOR Gender Identity Not on file Sexual Orientation Not on file documented as of this encounter Plan of Treatment Not on file documented as of this encounter Visit Diagnoses Not on filedocumented in this encounter Care Teams Tubing Machine Operator Relationship Specialty Start Date End Date Jt Ruiz MD [address] [place] [address] PCP - General Family Practice 04/30/22 documented as of this encounter
--- OUTSIDE RECORDS SUMMARY | 2025-01-20 10:20 | XMS_ITS | Encounter Summary ---
Author Organization [facility] Address [address] [place] [address] Care Team Providers Care Photolith Operator Name Role Phone Rk Garcia NP Primary Care Provider [phone] Encounter Details Date Type Department Care Team (Latest Contact Info) Description 03/25/2006 Outpatient Historical [facility] Orthopedics- 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 Gender Identity Not on file Sexual Orientation Not on file documented as of this encounter Plan of Treatment Not on file documented as of this encounter Visit Diagnoses Diagnosis Primary localized osteoarthrosis, lower leg- Primary Sprain cruciate lig knee Sprain of cruciate ligament of knee Derangement of posterior horn of medial meniscus Pain in joint, lower leg documented in this encounter Care Teams Photolith Operator Relationship Specialty Start Date End Date Rk Garcia NP [address] [place] [address] PCP - General Nurse Practitioner Family 08/22/20 documented as of this encounter
--- NOTE | 2025-01-20 10:53 | USR_ITS ---
PROCEDURE INFORMATION: Exam: US Left Limited Joint or Other Non-Vascular Extremity Structure Exam date and time: 01/20/2025 11:17 AM Age: 69 years old Clinical indication: Mass or lump; Upper leg; Left; Additional info: Mass L thigh TECHNIQUE: Imaging protocol: US left limited joint or other nonvascular extremity structure. Real-time ultrasound with image documentation. Exam focused on the area of clinical interest. COMPARISON: US soft tissue/extremity [id number] 01/27/2021 7:03 AM FINDINGS: Soft tissues: Fatty tissue is seen in the left anterior thigh in the area of clinical concern. There is a slightly more localized lesion within the subcutaneous fat of the left anterior thigh which is isoechoic to adjacent fat which demonstrates subtle borders. This measures approximately 3.4 x 1.8 x 4.7 cm and corresponds to the region of the patient's lump. No suspicious sonographic mass is seen. US/US soft tissue/extremity [id number] IMPRESSION: Fatty tissue seen in the left anterior thigh in the area of clinical concern. There is a slightly more localized fat echogenicity lobule versus possible lipoma measuring approximately 3.4 x 1.8 x 4.7 cm in the region of the patient's lump. No suspicious sonographic mass seen.
--- NOTE | 2025-01-20 11:17 | W.ED.EXTPRO ---
HPI - Extremity Problem General: Chief complaint: Extremity Problem,Nontraumatic Stated complaint: spot on lt leg Time Seen by Provider: 01/20/25 10:53 History of Present Illness: 69-year-old female presents emergency room she has what she describes a spot on her left anterior thigh she is worried is a blood clot. No trauma no chest pain no shortness of breath no history of blood clots or DVT. Associated symptoms: Deny chest pain, fever(s) or rash Related Data Home Medications ?Medication ?Instructions ?Recorded ?Confirmed hydrocodone 10 mg-acetaminophen 1 tab PO Q4H PRN 06/30/19 01/16/25 325 mg tablet Previous Rx's ?Medication ?Instructions ?Recorded empagliflozin 25 mg tablet See Rx Instructions .Route 03/03/24 (Jardiance) .COMPLEX #90 tabs atorvastatin 80 mg tablet See Rx Instructions .Route 06/01/24 .COMPLEX #90 tabs famotidine 40 mg tablet 40 mg PO BID #180 tabs 08/31/24 dicyclomine 10 mg capsule 10 mg PO QID #60 caps 09/13/24 vibegron 75 mg tablet (Gemtesa) 75 mg PO DAILY #90 tabs 09/25/24 aripiprazole 10 mg tablet (Abilify) 10 mg PO .evening #90 tabs 09/29/24 venlafaxine 75 mg capsule,extended 75 mg PO QAM #90 caps 09/29/24 release 24 hr (Effexor XR) gabapentin 300 mg capsule 300 mg PO TID #270 caps 10/23/24 insulin glargine U-300 conc 300 40 unit (0.1333 mL) SUBCUT BID #27 10/23/24 unit/mL (1.5 mL) subcutaneous pen mL (Toujeo SoloStar U-300 Insulin) pen needle, diabetic 32 gauge x #100 ea 10/23/24 tirzepatide 5 mg/0.5 mL 5 mg (0.5 mL) SUBCUT .weekly #2 mL 11/27/24 subcutaneous pen injector (Mounjaro) diazepam 5 mg tablet (Valium) 5 mg PO DAILY PRN anxiety #2 tabs 01/08/25 metronidazole 500 mg tablet 500 mg PO TID #30 tabs 01/16/25 Allergies Allergy/AdvReac Type Severity Reaction Status Date / Time No Known Allergies Allergy Verified 12/12/24 10:24 Review of Systems Const: Denies: fever(s) or chills Card: Denies: chest pain Resp: Denies: dyspnea GI: Denies: abdominal pain : Denies: dysuria, urinary frequency or urinary urgency Musc: Denies: neck pain or back pain Skin/Breast: Denies: rash PFSH ED PFSH: Medical History Psychiatric care Chronic back pain Hypertension Mixed stress and urge urinary incontinence History of deviated nasal septum Recurrent UTI Major depressive disorder, recurrent episode, in partial remission with anxious distress History of skull fracture Obstructive sleep apnea Chronic post-traumatic stress disorder Osteoarthritis High blood pressure High cholesterol Type 2 diabetes mellitus Neuropathy History of fibromyalgia Surgical History History of thoracic surgery History of cervical spinal surgery History of bilateral knee replacement History of carpal tunnel surgery Hx of rotator cuff surgery Family History Son Suicide Father , AT 55 Heart disease Liver disease Mother , AT AGE 93 Natural Other Diabetes Hypertension Psychiatric illness Social History Smoking and tobacco/nicotine status: never used tobacco/nicotine Alcohol intake: current Alcohol intake frequency: holidays/special occasions only Substance/Drug Use: never Marital status: Current occupational status: disabled Physical Exam Const: COMMON NORMALS: no acute distress GENERAL APPEARANCE: cooperative and comfortable ORIENTATION/CONSCIOUSNESS: Yes awake, Yes oriented to person, Yes oriented to place and Yes oriented to time HENMT: COMMON NORMALS: normocephalic, atraumatic and hearing grossly normal bilaterally HEAD & SCALP: normocephalic and atraumatic Resp: COMMON NORMALS: normal respiratory effort, No retractions, No use of accessory muscles and clear to auscultation bilaterally AUSCULTATION: clear to auscultation bilaterally Cardio: COMMON NORMALS: regular rate, regular rhythm and No murmurs present (Cardio) RATE: regular rate RHYTHM: regular rhythm GI: COMMON NORMALS: Soft to palpation and No hepatosplenomegaly present AUSCULTATION: Yes normoactive bowel sounds PALPATION: Yes Soft to palpation, No Tenderness to palpation present (GI), No Guarding due to palpation present (GI) and Yes No hepatosplenomegaly present Extremity: COMMON NORMALS: normal to inspection, capillary refill normal, no clubbing, cyanosis or edema, no calf tenderness and no pedal edema OTHER: Firm palpable nodule distinctive from the other subcutaneous tissue in the left anterior thigh about 4 cm x 2 to 3 cm smooth edges no spiculations. Neuro: SENSORIUM/ORIENTATION: Yes oriented to person, Yes oriented to place and Yes oriented to time Skin: COMMON NORMALS: no rashes or lesions noted GENERAL SKIN EXAM: no rashes or lesions noted Course Vital Signs: Vital signs: Vital Signs Temperature 98.0 F 01/20/25 10:18 Pulse Rate 91 01/20/25 10:18 Respiratory Rate 16 01/20/25 10:18 Blood Pressure 140/81 01/20/25 10:18 Pulse Oximetry 98 01/20/25 10:18 Oxygen Delivery Me thod Room Air 01/20/25 10:18 MDM - Extremity (Nontraumatic) Medical Decision Making Ultrasound confirms likely lipoma. Reviewed with the tech looked at the films. No sign of any fluid levels. Will discharge home can follow-up with primary care they can remove or refer to general surgery for removal at patient's discretion Medical Records I reviewed the patient's medical records. All radiology interpretation(s) finalized by discharge Discharge Plan Discharge Patient Disposition: Home Clinical Impression: Lipoma Condition: Stable Prescriptions: No Action hydrocodone-acetaminophen 10-325 mg tablet 1 tab PO Q4H PRN gabapentin 300 mg capsule 300 mg PO TID Qty: 270 3RF (DME) pen needle, diabetic 32 gauge x /32 needle See Rx Instructions .ROUTE .COMPLEX Qty: 100 11RF Dose Instruction: USE DIRECTED Rx Instructions: USE DIRECTED Toujeo SoloStar U-300 Insulin 300 unit/mL (1.5 mL) insulin pen 40 unit SUBCUT BID Qty: 27 11RF Mounjaro 5 mg/0.5 mL pen injector 5 mg SUBCUT .weekly Qty: 2 5RF metronidazole 500 mg tablet 500 mg PO TID Qty: 30 0RF Jardiance 25 mg tablet See Rx Instructions .ROUTE .COMPLEX Qty: 90 3RF Dose Instruction: TAKE 1 TABLET BY MOUTH DAILY Rx Instructions: TAKE 1 TABLET BY MOUTH DAILY atorvastatin 80 mg tablet See Rx Instructions .ROUTE .COMPLEX Qty: 90 3RF Dose Instruction: TAKE 1 TABLET BY MOUTH DAILY Rx Instructions: TAKE 1 TABLET BY MOUTH DAILY famotidine 40 mg tablet 40 mg PO BID Qty: 180 11RF dicyclomine 10 mg capsule 10 mg PO QID Qty: 60 11RF Gemtesa 75 mg tablet 75 mg PO DAILY Qty: 90 3RF venlafaxine [Effexor XR] 75 mg capsule,extended release 24hr 75 mg PO QAM Qty: 90 2RF Rx Instructions: Take one capsule every morning aripiprazole [Abilify] 10 mg tablet 10 mg PO .evening Qty: 90 2RF Rx Instructions: Take one tablet in evening diazepam [Valium] 5 mg tablet 5 mg PO DAILY PRN (Reason: anxiety) Qty: 2 0RF Discharge Orders: Discharge ED (Routine); Ordered 01/20/25 Ordered By: Vin Orellana Referrals: Jt Riuz MD [Primary Care Provider, Family Practice] Discharge Diet: Usual diet Discharge Activity: Resume usual activity Patient Instructions: Opioid Safety, Pain Management, Patient Portal & Raul Instructions Activity Restrictions/Additional Instructions: [facility]. It is very important that you follow up as instructed or that you return to the Emergency Department should you have concerns or if your condition changes or worsens in any way. You were seen in the emergency room with the complaints of a nodule on the left anterior thigh. On ultrasound appears to be a lipoma these are benign. Follow-up with your primary care doctor they can remove this or refer you to a general surgeon to remove it if you wish Print Language: Divehi Coding Level of Care Code ED Rn Patient Care for Gloria Valdez
== END 2025-01-20 12:03 | disposition home or self-care (01) ==
PROVIDERS: Emergency Provider Family Medicine; PCP Family Medicine
DX: D17.24 Benign lipomatous neoplasm of skin and subcutaneous tissue of left leg (principal); E11.40 Type 2 diabetes mellitus with diabetic neuropathy, unspecified; I10 Essential (primary) hypertension
CPT/HCPCS: 76882; 99284

== ENCOUNTER 2025-02-01 09:17 | Outpatient (CLI) | payer MEDICARE, MEDICAID, SELFPAY ==
--- NOTE | 2025-02-01 09:21 | CT_ITS ---
WS: [id number] CT SHOULDER ARTHROGRAM Prior rotator cuff repair FINDINGS: Advanced joint arthritis AC joint with hypertrophic changes. Intra- articular contrast extends into the subacromial space and subdeltoid bursa. Small full-thickness tear only well visualized on the sagittal imaging series 16 image 76 with subacromial extension of contrast. This is just distal to the rotator cuff anchor. This is at the far anterior lateral supraspinatus insertion. Additional interstitial tear involving the distal supraspinatus at the level of the rotator cuff anchor with dissecting contrast extending to the myotendinous junction. Supraspinatus is otherwise intact. No tendon retraction. Normal infraspinatus. Normal teres minor. Subscapularis tendon appears intact. Biceps tendon appears intact within the bicipital groove. Intra-articular biceps tendon appears intact. Biceps labral anchor appears intact. Moderate to advanced degenerative narrowing of the glenohumeral articulation. Subchondral cystic change along the greater tuberosity. CT/CT shoulder LT w con [id number] IMPRESSION: 1. Advanced arthritis AC joint with mild downsloping acromion and slight impin gement of the distal supraspinatus with subacromial spurring. 2. Small full-thickness tear at the distal supraspinatus insertion with dissec ting contrast into the subacromial space and subdeltoid bursa. 3. Additional interstitial tear involving the supraspinatus extending to the m yotendinous junction. No tendon retraction. 4. Rotator cuff otherwise appears intact. 5. Biceps tendon appears intact.
--- NOTE | 2025-02-01 09:30 | IR_ITS ---
WS: [id number] SHOULDER ARTHROGRAM LEFT Fluoroscopic guided left shoulder arthrogram CLINICAL INFORMATION: M25.512 - Pain in left shoulder COMPARISON: None. PROCEDURE: The procedure including risks, benefits and complications were discussed with the patient, who agreed to proceed. Using sterile technique, the patient was prepped and draped in the usual sterile fashion. After 1% lidocaine injection using fluoroscopic guidance, a 22-gauge spinal needle was advanced into the glenohumeral joint. Approximately 13 ml of a solution containing 10 ml normal saline, 10 ml Omnipaque 240 was administered. No immediate complications. FLUOROSCOPY TIME: 1min [id number] # of spot films: 4 IR/IR arthrogram shoulderLT [id number] IMPRESSION: 1. Uncomplicated fluoroscopic-guided left shoulder arthrogram. 2. Suspected full-thickness rotator cuff tear with contrast dissecting into th e subacromial space. See following CT for anatomic detail.
[2025-02-01] MEDS: iohexol 240 mg/mL 50 mL Btl 20 ML INTRA-ARTI (10:53)
== END 2025-02-01 09:18 | disposition home or self-care (01) ==
LOC: RAD 09:18
PROVIDERS: PCP Family Medicine; Visit Provider Orthopaedic Surgery
DX: M19.012 Primary osteoarthritis, left shoulder (principal); M75.122 Complete rotator cuff tear or rupture of left shoulder, not specified as traumatic; G89.29 Other chronic pain
CPT/HCPCS: 23350; 73201; 77002; J9999; Q9966

== ENCOUNTER → 2025-02-13 09:02 | Outpatient (BNVA) | payer MEDICARE, MEDICAID, SELFPAY | PROVIDERS: PCP Family Medicine; Visit Provider Orthopaedic Surgery | DX: M25.512 Pain in left shoulder (principal); G89.29 Other chronic pain; Z79.4 Long term (current) use of insulin | CPT/HCPCS: 99213 ==

== ENCOUNTER 2025-04-09 08:17 | Outpatient (CLI) | payer MEDICARE, MEDICAID, SELFPAY ==
--- NOTE | 2025-04-09 08:20 | MM_ITS ---
WS: [id number] BILATERAL SCREENING DIGITAL TOMOSYNTHESIS MAMMOGRAM WITH CAD HISTORY: SCREENING COMPARISON: 04/07/2024, 04/05/2023, 03/05/2020 Bilateral CC and MLO views with tomosynthesis and synthetic mammography submitted. Computer aided detection analyzed. Breast composition: There are scattered areas of fibroglandular density. No suspicious masses, microcalcifications or architectural distortion. Stable calcifications and masses within each breast. No suspicious grouping of calcification or new mass. No distortion. MM/MM scr tomosynthesis [id number] IMPRESSION: BI-RADS: 2 - Benign. FOLLOW UP: 1 Year Follow-up
== END 2025-04-09 08:18 | disposition home or self-care (01) ==
LOC: RAD 08:17
PROVIDERS: PCP Family Medicine; Visit Provider Family Medicine
DX: Z12.31 Encounter for screening mammogram for malignant neoplasm of breast (principal); R92.323 Mammographic fibroglandular density, bilateral breasts; N64.89 Other specified disorders of breast
CPT/HCPCS: 77063; 77067

== ENCOUNTER → 2025-04-30 15:06 | Outpatient (BNVA) | payer MEDICARE, MEDICAID, SELFPAY | PROVIDERS: PCP Family Medicine; Visit Provider Family Medicine | DX: Z00.00 Encounter for general adult medical examination without abnormal findings (principal); I10 Essential (primary) hypertension; E11.9 Type 2 diabetes mellitus without complications | CPT/HCPCS: 80053; 80061; 83036; 85025 ==

== ENCOUNTER 2025-05-11 09:48 | Outpatient (CLI) | payer MEDICARE, MEDICAID, SELFPAY ==
--- NOTE | 2025-05-11 10:15 | US_ITS ---
WS: [id number] RENAL ULTRASOUND HISTORY: elevated Cr COMPARISON: None available. TECHNIQUE: 2-D and color Doppler imaging of the kidney submitted. Right kidney: 8.8 cm x 5.2 cm x 5.6 cm. Cortex: 1.4 cm Normal echogenicity with no hydronephrosis or mass. Tiny cortical cyst lower pole measures 1.0 x 1.0 x 0.8 cm. No solid mass. Left kidney: 9.6 cm x 4.4 cm x 5.0 cm. Cortex: 1.1 cm Normal echogenicity with no hydronephrosis or mass. Aorta: Normal. Urinary Bladder: Normal distention. US/US renal BI* [id number] IMPRESSION: 1. Normal size kidneys with no hydronephrosis. 2. Tiny cortical cyst lower pole RIGHT kidney.
== END 2025-05-11 09:49 | disposition home or self-care (01) ==
LOC: RAD 09:49
PROVIDERS: PCP Family Medicine; Visit Provider Family Medicine
DX: N17.9 Acute kidney failure, unspecified (principal)
CPT/HCPCS: 76770

== ENCOUNTER → 2025-05-14 09:19 | Outpatient (BNVA) | payer MEDICARE, MEDICAID, SELFPAY | PROVIDERS: PCP Family Medicine; Visit Provider Family Medicine | DX: N17.9 Acute kidney failure, unspecified (principal) | CPT/HCPCS: 80048 ==

== ENCOUNTER → 2025-05-18 09:42 | Outpatient (BNVA) | payer MEDICARE, MEDICAID, SELFPAY | PROVIDERS: PCP Family Medicine; Visit Provider Orthopaedic Surgery | DX: M75.102 Unspecified rotator cuff tear or rupture of left shoulder, not specified as traumatic (principal); M24.812 Other specific joint derangements of left shoulder, not elsewhere classified | CPT/HCPCS: 99213 ==

== ENCOUNTER → 2025-06-08 08:12 | Outpatient (BNVA) | payer MEDICARE, MEDICAID, SELFPAY | PROVIDERS: PCP Family Medicine; Visit Provider Family Medicine | DX: E11.9 Type 2 diabetes mellitus without complications (principal) | CPT/HCPCS: 80048 ==

== ENCOUNTER 2025-06-11 08:23 | Outpatient (CLI) | payer MEDICARE, MEDICAID, SELFPAY | END 2025-06-11 08:24 | disposition home or self-care (01) | LOC: SLEEP 08:24 | PROVIDERS: PCP Family Medicine; Referring Provider Specialist; Visit Provider Internal Medicine Pulmonary Disease | DX: G47.33 Obstructive sleep apnea (adult) (pediatric) (principal) | CPT/HCPCS: G0399 ==